=== PATIENT | male | born 1955 | race Caucasian/White ===

== ENCOUNTER → 2017-03-30 09:25 | Outpatient (CLI) | payer MEDICARE, SELFPAY ==
[2017-03-30 12:03] LABS: Absolute Lymphocyte Count 1.41 X10^3/ul (0.83-4.51); Absolute Neutrophil Count 3.3 X10^3/uL (2.0-7.7); Basophil# 0.03 X10^3/uL; Basophil% 0.5 % (0-1); Eosinophil# 0.42 X10^3/uL; Eosinophils% 7.2 % (0-5); Hematocrit 40.3 % (40-54); Hemoglobin 14.5 g/dl (13.0-16.5); Lymphocyte # 1.41 X10^3/ul (4.0); Lymphocyte % 24.3 % (19-41); Mean Corpuscular Hgb 32.4 pg (27.0-32.0); Mean Corpuscular Volume 90.2 fL (80-94); Mean Platelet Vol. 9.5 fl (6.2-12.0); Monocyte# 0.61 X10^3/uL; Monocyte% 10.5 % (0-10); Neutrophil # 3.29 X10^3/uL (2.7-7.7); Neutrophil % 56.8 % (47-70); Platelet Count 123 K/mm3 (150-450); RBC Distribution Width CV 13.4 % (11.6-14.6); RBC Distribution Width SD 43.3 fl (35.1-43.9); Red Blood Count 4.47 M/mm3 (4.6-6.2); White Blood Count 5.8 K/mm3 (4.4-11.0)
[2017-03-30 12:06] LABS: POSITIVE COUNT NO; POSITIVE DIFFERENTIAL NO; POSITIVE MORPHOLOGY NO
[2017-03-30 12:20] LABS: Hemoglobin A1c 5.6 % (4.2-6.3)
[2017-03-30 12:40] LABS: Anion Gap 11 (5-15); BUN 18 mg/dL (7-18); BUN/Creat Ratio 15.1 RATIO (10-20); Calcium,Total 8.4 mg/dL (8.5-10.1); Chloride 106 mmol/L (98-107); Cholesterol 93 mg/dL (200); Creatinine, Serum 1.19 mg/dL (0.70-1.30); EST Glomerular Filtration Rate 66 mL/min (>60); Est Glom Filt Rate - Afr Amer 80 mL/min (>60); Glucose 131 mg/dL (70-110); High Density Lipoprotein 26 mg/dL; Potassium 3.9 mmol/L (3.5-5.1); Sodium Level 140 mmol/L (136-145); Triglycerides 132 mg/dL; Very Low Density Lipoprotein 26 mg/dL (5-40)
== END ==
PROVIDERS: Family Provider Family Medicine; PCP Family Medicine; Visit Provider Family Medicine
DX: M10.9 Gout, unspecified (principal); K51.90 Ulcerative colitis, unspecified, without complications; E11.9 Type 2 diabetes mellitus without complications
CPT/HCPCS: 36415; 80048; 80061; 83036; 84550; 85025

== ENCOUNTER → 2017-09-29 07:33 | Outpatient (CLI) | payer MEDICARE, SELFPAY ==
[2017-09-29 10:45] LABS: Glucose 170 mg/dL (74-106); PSA,Total - Annual Screen 1.07 ng/mL (0.00-4.00)
[2017-09-29 10:54] LABS: Hemoglobin A1c 6.6 % (4.2-6.3)
== END ==
PROVIDERS: Family Provider Family Medicine; PCP Family Medicine; Visit Provider Family Medicine
DX: E11.9 Type 2 diabetes mellitus without complications (principal); Z12.5 Encounter for screening for malignant neoplasm of prostate
CPT/HCPCS: 36415; 82947; 83036; 84153; G0103

== ENCOUNTER → 2018-03-22 09:36 | Outpatient (CLI) | payer MEDICARE, SELFPAY ==
[2018-03-22 12:13] LABS: Anion Gap 8 (5-15); BUN 17 mg/dL (7-18); BUN/Creat Ratio 15.2 RATIO (10-20); Chloride 105 mmol/L (98-107); Cholesterol 97 mg/dL (200); Creatinine, Serum 1.12 mg/dL (0.70-1.30); EST Glomerular Filtration Rate 71 mL/min (>60); Est Glom Filt Rate - Afr Amer 86 mL/min (>60); Glucose 220 mg/dL (74-106); High Density Lipoprotein 25 mg/dL; Potassium 4.1 mmol/L (3.5-5.1); Sodium Level 140 mmol/L (136-145); Triglycerides 161 mg/dL; Very Low Density Lipoprotein 32 mg/dL (5-40)
[2018-03-22 12:18] LABS: Hemoglobin A1c 8.3 % (4.2-6.3)
--- OUTSIDE RECORDS SUMMARY | 2018-05-24 19:38 | XMS RPT_ITS ---
:1955 External Reference #:[id number] Author Organization [employer] Address [facility] [place] [address] Phone Care Team Providers Name Role Phone Jonathan Fregoso MD Unavailable Reason for Visit Reason For Visit Description Start Date Postop - subsequent visit Preliminary reason for visit data, not yet signed by the author as of right hand post Right thumb CMC arthroplasty with FCR tendoninterposition first dorsal compartment tenosynovectomy and partial trapezoid excision. on 01/12/2018 Preliminary reason for visit data, not yet signed by the author as of Chief Complaint Chief Complaint Description Start Date right hand post Right thumb CMC arthroplasty with FCR tendoninterposition first dorsal compartment tenosynovectomy and partial trapezoid excision. on 01/12/2018 Preliminary chief complaint data, not yet signed by the author as of Instructions No information available. Plan of Care Type Date Detail Appointment 08:15 AM Jonathan Fregoso MD, [address] [facility], [address], [place], [address], Appointment 09:[address] [place] [address] [address], [place], [address], Appointment 08:00 AM Jonathan Fregoso MD, [address] [facility], [address], [place], [address], Medications Medication Instructions Start Stop Generic Name NDC Provider Date Date TYLENOL EXTRA One per day for ACETAMINOPHEN [id number] Asmita C STRENGTH 500 MG pain, DiBartolomeo TABS two to three PA-C times per week. ATORVASTATIN 1 tablet daily ATORVASTATIN 00189377883 Jonathan Medina CALCIUM 10 MG /17 CALCIUM Zenobia MCMAHON TABS COLAZAL 750 MG 6 tablets daily BALSALAZIDE 23597536149 Nataliia Sumner CAPS /31 DISODIUM DIRECT MARKETING REPRESENTATIVE PRILOSEC OTC 20 1 tablet daily OMEPRAZOLE 92327052679 Nataliia Sumner MG TBEC / MAGNESIUM DIRECT MARKETING REPRESENTATIVE ALLOPURINOL 300 1 tablet daily ALLOPURINOL 44449831004 Nataliia Sumner MG TABS /09 DIRECT MARKETING REPRESENTATIVE JANUMET XR 1 tablet daily SITAGLIPTIN-MET 73315497575 Nataliia Sumner 50-1000 MG /23 FORMIN HCL DIRECT MARKETING REPRESENTATIVE [id number] LISINOPRIL 5 MG 1 tablet daily LISINOPRIL 32562346286 Nataliia Sumner TABS / DIRECT MARKETING REPRESENTATIVE Conditions or Problems Problem Problem Onset Status Entry Provider Comment Standard Annotate Name Code Date Date Description Rupture of 115662659 Active Jonathan Z Complete tear, chronic radial (SNOMED CT) 10/19 10/19 [place] thumb, collateral metacarpophala ligament of ngeal joint, right thumb radial collateral ligament Arthritis 55762139352 Active Jonathan Z Arthritis of right wrist of 09 ([facility] ezium-trape zoid joint Arthritis 03192748729 [place] [address] 10/19 10/19 [place] first carpometaca (SNOMED CT) carpometacarpchantal rpal (CMC) l joint of joint of right hand right thumb Venous 166071459 Active Brian Casas Venous insufficien (SNOMED CT) 03/08 03/08 Davey MCMAHON insufficiency cy of left of leg leg Arthritis 151381471 Active Brian Casas Disorder of mild of ankle, (SNOMED CT) 03/08 03/08 Davey MCMAHON ankle joint left Ulcerative 35229756 Active Brian Casas Ulcerative colitis (SNOMED CT) 03/08 03/08 Davey MCMAHON colitis Orthopedic 648512701 Active Brian Casas Follow-up aftercare (SNOMED CT) 03/04 03/04 Davey MCMAHON status -- left flatfoot reconstruct ion Type 2 96185646 Active Brian Casas Type 2 diabetes, (SNOMED CT) 07/08 07/08 Davey MCMAHON diabetes controlled, mellitus with neuropathy Acquired 95405547 Active Brian Casas Talipes planus left flat (SNOMED CT) 05/13 05/13 Davey MCMAHON foot Left 905663838 Active Brian Casas Tibialis tibialis (SNOMED CT) 05/13 05/13 Davey MCMAHON posterior posterior tendinitis tendonitis Posterior 42868669 Active Brian Casas Disorder of tendonopath tibialis (SNOMED CT) 05/13 05/13 Davey MCMAHON tendon y tendon insufficien cy Plantar 529060177 Active Brian Casas Plantar chronic fasciitis, (SNOMED CT) 05/13 05/13 Davey MCMAHON fasciitis left Allergies, Adverse Reactions, Alerts Observed no known allergies at Social History No information available. Vital Signs Date Name Value Unit Description BMI (Body Mass 37.15 kg/m2 Body Mass Index Index) [Ratio] Preliminary vital sign data, not yet signed by the author as of BP Diastolic 79 mm[Hg] blood pressure, diastolic Preliminary vital sign data, not yet signed by the author as of BP Systolic 134 mm[Hg] blood pressure, systolic Preliminary vital sign data, not yet signed by the author as of Heart Rate 621 /min pulse rate E&M Preliminary vital sign data, not yet signed by the author as of Height 70 [in_us] height E&M Preliminary vital sign data, not yet signed by the author as of Height 178 cm height in centimeters E&M Preliminary vital sign data, not yet signed by the author as of Weight Measured 258 [lb_av] weight E&M Preliminary vital sign data, not yet signed by the author as of Weight Measured 117 kg weight in kilograms E&M Preliminary vital sign data, not yet signed by the author as of Results Date Name Value Unit Range Flag Description Office Visit: Postop - subsequent visit, Rm: 7 MEDS REVIEW Done Documentation of current medications (procedure) Preliminary observation data, not yet signed by the author as of Preliminary observation data, not yet signed by the author as of Clinical Summary: HMSPatientID SOP account number Procedures Code Procedure Name Date Entry Date L3924 MARIA A PEE - CUSTOM PREFAB A4467 COMFORT COOL CMC SPLINT CPT-31167 Occupational Therapy Medications Administered No information available. Immunizations No information available. Advance Directives There may be information available, but it has not been provided by the sender. Assessments There may be information available, but it has not been provided by the sender. Review of Systems There may be information available, but it has not been provided by the sender. Family History There may be information available, but it has not been provided by the sender. History of Past Illness There may be information available, but it has not been provided by the sender. History of Present Illness There may be information available, but it has not been provided by the sender.
--- OUTSIDE RECORDS SUMMARY | 2018-05-24 19:38 | XMS RPT_ITS ---
:06/21/1954 Author Organization [employer] Address [address] [place] [address] Phone Care Team Providers Name Role Phone Shalini MCMAHON, Jayy Nunez Unavailable Reason for Visit Reason For Visit Description Start Date New/Est - 1st visit with physician Preliminary reason for visit data, not yet signed by the author as of right foot pain Preliminary reason for visit data, not yet signed by the author as of Chief Complaint Chief Complaint Description Start Date right foot pain Preliminary chief complaint data, not yet signed by the author as of Instructions Instruction Description Start Date Patient advised to follow-up with Primary Care Physician for BMI management. Plan of Care Type Date Detail Appointment 08:30 AM Jayy Loya MD, [address], [address], Patient education \[email or web address]\[email or web address]\CD [email or web address].pdf Medications Medication Instructions Start Stop Generic Name NDC Provider Date Date FISH OIL take once daily / FISH OIL Renetta G 13 Yuniel KIRK MAGNESIUM CAPS take once daily / MAGNESIUM OXIDE 51274911585 Renetta G 13 CAPS Yuniel KIRK FLOVENT HFA once a day / FLUTICASONE 58192701354 Mollie O INHA 27 PROPIONATE HFA Sony MCMAHON AERO GLUCOSAMINE 1 tablet daily / GLUCOSAMINE-CHONDR 49881685955 Ana CHONDR 500 11 OIT-VIT C-MN [place] COMPLEX CAPS HEALTH CARE FACILITY ADMINISTRATOR CLARITIN 10 MG 1 tablet daily / LORATADINE 38724411771 Ana TABS 11 [place] HEALTH CARE FACILITY ADMINISTRATOR VENTOLIN HFA 2 inhalations 4 / ALBUTEROL SULFATE 69994163477 Ana 108 (90 Base) times daily 11 [place] MCG/ACT AERS as needed HEALTH CARE FACILITY ADMINISTRATOR BUPROPION HCL 1 tablet daily / BUPROPION HCL 56219119280 Ana ER (SR) 150 MG 25 [place] [id number]-[id number] HEALTH CARE FACILITY ADMINISTRATOR VITAMIN D3 1 capsule daily / CHOLECALCIFEROL 16178856734 Ana 5000 UNIT CAPS 25 [place] HEALTH CARE FACILITY ADMINISTRATOR Conditions or Problems Problem Name Problem Code Onset Status Entry Provider Comment Standard Annotate Date Date Description Arthritis of 059050826059 Active Jayy B Arthritis of right foot, 9104 (SNOMED 10/19 10/19 Shalini MCMAHON right foot Fourth DIP CT) joint, right Sprain of 566844889 Active Renetta G Sprain of toe toe, fourth, (SNOMED CT) 10/12 10/12 [place] joint right PA-C Unilateral M18.11 Active Hodan O 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 Vital Signs Date Name Value Unit Description BMI (Body Mass 29.33 kg/m2 Body Mass Index Index) [Ratio] Preliminary vital sign data, not yet signed by the author as of BP Diastolic 85 mm[Hg] blood pressure, diastolic Preliminary vital sign data, not yet signed by the author as of BP Systolic 133 mm[Hg] blood pressure, systolic Preliminary vital sign data, not yet signed by the author as of Heart Rate 64 /min pulse rate E&M Preliminary vital sign data, not yet signed by the author as of Height 63 [in_us] height E&M Preliminary vital sign data, not yet signed by the author as of Height 160 cm height in centimeters E&M Preliminary vital sign data, not yet signed by the author as of Weight Measured 165 [lb_av] weight E&M Preliminary vital sign data, not yet signed by the author as of Weight Measured 75 kg weight in kilograms E&M Preliminary vital sign data, not yet signed by the author as of Results Date Name Value Unit Range Flag Description Office Visit: New/Est - 1st visit with physician, Rm: 19 MEDS REVIEW Done Documentation of current medications (procedure) Preliminary observation data, not yet signed by the author as of XRAY HX of the left foot xray history on 10/12/2017 at [facility] Preliminary observation data, not yet signed by the author as of Preliminary observation data, not yet signed by the author as of Clinical Summary: [facility] [place] Office Visit: New - 1st visit with practice, Rm: 1 MEDS REVIEW Done Documentation of current medications (procedure) Clinical Summary: [facility] [place] number Procedures Code Procedure Name Date Entry Date G8730 Pain assessment documented as positive - follow-up documented G8427 Current medications documented 1036F Tobacco screening was negative - non user G8417 BMI documented as above normal parameters - follow-up documented G8783 Blood pressure within normal parameters - no follow-up required [facility]-[id number] Patient Encounter Medications Administered No information available. Immunizations No [...]
--- OUTSIDE RECORDS SUMMARY | 2018-05-24 19:38 | XMS RPT_ITS ---
:1955 External Reference #:[id number] Author Organization [employer] Address [facility] [place] [address] Phone Care Team Providers Name Role Phone Jonathan Fregoso MD Unavailable Reason for Visit Reason For Visit Description Start Date Follow-up by complaint Preliminary reason for visit data, not yet signed by the author as of right thumb finger pain Preliminary reason for visit data, not yet signed by the author as of Chief Complaint Chief Complaint Description Start Date right thumb finger pain Preliminary chief complaint data, not yet signed by the author as of Instructions Instruction Description Start Date Patient advised to follow-up with Primary Care Physician for BMI management. Plan of Care Type Date Detail Appointment 03:45 PM Jonathan Fregoso MD, [address] [facility], [address], [place], [address], Appointment 09:15 AM Jonathan Fregoso MD, [address] [facility], [address], [place], [address], Medications Medication Instructions Start Stop Generic Name NDC Provider Date Date ATORVASTATIN 1 tablet daily / ATORVASTATIN 63980288667 Jonathan Medina CALCIUM 10 MG 17 CALCIUM Stachowishelli TABS VICODIN 5-300 1 tablet twice / HYDROCODONE-BRIANA 81763641459 Jonathan Z MG TABS daily as needed 17 TAMINOPHEN Zenobia for pain TYLENOL EXTRA as directed as / ACETAMINOPHEN 17987556793 Jonathan Medina STRENGTH 500 MG needed for pain 04 Stachowishelli TABS COLAZAL 750 MG 6 tablets daily / BALSALAZIDE 31870259421 Nataliia CAPS 31 DISODIUM Sumner COMPUTER AIDED DESIGN DESIGNER PRILOSEC OTC 20 1 tablet daily / OMEPRAZOLE 49743650927 Nataliia MG TBEC 31 MAGNESIUM Sumner COMPUTER AIDED DESIGN DESIGNER ALLOPURINOL 300 1 tablet daily / ALLOPURINOL 43440103633 Nataliia MG TABS 09 Sumner COMPUTER AIDED DESIGN DESIGNER JANUMET XR 1 tablet daily / SITAGLIPTIN-MET 38653016390 Nataliia 50-1000 MG 23 FORMIN HCL Sumner COMPUTER AIDED DESIGN DESIGNER [id number] LISINOPRIL 5 MG 1 tablet daily / LISINOPRIL 54168769577 Nataliia TABS 23 Sumner COMPUTER AIDED DESIGN DESIGNER Conditions or Problems Problem Problem Onset Status Entry Provider Comment Standard Annotate Name Code Date Date Description Rupture of 546760637 Active Jonathan Z Complete tear, chronic radial (SNOMED CT) 10/19 10/19 [place] thumb, collateral metacarpophala ligament of ngeal joint, right thumb radial collateral ligament Arthritis 62077746812 Active Jonathan Z Arthritis of right wrist of 09 (SNOMED 10/19 10/19 [facility]) ezium-trape zoid joint Arthritis 41748092579 [place] [address] 10/19 [facility] carpalyce rpal (CMC) l joint of joint of right hand right thumb Venous 515964146 Active Brian Casas Venous insufficien (SNOMED CT) 03/08 03/08 Davey MCMAHON insufficiency cy of left of leg leg Arthritis 596258409 Active Brian Casas Disorder of mild of ankle, (SNOMED CT) 03/08 03/08 Davey MCMAHON ankle joint left Ulcerative 26532048 Active Brian Casas Ulcerative colitis (SNOMED CT) 03/08 03/08 Davey MCMAHON colitis Orthopedic 933779139 Active Brian Casas Follow-up aftercare (SNOMED CT) 03/04 03/04 Davey MCMAHON status -- left flatfoot reconstruct ion Type 2 21793980 Active Brian Casas Type 2 diabetes, (SNOMED CT) 07/08 07/08 Davey MCMAHON diabetes controlled, mellitus with neuropathy Acquired 45820452 Active Brian Casas Talipes planus left flat (SNOMED CT) 05/13 05/13 Davey MCMAHON foot Left 297182885 Active Brian Casas Tibialis tibialis (SNOMED CT) 05/13 05/13 Davey MCMAHON posterior posterior tendinitis tendonitis Posterior 49976592 Active Brian Casas Disorder of tendonopath tibialis (SNOMED CT) 05/13 05/13 Davey MCMAHON tendon y tendon insufficien cy Plantar 713113794 Active Brian Casas Plantar chronic fasciitis, (SNOMED CT) 05/13 05/13 Davey MCMAHON fasciitis left Allergies, Adverse Reactions, Alerts Observed no known allergies at Social History No information available. Vital Signs Date Name Value Unit Description BMI (Body Mass 37.15 kg/m2 Body Mass Index Index) [Ratio] Preliminary vital sign data, not yet signed by the author as of BP Diastolic 72 mm[Hg] blood pressure, diastolic Preliminary vital sign data, not yet signed by the author as of BP Systolic 116 mm[Hg] blood pressure, systolic Preliminary vital sign data, not yet signed by the author as of Heart Rate 92 /min pulse rate E&M Preliminary vital sign [...] Value Unit Range Flag Description Office Visit: Follow-up by Davide connell: MEDS REVIEW Done Documentation of current medications (procedure) Preliminary observation data, not yet signed by the author as of XRAY HX of the right hand xray history on 10/19/[address] [facility] Preliminary observation data, not yet signed by [...] within normal parameters - no follow-up required [facility]-[id number] Patient Encounter Medications Administered No information available. [...]
--- OUTSIDE RECORDS SUMMARY | 2018-05-24 19:38 | XMS RPT_ITS ---
:1955 External Reference #:[id number] Author Organization [employer] Address [facility] [place] [address] Phone Care Team Providers Name Role Phone [...] Plan of Care Type Date Detail Appointment 01:15 PM Jonathan Fregoso MD, [address] [facility], [address], [place], [address], Appointment 03:45 PM Jonathan Fregoso MD, [address] [facility], [address], [place], [address], Medications Medication Instructions Start Stop Generic Name NDC Provider Date Date ATORVASTATIN 1 tablet daily / ATORVASTATIN 47701502340 Jonathan Medina CALCIUM 10 MG 17 CALCIUM Stachowishelli TABS VICODIN 5-300 1 tablet twice / HYDROCODONE-BRIANA 06549690584 Jonathan Z MG TABS daily as needed 17 TAMINOPHEN Zenobia for pain TYLENOL EXTRA as directed as / ACETAMINOPHEN 86895050179 Jonathan Medina STRENGTH 500 MG needed for pain 04 Stachowishelli TABS COLAZAL 750 MG 6 tablets daily / BALSALAZIDE 42778012623 Nataliia CAPS 31 DISODIUM Sumner TECHNOLOGIST INFECTIOUS DISEASE PRILOSEC OTC 20 1 tablet daily / OMEPRAZOLE 32973176808 Nataliia MG TBEC 31 MAGNESIUM Burak TECHNOLOGIST INFECTIOUS DISEASE ALLOPURINOL 300 1 tablet daily / ALLOPURINOL 45133634154 Nataliia MG TABS 09 Sumner TECHNOLOGIST INFECTIOUS DISEASE JANUMET XR 1 tablet daily / SITAGLIPTIN-MET 15622332345 Nataliia 50-1000 MG 23 FORMIN HCL Sumner TECHNOLOGIST INFECTIOUS DISEASE [id number] LISINOPRIL 5 MG 1 tablet daily / LISINOPRIL 27645881714 Nataliia TABS 23 Sumner TECHNOLOGIST INFECTIOUS DISEASE Conditions or Problems Problem Problem Onset Status Entry Provider Comment Standard Annotate Name Code Date Date Description Rupture of 441708979 Active Jonathan Z Complete tear, chronic radial (SNOMED CT) 10/19 10/19 [place] thumb, collateral metacarpophala ligament of ngeal joint, right thumb radial collateral ligament Arthritis 61809798082 Active Jonathan Z Arthritis of right wrist of 09 (OMED 10/19 10/19 [facility] wrist scapho-trap CT) ezium-trape zoid joint Arthritis 65891100864 [place] [address] 10/19 [facility] carpometacarpchantal rpal (CMC) l joint of joint of right hand right thumb Venous 980943880 Active Brian Casas Venous insufficien (SNOMED CT) 03/08 03/08 Davey MCMAHON insufficiency cy of left of leg leg Arthritis 585285141 Active Brian Casas Disorder of mild of ankle, (SNOMED CT) 03/08 03/08 Davey MCMAHON ankle joint left Ulcerative 73103651 Active Brian Casas Ulcerative colitis (SNOMED CT) 03/08 03/08 Davey MCMAHON colitis Orthopedic 883985470 Active Brian Casas Follow-up aftercare (SNOMED CT) 03/04 03/04 Davey MCMAHON status -- left flatfoot reconstruct ion Type 2 68936545 Active Brian Casas Type 2 diabetes, (SNOMED CT) 07/08 07/08 Davey MCMAHON diabetes controlled, mellitus with neuropathy Acquired 93268959 Active Brian L Pes planus left flat (SNOMED CT) 05/13 05/13 Davey MCMAHON foot Left 411180551 Active Brian L Tibialis tibialis (SNOMED CT) 05/13 05/13 Davey MCMAHON posterior posterior tendinitis tendonitis Posterior 64720636 Active Brian L Disorder of tendonopath tibialis (SNOMED CT) 05/13 05/13 Davey MCMAHON tendon y tendon insufficien cy Plantar 822586560 Active Brian L Plantar chronic fasciitis, (SNOMED CT) 05/13 05/13 Davey MCMAHON fasciitis left Allergies, Adverse Reactions, Alerts Observed no known allergies at Social History No information available. Vital Signs Date Name Value Unit Description BMI (Body Mass 37.15 kg/m2 Body Mass Index Index) [Ratio] Preliminary vital sign data, not yet signed by the author as of BP Diastolic 71 mm[Hg] blood pressure, diastolic Preliminary vital sign data, not yet signed by the author as of BP Systolic 107 mm[Hg] blood pressure, systolic Preliminary vital sign data, not yet signed by the author as of Heart Rate 80 /min pulse rate E&M Preliminary vital sign [...] Range Flag Description Office Visit: Follow-up by ko, Rm: MEDS REVIEW Done Documentation of current medications (procedure) Preliminary observation data, not yet signed by the author as of Preliminary observation data, not yet signed by the author as of Clinical Summary: HMSPatientID SOP account number Procedures Code Procedure Name Date Entry Date CPT-05204 Small/Minor Joint or Bursa injection/aspiration - Right CPT-J0702 Injection - betamethasone acetate 3 mg and betamethasone sodium phosphate 3 mg G8730 Pain assessment documented as positive - follow-up documented G8427 Current medications documented 1036F Tobacco screening was negative - non user G8419 BMI outside of normal parameters - no follow-up plan/reason not given G8783 Blood pressure within normal parameters - no follow-up required [facility]-[id number] Patient Encounter Medications Administered No information available. [...]
--- OUTSIDE RECORDS SUMMARY | 2018-05-24 19:38 | XMS RPT_ITS ---
:1955 External Reference #:[id number] Author Organization [facility] Address [address] [place] [address] Phone Care Team Providers Name Role Phone Asmita Gordon PA-C Unavailable Reason for Visit Reason For Visit Description Start Date Postop - 1st visit Preliminary reason for visit data, not [...] Plan of Care Type Date Detail Appointment 09:15 AM Asmita Gordon PA-C, [address] [facility], [place], [address], Appointment 11:00 AM Kathy Posadas OTRL, [address] [facility] [address], [place], [address], Appointment 08:15 AM Jonathan Fregoso MD, [address] [facility], [address], [place], [address], Pending order XR HAND 3+ VWS-RT Medications Medication Instructions Start Stop Generic Name NDC Provider Date Date PERCOCET 5-325 Take 1 tab by OXYCODONE-ACETA [id number] Asmita C MG TABS mouth / MINOPHEN DiBartolomeo 6hrs as needed PA-C for pain TYLENOL EXTRA One per day for ACETAMINOPHEN [id number] Asmita C STRENGTH 500 MG pain, DiBartolomeo TABS two to three PA-C times per week. ATORVASTATIN 1 tablet daily ATORVASTATIN [id number] Jonathan Medina CALCIUM 10 MG /17 CALCIUM Zenobia MCMAHON TABS COLAZAL 750 MG 6 tablets daily BALSALAZIDE 89512383754 Nataliia Sumner CAPS / DISODIUM INDUSTRIAL RELATIONS WORKER PRILOSEC OTC 20 1 tablet daily OMEPRAZOLE 67501225501 Nataliia Sumner MG TBEC MAGNESIUM INDUSTRIAL RELATIONS WORKER ALLOPURINOL 300 1 tablet daily ALLOPURINOL 43556028911 Nataliia Sumner MG TABS /09 INDUSTRIAL [employer]ATIONS WORKER JANUMET XR 1 tablet daily SITAGLIPTIN-MET 97147117025 Nataliia Sumner 50-1000 MG /23 FORMIN HCL INDUSTRIAL RELATIONS WORKER [id number] LISINOPRIL 5 MG 1 tablet daily LISINOPRIL 64901636597 Nataliia Sumner TABS /23 INDUSTRIAL [employer]ATIONS WORKER Conditions or Problems Problem Problem Onset Status Entry Provider Comment Standard Annotate Name Code Date Date Description Rupture of 061793319 Active Jonathan Z Complete tear, chronic radial (SNOMED CT) 10/19 10/19 Zenobia thumb, collateral metacarpophala ligament of ngeal joint, right thumb radial collateral ligament Arthritis 43243844987 Active Jonathan Z 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 carpometaca (SNOMED CT) MD fernando barth ([facility]) l joint of joint of right hand right thumb Venous 639648082 Active Brian Casas Venous insufficien (SNOMED CT) 03/08 03/08 Davey MCMAHON insufficiency cy of left of leg leg Arthritis 355164937 Active Brian Casas Disorder of mild of ankle, (SNOMED CT) 03/08 03/08 Davey MCMAHON ankle joint left Ulcerative 23294066 Active Brian Casas Ulcerative colitis (SNOMED CT) 03/08 03/08 Davey MCMAHON colitis Orthopedic 249901044 Active Brian Casas Follow-up aftercare (SNOMED CT) 03/04 03/04 Davey MCMAHON status -- left flatfoot reconstruct ion Type 2 71542326 Active Brian Casas Type 2 diabetes, (SNOMED CT) 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 07/08 Davey MCMAHON diabetes controlled, mellitus with neuropathy Acquired 79048018 Active Brian Casas Talipes planus left flat (SNOMED CT) 05/13 05/13 Davey MCMAHON foot Left 596419042 Active Brian Casas Tibialis tibialis (SNOMED CT) 05/13 05/13 Davey MCMAHON posterior posterior tendinitis tendonitis Posterior 13025043 Active Brian Casas Disorder of tendonopath tibialis (SNOMED CT) 05/13 05/13 Davey MCMAHON tendon y tendon insufficien cy Plantar 493427056 Active Brian Casas Plantar chronic fasciitis, (SNOMED CT) 05/13 05/13 Davey MCMAHON fasciitis left Allergies, Adverse Reactions, Alerts Observed no known allergies at Social History No information available. Vital Signs Date Name Value Unit Description BMI (Body Mass 37.15 kg/m2 Body Mass Index Index) [Ratio] Preliminary vital sign data, not yet signed by the author as of Body Temperature 98.0 [degF] temperature E&M Preliminary vital sign data, not yet signed by the author as of Body Temperature 36.7 Myesha temperature in centigrade E&M Preliminary vital sign data, not yet signed by the author as of BP Diastolic 77 mm[Hg] blood pressure, diastolic Preliminary vital sign data, not yet signed by the author as of BP Systolic 125 mm[Hg] blood pressure, systolic Preliminary vital sign [...] Range Flag Description Office Visit: Postop - 1st visit, Rm: MEDS REVIEW Done Documentation of current medications (procedure) Preliminary observation data, not yet signed by the author as of Preliminary observation data, not yet signed by the author as of Clinical Summary: HMSPatientID SOP account number Procedures Code Procedure Name Date Entry Date [id number]-12679 Occupational Therapy L3808 [facility]FO CUSTOM STATIC G8509 Pain assessment documented as positive - no follow-up/reason not given G8427 Current medications documented 1036F Tobacco screening was negative - non user G8417 BMI documented as above normal parameters - follow-up documented G8783 Blood pressure within normal parameters - no follow-up required [facility]-[id number] Patient Encounter Medications Administered No information available. [...]
--- OUTSIDE RECORDS SUMMARY | 2018-05-24 19:39 | XMS RPT_ITS ---
:1955 Author Organization OHIP Care Team Providers Name Role Phone Angelito Zuniga Attending Unavailable Efrain, Angelito Referring Unavailable Zuniga, Angelito Primary Care Unavailable Angelito Zuniga Attending Unavailable Zuniga, Angelito Referring Unavailable Zuniga, Angelito Primary Care Unavailable Efrain, Angelito Attending Unavailable Zuniga, Angelito Referring Unavailable Efrain, Angelito Primary Care Unavailable BRE PINEDA Admitting Unavailable NAMAN CABRERA Attending Unavailable NAGA CHILEL Consulting Unavailable BRE PINEDA Admitting Unavailable Angelito Zuniga Primary Care Unavailable MD NAMAN CABRERA Attending Unavailable NAGA CHILEL Consulting Unavailable PROBLEMS PROBLEMS DATE TYPE CONDITION / ATTENDING STATUS SOURCE CODE 07/29/2017 Active Unknown / NAMAN CABRERA Active [facility] UNK(Unknown) Other [place] [facility] 07/29/2017 Admitting Unknown / MD NAMAN CABRERA Active [facility] UNK(Unknown) [facility] PROCEDURES PROCEDURES No Procedure Records FoundRESULTS RESULTS BASIC METABOLIC Collected: 03/22/2018 Status: F Source: [place] PROFILE (BMP) 9:41 AM [facility] REPOSITORY Order Comment: Order Date: 10/06/17 Order Info: 0667-1 - BMP Order Info: 81163-9 - LIPID TYPE CODE TESTS RESULT OUT OF RANGE REFERENCE UNITS LAB L501.0100 74-106 mg/dL High GLU 220 Result Comment: Glucose result greater than or equal to 200 mg/dL suggests DIABETES MELLITUS per A.D.A. criteria. Please note revised GLUCOSE reference range effective 2017. LAB L501.1000 7-18 mg/dL Normal BUN 17 LAB L501.1100 0.70-1.30 mg/dL Normal CREAT,SERUM 1.12 Result Comment: The validity of the calculated GFR AND GFRAA in patients over 70 years has not been determined. Clinical correlation is essential. LAB L501.1110 >60 mL/min Normal EST GFR 71 Result Comment: Non- GFR Calc LAB L501.1115 >60 mL/min Normal EST GFR - AA 86 Result Comment: GFR Calc LAB L501.1300 10-20 RATIO Normal BUN/CRE 15.2 LAB L501.2200 8.5-10.1 mg/dL CA Normal 9.0 LAB L501.5300 136-145 mmol/L NA Normal 140 LAB L501.5600 3.5-5.1 mmol/L K Normal 4.1 LAB L501.5900 98-107 mmol/L CL Normal 105 LAB L501.6100 21.0-32.0 mmol/L Normal CO2 27.0 LAB L501.6200 5-15 Normal GAP 8 Performed By: #### L500.2500, L500.4100, L501.9985 #### [facility] [address] [place], [address] LIPID PROFILE Collected: 03/22/2018 Status: F Source: [place] 9:41 AM [facility] REPOSITORY Order Comment: Order Date: 10/06/17 Order Info: 0667-1 - BMP Order Info: 22670-0 - LIPID TYPE CODE TESTS RESULT OUT OF RANGE REFERENCE UNITS LAB L501.4900 200 mg/dL Normal CHOL 97 Result Comment: <200 mg/dL Desirable 200-240 mg/dL Borderline >240 mg/dL High Risk LAB L501.5000 mg/dL Normal TRIG 161 Result Comment: The drugs N-Acetylcysteine and Metamizole may falsely depress this assay. Serum Triglycerides Reference Interval Normal <150 mg/dL Borderline high 150 - 199 mg/dL High 200 - 499 mg/dL Very High > or = 500 mg/dL LAB L501.6400 mg/dL Low HDL 25 Result Comment: The drugs N-Acetylcysteine and Metamizole may falsely depress this assay. Reference Range HDL <40 mg/dL Low HDL Cholesterol HDL >or= 60 mg/dL High HDL Cholesterol LAB L501.6500 0-130 mg/dL Normal LDL 40 LAB L501.6600 5-40 mg/dL Normal VLDL 32 Performed By: #### L500.2500, L500.4100, L501.9985 #### [facility] [address] [place], [address] HEMOGLOBIN A1C Collected: 03/22/2018 Status: F Source: [place] 9:41 AM [facility] REPOSITORY Order Comment: Order Date: 10/06/17 Order Info: 4548-4 - A1C TYPE CODE TESTS RESULT OUT OF RANGE REFERENCE UNITS LAB L501.9985 4.2-6.3 % High HGB A1C 8.3 Performed By: #### L500.2500, L500.4100, L501.9985 #### [facility] [address] [place], [address] GLUCOSE Collected: 09/29/2017 Status: F Source: [place] 7:36 AM [facility] REPOSITORY Order Comment: Order Date: 04/09/17 Order Info: [id number] - GLU Order Info: 2857-1 - PSA TYPE CODE TESTS RESULT OUT OF RANGE REFERENCE UNITS LAB L501.0100 74-106 mg/dL High GLU 170 Result Comment: Fasting Glucose result greater than or equal to 126 mg/dL suggests DIABETES MELLITUS per A.D.A. criteria. Please note revised GLUCOSE reference range effective 2017. Performed By: #### L501.0100, L501.9910, L501.9985 #### [facility] [address] [place], [address] PSA,TOTAL - ANNUAL Collected: 09/29/2017 Status: F Source: [place] SCREEN 7:36 [facility] REPOSITORY Order Comment: Order Date: 04/09/17 Order Info: [id number] - GLU Order Info: 2857-1 - PSA TYPE CODE TESTS RESULT OUT OF RANGE REFERENCE UNITS LAB L501.9910 0.00-4.00 ng/mL Normal PSA,TOT 1.07 SCREEN Result Comment: This test was performed using the TPSA assay method for the [employer] chemistry system. Values obtained with different assay methods cannot be used interchangably. When changing PSA assays in the course of monitoring a patient, additional sequential testing should be carried out to confirm baseline values. Performed By: #### L501.0100, L501.9910, L501.9985 #### [facility] [address] [facility] [place], [address] HEMOGLOBIN A1C Collected: 09/29/2017 Status: F Source: [place] 7:36 [facility] REPOSITORY Order Comment: Order Date: 04/09/17 Order Info: 4548-4 - A1C TYPE CODE TESTS RESULT OUT OF RANGE REFERENCE UNITS LAB L501.9985 4.2-6.3 % High HGB A1C 6.6 Performed By: #### L501.0100, L501.9910, L501.9985 #### [facility] [address] [facility] [facility] [place], [place], [address] PLAN OF CARE Observed: 07/29/2017 Status: COMPLETED Source: [place] 3:12 PM CLINIC OTHER CAMPUS REPOSITORY HNO ID: [id number] Author: Diana Card (Pharmacist) Service: Pharmacy Author Type: Pharmacist Type: Plan of Care Filed: 07/29/2017 3:13 PM Note Text: PHARMACY DISCHARGE MEDICATION COUNSELING PATIENT NAME: David Lew DATE of SERVICE: July 29, 2017 TIME of SERVICE: 3:13 PM The patient accepted medication counseling for the discharge medications below. The patient was given the opportunity to ask questions regarding medication indication, interactions and side effects. Discharge Medications: Current Discharge Medication List START taking these medications predniSONE (DELTASONE) 60 mg Take 60 mg by mouth as directed. Take 60mg daily for 4 days, followed by 50mg x 1 day, 40mg x 1 day, 30mg x 1 day, 20mg x 1 day, 10mg x 1 day Qty: 30 tablet Refills: 0 insulin lispro (HumaLOG KWIKPEN) 1-5 Units Inject 1-5 Units subcutaneously w MEALS. ADMINISTER CORRECTIONAL INSULIN REGARDLESS OF MEAL OR NUTRITION INTAKE Scale 1 If Blood Glucose (mg/dL) is: Less than 110 Give 0 units 111-150 Give 0 units 151-200 Give 1 unit 201-250 Give 2 units 251-300 Give 3 units 301-350 Give 4 units 351-400 Give 5 units Greater than 400 Give 5 units and Notify PCP pen needle, diabetic 1 Units 1 Units before meals and at bedtime. Qty: 50 Each Refills: 0 Comments: Diagnosis : diabetes mellitus - uncontrolled, test AC/HS CONTINUE these medications which have CHANGED omeprazole (PriLOSEC) 20 mg Take 20 mg by mouth once daily. Qty: 30 capsule Refills: 0 CONTINUE these medications which have NOT CHANGED lisinopril (ZESTRIL, PRINIVIL) 5 mg Take 5 mg by mouth once daily. sitaGLIPtin-metFORMIN 0.5 tablets Take 0.5 tablets by mouth twice daily. atorvastatin (LIPITOR) 10 mg Take 10 mg by mouth. ALLOPURINOL 300 MG TAB Take one(1) tablet daily. Refills: 0 balsalazide disodium(COLAZAL 750 MG CAP) Take one(1) tablet daily. Refills: 0 Patient verbalizes understanding of counseling. Signature: DIANA CARD PHARMACIST Pager: [phone] Date: July 29, 2017 Time: 3:12 PM CNDS Observed: 07/29/2017 Status: COMPLETED Source: [place] 2:09 PM CLINIC OTHER CAMPUS REPOSITORY [facility] ID: [id number] Author: Naman Cabrera Service: Hospital Medicine Author Type: Physician Type: Discharge Summaries Filed: 07/29/2017 2:43 PM Note Text: DISCHARGE SUMMARY PATIENT NAME: David Lew Admission Information Admission Information ADMIT DATE: 07/29/2017 DISCHARGE DATE: 07/29/2017 MY DOCTORS AND MEDICAL TEAM: My Main Hospital Doctor: Naman Cabrera Primary Care Provider: Angelito Zuniga MD My Medical Team Members: Treatment Team: Attending Provider: Naman Cabrera Consulting: Naga Chilel Primary Service: Nitesh Pacheco MY CONDITION AT DISCHARGE: REASON I WAS IN THE HOSPITAL: SUMMARY OF WHAT HAPPENED WHILE I WAS IN THE HOSPITAL: Patient was admitted for . This is a 62 yo CM with a PMHx of DM II, HTN, HLD, UC who presented with Rt facial droop. CT head was negative. MRI./A showed no evidence of ischemia. 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 Pt was started prednisone taper over 10 days. Pt advised to monitor his blood sugars and use SSI if his sugars are high. Pt also found to have a TSH of 6. Pt advised to follow up with his PCP 1. Please follow up with your PCP within 7-10 days. If you do not have a PCP please call [facility] for an appointment until you can establish a PCP. [phone]. You may also call the [facility] Appointment line at [phone] to establish a new PCP 2. Check your blood sugars before meals and before bedtime. If your sugars go above OTHER PROBLEMS/DIAGNOSIS: Principal Problem: Facial droop Active Problems: Obesity, Class II, BMI 35-39.9 DM (diabetes mellitus), type 2 (HCC) Ulcerative colitis, unspecified Poe's palsy Resolved Problems: * No resolved hospital problems. * OPERATIONS PERFORMED WHILE IN THE HOSPITAL: IMPORTANT TEST/PROCEDURES: TEST RESULTS NOT AVAILABLE AT THIS TIME: No pending results Discharge Disposition Activity When You Leave the Hospital Activity Diet Instructions Diet diabetic FOLLOW-UP APPOINTMENTS ALREADY SCHEDULED WITH A [facility] PROVIDER: No future appointments. DISCHARGE MEDICATION: Current Discharge Medication List START taking these medications predniSONE (DELTASONE) 60 mg Take 60 mg by mouth as directed. Take 60mg daily for 4 days, followed by 50mg x 1 day, 40mg x 1 day, 30mg x 1 day, 20mg x 1 day, 10mg x 1 day Qty: 30 tablet Refills: 0 insulin lispro (HumaLOG KWIKPEN) 1-5 Units Inject 1-5 Units subcutaneously w MEALS. ADMINISTER CORRECTIONAL INSULIN REGARDLESS OF MEAL OR NUTRITION INTAKE Scale 1 If Blood Glucose (mg/dL) is: Less than 110 Give 0 units 111-150 Give 0 units 151-200 Give 1 unit 201-250 Give 2 units 251-300 Give 3 units 301-350 Give 4 units 351-400 Give 5 units Greater than 400 Give 5 units and Notify PCP pen needle, diabetic 1 Units 1 Units before meals and at bedtime. Qty: 50 Each Refills: 0 Comments: Diagnosis : diabetes mellitus - uncontrolled, test AC/HS CONTINUE these medications which have CHANGED omeprazole (PriLOSEC) 20 mg Take 20 mg by mouth once daily. Qty: 30 capsule Refills: 0 CONTINUE these medications which have NOT CHANGED lisinopril (ZESTRIL, PRINIVIL) 5 mg Take 5 mg by mouth once daily. sitaGLIPtin-metFORMIN 0.5 tablets Take 0.5 tablets by mouth twice daily. atorvastatin (LIPITOR) 10 mg Take 10 mg by mouth. ALLOPURINOL 300 MG TAB Take one(1) tablet daily. Refills: 0 balsalazide disodium(COLAZAL 750 MG CAP) Take one(1) tablet daily. Refills: 0 S: pt has no complaints except Rt facial droop. Discharge Physical Exam: VITAL SIGNS: BP 126/68 Pulse 62 Temp 36.6 ?C (97.9 ?F) (Oral) Resp 18 Ht 177.8 cm (5' 10) Wt 116 kg (255 lb 11.7 oz) SpO2 93% BMI 36.69 kg/m? GENERAL: Alert, no distress, cooperative HEENT: facial droop Rt LUNGS: Lungs clear to auscultation, Good diaphragmatic excursion CARDIAC: Normal S1 and S2; no rubs, murmurs, or gallops ABDOMEN: Abdomen soft, non-tender, BS normal, No masses or organomegaly EXTREMITIES: Extremities normal, no deformities, edema, clubbing or skin discoloration. Good capillary refill., No ulcers TIME OF CARE: Discharge Management: I personally spent greater than 30 minutes involved in the discharge management of this patient. SIGNATURE: Naman Cabrera MD PAGER/CONTACT #: DATE: July 29, 2017 TIME: 2:42 PM CASE MGT INIT Observed: 07/29/2017 Status: COMPLETED Source: [facility] 11:55 AM CLINIC OTHER CAMPUS REPOSITORY HNO ID: [id number] Author: Trinity Shahid) TOSHIA Gonzalez Service: Care Management Author Type: Registered Nurse Type: Care Mgt Initial Assessment Filed: 07/29/2017 11:57 AM Note Text: CARE MANAGEMENT: ASSESSMENT AND DISCHARGE PLAN SERVICE DATE: 07/29/2017 SERVICE TIME: 1155 PRIMARY CARE PHYSICIAN: Angelito Zuniga MD ADMISSION STATUS: Observation Needs Prior to Discharge: None MEDICAL: Patient/[employer] Stated Goals: To return home to life as it was Health Insurance: [facility] . Health Issues Impacting Discharge Plan: None Last Admission Date: none Is this Within the Past 30 days? No Advance Directive: Health Literacy: 1. How often do you need to have someone help you when you read instructions, pamphlets, or other written material from your doctor or pharmacy? Never - 1 2. How confident are you filling out medical forms by yourself? Extremely - 1 If Patient scores > 3 on either question, the following interventions were put into place: Patient did not score > 3 FUNCTIONAL AND COGNITIVE/BEHAVIORAL PRIOR TO ADMISSION: Baseline Mental Status: Alert AND Oriented, Person, Place , Time and Situation Functional Status: Independent Does Patient Currently Receive Any Community Services or Home Care? None Equipment Prior to Admission: None Has the Patient Been in a Custodial Facility in the Past 30 days? N/A SOCIAL: Living Arrangement: Home Lives With: Spouse Financial Resources: Retired Primary Contact: Extended Emergency Contact Information Primary Emergency Contact: Sarah Lew Address: [address] [place] [address] Mobile Relation: Spouse Supportive: Yes Other Important Patient Contacts: None Caregiver Assessment: Caregiver is ready, willing and able to meet the patient's needs as recommended by the inter-professional team? No Caregiver Needed Patient's transition needs and plan for meeting these needs: . Does the patient have an acute stroke diagnosis, or has the patient had a stroke during this admission? No Medication Adherence: I am convinced of the importance of my prescription medication: Agree completely - 0 I worry that my prescription medication will do more harm than good to me Disagree mostly - 0 I feel financially burdened by my [id number] expenses for my prescription medication: Disagree mostly -0 Patient is categorized as low risk < 2 Are you interested in bedside delivery of your medications? Yes Food Concerns: In the Last Month, Have You had Trouble Getting Food? No trouble getting food During the Last Month, Have You Worried Whether Your Food Would Run Out Before You Had Enough Money to Buy More? No Is the Patient Psychosocially Complex? No ASSESSMENT AND PLAN: Medical Needs: None Psychosocial Needs: None FREEDOM OF CHOICE EXPLAINED: N/A POTENTIAL TRANSITION PLANS Home Spoke with pt at the bedside. Pt states that he lives at home with his indept OB SCRUB TECH. Plan for pt to return home - no needs noted. Will follow. SIGNATURE: Trinity Gonzalez RN PATIENT NAME: David Lew DATE: July 29, 2017 TIME: 11:55 AM PAGER/CONTACT #: [phone] CONSULT Observed: 07/29/2017 Status: COMPLETED Source: [place] 11:27 AM CLINIC OTHER CAMPUS REPOSITORY O ID: [id number] Author: Wendy Kohler MD Service: Neurology Author Type: Physician Type: Consults Filed: 07/29/2017 11:39 AM Note Text: Neurology Consultation Note Date: July 29, 2017 Patient Name: David Lew Neurology was requested to evaluate David Lew, a 62 year old male for a chief complaint of facial droop. Our recommendations of care will be communicated by shared medical record. HPI: 62 year old pleasant male with hx of DM2, hypertension, hyperlipidemia presented to [facility] with acute headache and right sided facial droop. Noted above symptoms yesterday morning, with leakage of liquids from side of his mouth. He also noted inability to close eyes completely. Presented to ER where workup included CT head which was unremarkable. Basic labs were also normal apart from mild TIFFANIE. Examination was unclear in the ER with some concern of possibly supranuclear seventh nerve paralysis and therefore he was admitted for further workup. This a.m feels stable but still has persistence of right sided facial weakness. Endorses recent stress after passing away of his mother last week. Also had a tick bite 10 days ago without any eventual rash/target lesion. Received Abx from his PCP. Has had numerous bites previously as he works with [employer]. OUTPATIENT MEDICATIONS lisinopril (ZESTRIL, PRINIVIL) 5 mg tablet Take 5 mg by mouth once daily. sitaGLIPtin-metFORMIN 50-1,000 mg per tablet Take 0.5 tablets by mouth twice daily. atorvastatin (LIPITOR) 10 mg tablet Take 10 mg by mouth. ALLOPURINOL 300 MG TAB Take one(1) tablet daily. omeprazole(PRILOSEC 10 MG CAP) Take one(1) capsule daily. balsalazide disodium(COLAZAL 750 MG CAP) Take one(1) tablet daily. MEDICAL HISTORY PAST MEDICAL HISTORY Diagnosis Date - Chronic cholecystitis - DM (diabetes mellitus), type 2 (HCC) - Ulcerative colitis, unspecified SURGICAL HISTORY PAST SURGICAL HISTORY Procedure Laterality Date - LAP CHOLECYSTECT/CHOLANGIOGRAPHY 03/09/07 - PAST SURGICAL HISTORY OF 5 knee surgeries bilateral - PAST SURGICAL HISTORY OF right shoulder and bilateral foot surgeries - TOTAL KNEE REPLACEMENT 01/19/2007 left knee SOCIAL HISTORY Social History Marital status: Spouse name: Years of education: Number of children: Occupational History Occupation Employer Comment retired Social History Main Topics Smoking status: Never Smoker Smokeless tobacco: Never Used Alcohol use: No Drug use: No Other Topics Concern Caffeine Concern Yes Hobby Hazards No Sleep Concern No Stress Concern No Weight Concern Yes Special Diet Yes Exercise Yes Social History Narrative Lives with his . Is independent FAMILY HISTORY FAMILY HISTORY Problem Relation Age of Onset - Colon Cancer Paternal Grandfather - Diabetes Mother ALLERGIES ALLERGIES No Known Allergies REVIEW OF SYSTEMS: GENERAL: No fevers or irritability. Normal sleep, appetite and activity HEENT: No problems with hearing, no nose bleeds or other nasal problems. NECK: Negative for stiffness, lumps or significant neck swelling RESPIRATORY: Negative for cough, wheezing or respiratory distress. CARDIOVASCULAR: Negative for chest pain, syncope, lightheadness or heart racing. GI: Negative for abdominal discomfort, blood in stools or black stools or change in bowel habits : No history of dysuria, frequency or incontinence MUSCULOSKELETAL: Negative for joint pain or swelling, back pain or muscle pain. SKIN: Negative for lesions, rash, and itching. NEURO: No weakness, seizures or change in mental status. PHYSICAL EXAM: Vital Signs: BP 127/67 Pulse 65 Temp 36.7 ?C (98.1 ?F) (Oral) Resp 18 Ht 177.8 cm (5' 10) Wt 116 kg (255 lb 11.7 oz) SpO2 98% BMI 36.69 kg/m? In no acute distress. HEENT normal. Pulses are palpable bilaterally. No clubbing, cyanosis, stigmata of infective endocarditis. Patient's language is intact to comprehension and repetition. Speech is fluent. Mood is appropriate. Fund of knowledge is adequate.Patient is aware and oriented. Follows commands. Cranial Nerves: Pupils are equal and reactive. Extra-ocular movements are intact in all axes. There is no gaze evoked or spontaneous nystagmus. Visual velasco are full to confrontation. There is no evidence of APD. Facial sensation is intact. Facial muscles are mildly asymmetric with right LMN type facial droop. There is also mild asymmetry of forehead muscles. Tongue and uvula are midline. Shoulder shrug is intact and symmetric. Motor exam reveals normal bulk and tone and no involuntary movements. There is no evidence of cogwheeling rigidity. There is no evidence of bradykinesia. Strength testing showed normal and symmetric strength in all extremities. Muscle stretch reflexes showed 2+ and symmetric reflexes bilaterally. There were no pathological reflexes elicited. Sensation is intact to fine touch and sharp touch. Vibration and proprioceptive sensations were normal. There is no evidence of sensory inattention with simultaneous stimulation. Finger to nose and heel to johnson testing revealed no evidence of dysmetria. Rapid alternating movements revealed no evidence of dysdiadochokinesia. Gait is normal appearing with symmetric arm swing. Romberg's testing was negative. LABS/DATA: WBC (thou/cmm) Date Value 07/29/2017 7.17 07/28/2017 8.2 RBC (mil/cmm) Date Value 07/29/2017 4.31 07/28/2017 4.58 Platelet Count (thou/cmm) Date Value 07/29/2017 108 07/28/2017 131 BUN (mg/dL) Date Value 07/29/2017 23 07/28/2017 24 Creatinine (mg/dL) Date Value 07/29/2017 1.21 07/28/2017 1.35 No results found for: NEUTP, ABSNEUT, LYMPHP, ABSLYMPH, ABSMONO, EODINP, ABSEOSIN, BASOP, ABSBASO Lab Results Component Value Date PLT 108 07/29/2017 HB 14.0 07/29/2017 HCT 39.0 07/29/2017 CA 8.6 07/29/2017 GLUC 181 07/29/2017 BUN 23 07/29/2017 NA 136 07/29/2017 K 4.0 07/29/2017 CHLOR 106 07/29/2017 CO2 25 07/29/2017 ANION 9 07/29/2017 No results found for: WSR, CRP, IGG No results found for: USCRP Cholesterol, Total (mg/dL) Date Value 07/29/2017 110 LDL Calculated (mg/dL) Date Value 07/29/2017 40 HDL Cholesterol (mg/dL) Date Value 07/29/2017 22 Triglyceride (mg/dL) Date Value 07/29/2017 242 Hemoglobin A1C (%) Date Value 07/29/2017 6.8 IMAGING: MRI brain wo: No acute process ASSESSMENT: 1. Poe's palsy: - likely in setting of recent stressor - Start Prednisone 60 mg with taper over 7-10 days - emphasized that glycemic control may be impaired during course of prednisone - will not prescribe Valtrex given mild symptoms and mild TIFFANIE - eye patch to keep R eye closed - artifical tears PRN - will sign off Wendy Kohler MD [facility], Department of Neurology CC: Referring Physician: No referring provider defined for this encounter. PCP: Angelito Zuniga MD ([facility]) [address] [place] [address] MRA BRAIN W/O Observed: 07/29/2017 Status: F Source: [place] CONTRAST 8:50 AM HEALTH SYSTEM REPOSITORY Performed at [facility] APPROVED BY: Robb Mann MD EXAMINATION: MRI BRAIN W/O CONTRAST, MRA BRAIN W/O CONTRAST, MRA NECK W/O CONTRAST HISTORY: Headache and right-sided facial droop. Possible stroke. TECHNIQUE: Routine noncontrast MRI protocol including diffusion and gradient echo images. Intracranial and extracranial 3D [id number] MRA with 2D multiplanar and 3D maximum intensity projections calculated on the imaging workstation under physician supervision. MQ: [id number] COMPARISON: Comparison made to noncontrast head CT dated 07/28/2017. RESULT: BRAIN: Acute Change: There is no evidence of restricted diffusion to suggest an acute infarct. Hemorrhage: No evidence of prior parenchymal hemorrhage on the gradient echo images. Mass Lesion/ Mass Effect: No evidence of an intracranial mass or extra-axial fluid collection. No significant mass effect. Chronic Change: Scattered punctate foci of increased T2 and FLAIR signal are noted in the supratentorial white matter which is a nonspecific finding, but likely represents minimal chronic microvascular ischemia. Parenchyma: No significant volume loss for age. The brain parenchyma is otherwise within normal limits of signal intensity and morphology. Ventricles: Normal caliber and morphology. Skull Base: Hypothalamic and pituitary region are grossly normal. Craniocervical junction is normal. No significant marrow replacement process. Vasculature: Major intracranial arterial structures, and dural venous sinuses show typical flow void, suggesting patency by spin echo criteria. Other: The visualized paranasal sinuses and mastoid air cells are clear. The orbits and extracranial soft tissues are unremarkable. INTRACRANIAL MRA: Intracranial ICAs within normal limits. Proximal MCA segments intact. Hypoplastic right A1 segment. HA vasculature otherwise within normal limits. There is a /near origin of the left posterior cerebral artery. Intracranial vertebral arteries, basilar artery, superior cerebellar arteries, and posterior cerebral arteries within normal limits. EXTRACRANIAL MRA: Carotid Stenosis: Right Common: No significant stenosis. Right Internal Plaque: No significant plaque formation. Right Internal Carotid Stenosis (% by NASCET Criteria): None measurable Left Common: No significant stenosis. Left Internal Carotid Plaque: No significant plaque formation. Left Internal Carotid Stenosis (% by NASCET Criteria): None measurable Cervical Vertebral Arteries: Patency: Bilateral Dominance: Left IMPRESSION: MRI BRAIN: No acute intracranial process. Negative for acute ischemia/infarct. Minimal presumed chronic microvascular ischemic change throughout the supratentorial white matter. MRA BRAIN: No significant stenoses. Negative for proximal vascular occlusion. Congenital variations as discussed. MRA NECK: No significant stenoses. MRI BRAIN W/O Observed: 07/29/2017 Status: F Source: [facility] CONTRAST 8:50 AM HEALTH SYSTEM REPOSITORY Performed at [facility] APPROVED BY: Robb Mann MD EXAMINATION: MRI BRAIN W/O CONTRAST, MRA BRAIN W/O CONTRAST, MRA NECK W/O CONTRAST HISTORY: Headache and right-sided facial droop. Possible stroke. TECHNIQUE: Routine noncontrast MRI protocol including diffusion and gradient echo images. Intracranial and extracranial 3D [id number] MRA with 2D multiplanar and 3D maximum intensity projections calculated on the imaging workstation under physician supervision. MQ: MRBBWO_2 COMPARISON: Comparison made to noncontrast head CT dated 07/28/2017. RESULT: BRAIN: Acute Change: There is no evidence of restricted diffusion to suggest an acute infarct. Hemorrhage: No evidence of prior parenchymal hemorrhage on the gradient echo images. Mass Lesion/ Mass Effect: No evidence of an intracranial mass or extra-axial fluid collection. No significant mass effect. Chronic Change: Scattered punctate foci of increased T2 and FLAIR signal are noted in the supratentorial white matter which is a nonspecific finding, but likely represents minimal chronic microvascular ischemia. Parenchyma: No significant volume loss for age. The brain parenchyma is otherwise within normal limits of signal intensity and morphology. Ventricles: Normal caliber and morphology. Skull Base: Hypothalamic and pituitary region are grossly normal. Craniocervical junction is normal. No significant marrow replacement process. Vasculature: Major intracranial arterial structures, and dural venous sinuses show typical flow void, suggesting patency by spin echo criteria. Other: The visualized paranasal sinuses and mastoid air cells are clear. The orbits and extracranial soft tissues are unremarkable. INTRACRANIAL MRA: Intracranial ICAs within normal limits. Proximal MCA segments intact. Hypoplastic right A1 segment. HA vasculature otherwise within normal limits. There is a /near origin of the left posterior cerebral artery. Intracranial vertebral arteries, basilar artery, superior cerebellar arteries, and posterior cerebral arteries within normal limits. EXTRACRANIAL MRA: Carotid Stenosis: Right Common: No significant stenosis. Right Internal Plaque: No significant plaque formation. Right Internal Carotid Stenosis (% by NASCET Criteria): None measurable Left Common: No significant stenosis. Left Internal Carotid Plaque: No significant plaque formation. Left Internal Carotid Stenosis (% by NASCET Criteria): None measurable Cervical Vertebral Arteries: Patency: Bilateral Dominance: Left IMPRESSION: MRI BRAIN: No acute intracranial process. Negative for acute ischemia/infarct. Minimal presumed chronic microvascular ischemic change throughout the supratentorial white matter. MRA BRAIN: No significant stenoses. Negative for proximal vascular occlusion. Congenital variations as discussed. MRA NECK: No significant stenoses. MRA NECK W/O CONTRAST Observed: 07/29/2017 Status: F Source: [facility] 8:50 AM HEALTH SYSTEM REPOSITORY Performed at [facility] APPROVED BY: Robb Mann MD EXAMINATION: MRI BRAIN W/O CONTRAST, MRA BRAIN W/O CONTRAST, MRA NECK W/O CONTRAST HISTORY: Headache and right-sided facial droop. Possible stroke. TECHNIQUE: Routine noncontrast MRI protocol including diffusion and gradient echo images. Intracranial and extracranial 3D [id number] MRA with 2D multiplanar and 3D maximum intensity projections calculated on the imaging workstation under physician supervision. MQ: [id number]_2 COMPARISON: Comparison made to noncontrast head CT dated 07/28/2017. RESULT: BRAIN: Acute Change: There is no evidence of restricted diffusion to suggest an acute infarct. Hemorrhage: No evidence of prior parenchymal hemorrhage on the gradient echo images. Mass Lesion/ Mass Effect: No evidence of an intracranial mass or extra-axial fluid collection. No significant mass effect. Chronic Change: Scattered punctate foci of increased T2 and FLAIR signal are noted in the supratentorial white matter which is a nonspecific finding, but likely represents minimal chronic microvascular ischemia. Parenchyma: No significant volume loss for age. The brain parenchyma is otherwise within normal limits of signal intensity and morphology. Ventricles: Normal caliber and morphology. Skull Base: Hypothalamic and pituitary region are grossly normal. Craniocervical junction is normal. No significant marrow replacement process. Vasculature: Major intracranial arterial structures, and dural venous sinuses show typical flow void, suggesting patency by spin echo criteria. Other: The visualized paranasal sinuses and mastoid air cells are clear. The orbits and extracranial soft tissues are unremarkable. INTRACRANIAL MRA: Intracranial ICAs within normal limits. Proximal MCA segments intact. Hypoplastic right A1 segment. HA vasculature otherwise within normal limits. There is a /near origin of the left posterior cerebral artery. Intracranial vertebral arteries, basilar artery, superior cerebellar arteries, and posterior cerebral arteries within normal limits. EXTRACRANIAL MRA: Carotid Stenosis: Right Common: No significant stenosis. Right Internal Plaque: No significant plaque formation. Right Internal Carotid Stenosis (% by NASCET Criteria): None measurable Left Common: No significant stenosis. Left Internal Carotid Plaque: No significant plaque formation. Left Internal Carotid Stenosis (% by NASCET Criteria): None measurable Cervical Vertebral Arteries: Patency: Bilateral Dominance: Left IMPRESSION: MRI BRAIN: No acute intracranial process. Negative for acute ischemia/infarct. Minimal presumed chronic microvascular ischemic change throughout the supratentorial white matter. MRA BRAIN: No significant stenoses. Negative for proximal vascular occlusion. Congenital variations as discussed. MRA NECK: No significant stenoses. HEMOGRAM Collected: 07/29/2017 Status: F Source: [facility] 6:09 AM HEALTH SYSTEM REPOSITORY TYPE CODE TESTS RESULT OUT OF REFERENCE UNITS RANGE LAB WBC(LOINC) 4.23-9.07 thou/cmm WBC 7.17 LAB RBC(LOINC) 4.63-6.08 mil/cmm Low RBC 4.31 LAB HGB(LOINC) 13.7-17.5 g/dL Hgb 14.0 LAB HCT(LOINC) 40.1-51.0 % Low Hct 39.0 LAB MCV(LOINC) 83.2-95.6 fl MCV 90.5 LAB MCH(LOINC) 25.7-32.2 pg High MCH 32.5 LAB MCHC(LOINC) 32.3-36.5 % MCHC 35.9 LAB RDW(LOINC) 11.6-14.4 % RDW 13.4 LAB RDWSD(LOINC 36.1-45.8 fl ) RDW SD 44.2 LAB PLT(LOINC) 141-365 thou/cmm Low Platelet 108 LAB MPV(LOINC) 8.7-12.0 fl MPV 9.7 Performed By: #### CBC1 #### [place] [id number] LIPID PROFILE Collected: 07/29/2017 Status: F Source: [address] SYSTEM REPOSITORY TYPE CODE TESTS RESULT OUT OF REFERENCE UNITS RANGE LAB CHOL(LOINC 0-199 mg/dL ) Cholesterol Blood 110 Result Comment: <200 Desirable 200-240 Borderline >240 High LAB TRIG(LOINC) 0-149 mg/dL Triglyceride High Blood 242 Result Comment: < 200 Desirable Result invalid if not a fasting specimen. LAB HDL2(LOINC) >40 mg/dL HDL Cholesterol 22 LAB CHHDL(LOINC) 2.1-7.3 CHOL/HDL 5.0 LAB LDL(LOINC) mg/dL LDL (Calculated) 40 Result Comment: No CAD and with fewer than 2 CAD risk factors <160 mg/dL No CAD but with 2 or more CAD risk factors <130 mg/dL Definite CAD or other atherosclerotic disease <100 mg/dL LAB VLDL(LOINC) <50 Desired mg/dL VLDL Cholesterol 48 LAB LDHDL(LOINC) 1.1-4.8 LDL/HDL 1.8 Result Comment: LDL,VLDL,LDL/HDL, Invalid if Triglyceride >400 Performed By: #### LIPD2 #### [facility] [address] [place], [place] [address] BASIC PANEL Collected: 07/29/2017 Status: F Source: [place] [id number] [place] [address] SYSTEM REPOSITORY TYPE CODE TESTS RESULT OUT OF REFERENCE UNITS RANGE LAB NA(LOINC) 136-145 mEq/L Sodium Blood 136 LAB K(LOINC) 3.5-5.1 mEq/L Potassium Blood 4.0 LAB CL(LOINC) 98-107 mEq/L Chloride Blood 106 LAB CO2(LOINC) 21-32 mEq/L CO2 Blood 25 LAB GLU(LOINC) 70-99 mg/dL Glucose High Blood 181 LAB BUN(LOINC) 7-18 mg/dL BUN High Blood 23 LAB CREA(LOINC 0.67-1.17 mg/dL ) High Creatinine Blood 1.21 LAB CA(LOINC) 8.5-10.1 mg/dL Calcium Blood 8.6 LAB ANGAP(LOIN 8-16 C) Anion Gap 9 Performed By: #### P8 #### [place] [address] MDRD GFR Collected: 07/29/2017 Status: F Source: [facility] 6:09 AM HEALTH SYSTEM REPOSITORY TYPE CODE TESTS RESULT OUT OF RANGE REFERENCE UNITS LAB GFRFN(LOINC >60mL/min/1.73m ) 2 eGFR >60 Result Comment: If the patient is , multiply the result by 1.210. Performed By: #### GFR #### [place] [address] TSH, 3RD GENERATION Collected: 07/29/2017 Status: F Source: [facility] 6:09 AM HEALTH SYSTEM REPOSITORY TYPE CODE TESTS RESULT OUT OF REFERENCE UNITS RANGE LAB TSH3(LOINC 0.358-3.740 uIU/mL ) TSH, 3rd High generation 6.160 Performed By: #### TSH3 #### [place] [address] HGB A1C Collected: 07/29/2017 Status: F Source: [facility] 6:09 AM HEALTH SYSTEM REPOSITORY TYPE CODE TESTS RESULT OUT OF RANGE REFERENCE UNITS LAB A1C5(LOINC) 4.2-6.3 % High Hgb A1c 6.8 Result Comment: Method is National Glycohemoglobin Standardization Program (NGSP) compliant. LAB ESAVG(LOINC) mg/dl Est. Avg Glucose 148 Performed By: #### HA1C #### [place] [address] HISTORY PHYSICAL Observed: 07/29/2017 Status: COMPLETED Source: [facility] 3:35 AM CLINIC OTHER CAMPUS REPOSITORY HNO ID: [id number] Author: Nelli Ramos Service: Hospital Medicine Author Type: Nurse Practitioner Type: HANDP Filed: 07/29/2017 4:06 AM Note Text: Attestation signed by Jayy Mojica at 07/29/2017 4:54 AM ATTENDING ATTESTATION I personally saw and evaluated the patient, I have reviewed the medication orders and treatment plan, and I have recapitulated vickers elements of the history and physical examination. Discussed with Nurse Practitioner and agree with findings and plan as documented above. In short, this patient has Facial droop associated with an acute headache without any evidence of ICH. Symptoms persist at time of my exam. Significant physical exam findings: Right facial droop, with slight paresis of forehead muscles on right side as well. Slight right eye disconjugate gaze, no nystagmus. No overt visual field deficits. Principal Problem: Facial droop POA: Yes Active Problems: Obesity, Class II, BMI 35-39.9 POA: Yes DM (diabetes mellitus), type 2 (HCC) POA: Yes Ulcerative colitis, unspecified POA: Unknown Resolved Problems: * No resolved hospital problems. * Details: Plan MRI/A to evaluate for CVA. Suspicion for possible Poe's Palsy as well, but right eye blurring and possible disconjugate gaze is concerning. DEPARTMENT OF HOSPITAL MEDICINE HISTORY AND PHYSICAL EXAM SERVICE DATE: 07/29/2017 SERVICE TIME: 3:35 AM Primary Care Physician: Angelito Zuniga MD NIGHT AND WEEKEND COVERAGE: From 7am - 7pm, please call Sound Attending After 7pm, please call cross cover pager #[phone] Subjective CHIEF COMPLAINT: Right facial droop with drooling HPI: This is a 62 year old male with PMH of ulcerative colitis, DMII and obesity who presents with complaints of right facial droop, occipital MARTINS and drooling. Patient reports over the last few weeks he was having difficulty with drooling out of the right side of his mouth. Yesterday at 1100 AM patient noted he was biting his lip while trying to eat a sandwich. He reports numbness to the right side of his upper and lower lip. He ignored the symptoms and preceded to cut the grass. When he came in he his told him his face appeared to have a droop on the right side. Associated symptoms of intermittent occipital MARTINS on left described as throbbing in nature over the last 3 weeks. Also reports blurred vision to right eye wit trouble keeping eye closed. Denies any recent illness fever or chills. + intermittent lightheadedness upon standing. No CP, SOB, cough, abdominal pian, nausea, vomiting or diarrhea. No urinary symptoms, leg edema or calf pain. ED Work Up: CT head negative for acute process. Elements of Poe's palsy he is weak in the closure of the right eye but he is able to move the right forehead I discussed with the patient that it might be safest to do an observation admission and a little bit more of a stroke workup to make sure this is not something more than a peripheral neurologic problem we contacted Alice Tarango. patient was given 325 mg of aspirin orally PAST MEDICAL HISTORY Diagnosis Date - Chronic cholecystitis - DM (diabetes mellitus), type 2 (HCC) - Ulcerative colitis, unspecified PAST SURGICAL HISTORY Procedure Laterality Date - LAP CHOLECYSTECT/CHOLANGIOGRAPHY 03/09/07 - PAST SURGICAL HISTORY OF 5 knee surgeries bilateral - PAST SURGICAL HISTORY OF right shoulder and bilateral foot surgeries - TOTAL KNEE REPLACEMENT 01/19/2007 left knee FAMILY HISTORY Problem Relation Age of Onset - Colon Cancer Paternal Grandfather - Diabetes Mother Social History Substance Use Topics - Smoking status: Never Smoker - Smokeless tobacco: Never Used - Alcohol use No HOME MEDICATIONS: Prescriptions Prior to Admission: lisinopril (ZESTRIL, PRINIVIL) 5 mg tablet Take 5 mg by mouth once daily. Disp: Rfl: 07/28/2017 at Unknown time sitaGLIPtin-metFORMIN 50-1,000 mg per tablet Take 0.5 tablets by mouth twice daily. Disp: Rfl: 07/28/2017 at Unknown time atorvastatin (LIPITOR) 10 mg tablet Take 10 mg by mouth. Disp: Rfl: 07/28/2017 at Unknown time ALLOPURINOL 300 MG TAB Take one(1) tablet daily. Disp: Rfl: 0 07/28/2017 at Unknown time omeprazole(PRILOSEC 10 MG CAP) Take one(1) capsule daily. Disp: Rfl: 0 07/28/2017 at Unknown time balsalazide disodium(COLAZAL 750 MG CAP) Take one(1) tablet daily. Disp: Rfl: 0 07/28/2017 at Unknown time ALLERGIES No Known Allergies REVIEW OF SYSTEM: PAIN ASSESSMENT: Negative for pain, history of chronic pain, or current treatment for a chronic pain condition. GENERAL: No weight loss, malaise or fevers HEENT: + intermittent for headaches last 3 weeks, No changes in hearing. + blurred vision right eye today, no nose bleeds or other nasal problems NECK: Negative for lumps, goiter, pain and significant neck swelling RESPIRATORY: Negative for cough, hemoptysis, wheezing, COPD, dyspnea or shortness of breath CARDIOVASCULAR: Negative for chest pain, leg swelling, hypertension, CHF or palpitations GI: No nausea, vomiting, or diarrhea : No history of dysuria, frequency or incontinence MUSCULOSKELETAL: Negative for joint pain or swelling, back pain or muscle pain SKIN: Negative for lesions, rash, and itching ENDOCRINE: Negative for cold or heat intolerance, polyuria, polydipsia and goiter NEURO: No history of headaches, syncope, paralysis, seizures or tremors Objective PHYSICAL EXAM: BP 147/77 Pulse 66 Temp (Src) 98.1 (Oral) Resp 16 Ht 5' 10 (1.78m) Wt 255 lb 11.7 oz (116.0kg) SpO2 96% BMI 36.69 kg/(m2). GENERAL: Well appearing, alert, in no acute distress, well- hydrated, well nourished. SKIN: Skin color, texture, turgor normal, no suspicious rashes or lesions HEAD: Normocephalic, atraumatic EYES: Anicteric sclera. Pupils are equally round and reactive to light. Extraocular movements are intact. EARS: External ears normal, canals clear NOSE/SINUSES: Nares normal, septum midline, mucosa normal, no drainage or sinus tenderness OROPHARYNX: Lips, mucosa, and tongue normal, teeth and gums normal, oropharynx normal NECK: Supple, no adenopathy; thyroid symmetric, normal size, no bruits LUNGS: Clear to auscultation with no wheezes, rales or rhonchi. No retractions. HEART: RRR without murmur, gallop, or rubs. No ectopy ABDOMEN: Normal abdominal exam, Abdomen soft, non-tender. Bowel sounds normal. No masses, organomegaly EXTREMITIES: No deformities, edema, skin discoloration, clubbing or cyanosis. Good capillary refill. MUSCULOSKELETAL: No joint swelling, deformity, or tenderness PULSES: Normal at +2 NEURO: Alert and Oriented x 3. Speech clear. Follows all commands and moves all extremities x 4. Sensation grossly intact. Finger to nose and heel to johnson wnl bilaterally. NIHSS: 1(a). Mental Status - LOC 0 = Alert and Attentive 1(b). LOC Questions 0 = Correct age and month 1(c). LOC-Commands 0 = Both 2. Gaze 0 = Normal 3. Visual Velasco 0 = Full 4. Facial Weakness 1 = Minor, lower 5(a). Left Arm 0 = No drift 5(b). Right Arm 0 = No drift 6(a). Left Leg 0 = No drift 6(b). Right Leg 0 = No drift 7. Ataxia 0 = Absent 8. Sensory 0 = Normal 9. Aphasia 0 = None 10. Dysarthria 0 = Absent 11. Neglect 0 = None NIHSS Total (0-42): 1 DATA: Diagnostic tests reviewed for today's visit: Most recent labs and imaging results. 07/28/2017 10:14 PM - Radiology, [facility] In Results EXAMINATION: ?CT BRAIN ATTACK ? CLINICAL HISTORY: ?Focal neuro deficit, new, fixed or worsening, > 6 hrs, stroke suspected Brain attack. ?Right-sided facial droop ? TECHNIQUE: Routine CT of the brain without IV contrast. ? MQ: CTBA_4 ? CT Dose-Length Product (DLP): ? ? mGy*cm CT Dose Reduction Employed: ? ? ? COMPARISON: None. ? ? RESULT: ? ? Acute ischemic change: ? None. ?ASPECT Score = 10 ? Hemorrhage: ? No evidence of acute intracranial hemorrhage. ?ECASS Hemorrhagic Transformation Score = Not Applicable ? Mass Lesion / Mass Effect: ?There is no evidence of an intracranial mass or extraaxial fluid collection. ? No significant mass effect. ? ? Chronic change: ? ?None. ? Parenchyma: ?There is no significant volume loss. ?The brain parenchyma is otherwise within normal limits for age. ? Ventricles: ? ? Normal caliber and morphology. ? Other: ?The visualized calvarium, skull base, orbits and extracranial soft tissues ?are normal. ? ? IMPRESSION: ? ? Normal study ? ? 07/28/2017 10:27 PM - Radiology, [facility] In Results EXAMINATION: ?CHEST RADIOGRAPH (PORTABLE SINGLE VIEW AP) ? Exam Date/Time: ?07/28/2017 10:03 PM Clinical History: ?Focal neuro deficit, new, fixed or worsening, > 6 hrs, stroke suspected M: ?XCP_3 Comparison: ?None. ? ? RESULT: ? See impression. ? ? IMPRESSION: ? Lines, tubes, and devices: ?Overlying EKG leads. ? Lungs and pleura: ?No pneumothorax, pleural effusion or consolidative focal pneumonia. ?The lungs appear grossly clear bilaterally. ? ? Cardiomediastinal silhouette: ?Normal cardiomediastinal silhouette and pulmonary vasculature. ? ? Other: ?No acute osseous abnormality CBC: Recent Labs 07/28/172208 WBC 8.2 RBC 4.58* HB 14.7 HCT 41.9* PLT 131* MCV 91.5 MCH 32.1* MPV 9.3 RDW 13.6 Coags: Recent Labs 07/28/172208 INR 1.01 APTT 24.5 BMP: Recent Labs 07/28/172208 NA 137 K 3.8 CHLOR 104 CO2 25 BUN 24 CREAT 1.35* GLUC 179* CMP: Recent Labs 07/28/172208 NA 137 K 3.8 CHLOR 104 CO2 25 BUN 24 CREAT 1.35* GLUC 179* CA 9.0 ANION 12 Cardiac Enzymes: No results for input(s): CK, MB, CKMB, TROPT in the last 24 hours. Liver Function, Amylase, Lipase: No results for input(s): TPROT, ALB, ALT, AST, ALKPHOS, TBILI, AMYLASE, LIPASE, LACTATE in the last 24 hours. MG/PHOS: No results for input(s): MG, P in the last 24 hours. Renal Panel: Recent Labs 07/28/172208 CREAT 1.35* BUN 24 GLUC 179* CA 9.0 CHLOR 104 K 3.8 CO2 25 NA 137 Heme: No results for input(s): RETICP, ABSRETIC, LD, SIMON, FE, TIBC, TRANSFERSAT in the last 24 hours. Assessment/Plan Principle Problem: Right side facial droop with right eye blurred vision POA Yes Assessment and Plan: [place] Palsy vs stroke. CT head normal. Will check MRI/MRA, echo consult neurology. Monitor tele overnight. Steroids on hold until r/o stroke. Active Problems: TIFFANIE POA Yes Assessment and Plan: unknown baseline. Patient reports hx of TIFFANIE years ago with knee infection. Elevated creatinine likely 2/2 dehydration and BRIANA, allopurinol. Will hold these medications and add IVF overnight. Repeat BMP in am. DM (diabetes mellitus), type 2 (HCC) POA: Yes Assessment AND Plan: Controlled. Continue home medication and add accu checks ac/hs. Ulcerative colitis, unspecified POA: Unknown Assessment AND Plan: No exacerbation, continue Colazal Obesity, Class II, BMI 35-39.9 POA: Unknown Assessment AND Plan: healthy lifestyle discussed. Resolved Problems: * No resolved hospital problems. * VTE Prophylaxis: Lovenox 40mg Sub Q Daily Disposition: Home when medically stable Plan of care discussed with: Attending and Patient SIGNATURE: Nelli Ramos APRN.CNP PATIENT NAME: David Lew DATE: July 29, 2017 TIME: 3:35 AM PAGER/CONTACT #: [id number] ED NOTE Observed: 07/29/2017 Status: COMPLETED Source: [facility] 1:21 AM [facility] REPOSITORY HNO ID: [id number] Author: Evelyn MonteroRn) TOSHIA Oliveros Service: Emergency Medicine Author Type: Registered Nurse Type: ED Notes Filed: 07/29/2017 1:22 AM Note Text: [facility] here to transport. Report and paperwork provided. Pt is AANDO, wdp, resps even and unlabored, speech clear, agreeable to plan. ED NOTE Observed: 07/29/2017 Status: COMPLETED Source: [facility] 12:36 AM [facility] REPOSITORY HNO ID: [id number] Author: Romelia MonteroRn) TOSHIA William Service: Emergency Medicine Author Type: Registered Nurse Type: ED Notes Filed: 07/29/2017 12:36 AM Note Text: Patient ambulatory to with steady gait ED NOTE Observed: 07/29/2017 Status: COMPLETED Source: [facility] 12:23 AM [facility] REPOSITORY HNO ID: [id number] Author: Romelia MonteroRn) TOSHIA William Service: Emergency Medicine Author Type: Registered Nurse Type: ED Notes Filed: 07/29/2017 12:25 AM Note Text: [facility] notified - spoke with shahbaz -ETA 40min ED NOTE Observed: 07/29/2017 Status: COMPLETED Source: [facility] 12:23 AM [facility] REPOSITORY HNO ID: [id number] Author: Romelia MonteroRn) TOSHIA William Service: Emergency Medicine Author Type: Registered Nurse Type: ED Notes Filed: 07/29/2017 12:23 AM Note Text: Dr. Pineda accepts patient to [facility] to room 4239 ED NOTE Observed: 07/28/2017 Status: COMPLETED Source: [facility] 11:44 PM [facility] REPOSITORY HNO ID: [id number] Author: Evelyn MonteroRn) TOSHIA Oliveros Service: Emergency Medicine Author Type: Registered Nurse Type: ED Notes Filed: 07/28/2017 11:44 PM Note Text: Call to [facility] transfer line, spoke to Jay. Pt info provided. Speaking with Dr Carolina for details. HEMOGRAM Collected: 07/28/2017 Status: F Source: [facility] 10:09 PM HEALTH SYSTEM REPOSITORY TYPE CODE TESTS RESULT OUT OF REFERENCE UNITS RANGE LAB LWBC(LOINC) 4.8-10.8 thou/cmm WBC 8.2 LAB LRBC(LOINC) 4.60-6.20 mil/cmm Low RBC 4.58 LAB LHGB(LOINC) 14.0-18.0 g/dL Hgb 14.7 LAB LHCT(LOINC) 42.0-52.0 % Low Hct 41.9 LAB LMCV(LOINC) 80.0-94.0 fl MCV 91.5 LAB LMCH(LOINC) 27.0-31.0 pg High MCH 32.1 LAB LMCHC(LOINC 32.0-36.0 % ) MCHC 35.1 LAB LRDW(LOINC) 11.5-15.9 % RDW 13.6 LAB LPLT(LOINC) 150-400 thou/cmm Low Platelet 131 LAB LMPV(LOINC) 7.1-10.5 fl MPV 9.3 Performed By: #### LCBC #### [facility] [address] [place] [address] ACTIVATED PTT Collected: 07/28/2017 Status: F Source: [facility] 10:09 PM HEALTH SYSTEM REPOSITORY TYPE CODE TESTS RESULT OUT OF REFERENCE UNITS RANGE LAB LAPTT(LOIN 23.0-32.4 sec C) Activated PTT 24.5 Result Comment: Note new reference range. Performed By: #### LAPTT #### [facility] [address] [place] [address] PROTIME Collected: 07/28/2017 Status: F Source: [facility] 10:09 PM HEALTH SYSTEM REPOSITORY TYPE CODE TESTS RESULT OUT OF REFERENCE UNITS RANGE LAB LPTI(LOINC 9.7-13.0 sec ) Prothrombin Time 10.5 Result Comment: Note new reference range. LAB LINR(LOINC) INR 1.01 Result Comment: Standard Therapy 2.0-3.0 High Dose 2.5-3.5 Performed By: #### LPT #### [facility] [address] [place] [address] BASIC PANEL Collected: 07/28/2017 Status: F Source: [facility] 10:09 PM HEALTH SYSTEM REPOSITORY TYPE CODE TESTS RESULT OUT OF REFERENCE UNITS RANGE LAB PRODUCTION CONTROL SCHEDULER(LOINC) 136-145 mEq/L Sodium Blood 137 LAB LK(LOINC) 3.5-5.1 mEq/L Potassium Blood 3.8 LAB LCL(LOINC) 98-107 mEq/L Chloride Blood 104 LAB LCO2(LOINC 21-32 mEq/L ) CO2 Blood 25 LAB LGLU(LOINC 70-99 mg/dL ) Glucose High Blood 179 LAB LBUN(LOINC 7-25 mg/dL ) BUN Blood 24 LAB LCREA(LOIN 0.67-1.17 mg/dL C) High Creatinine Blood 1.35 LAB LCA(LOINC) 8.5-10.1 mg/dL Calcium Blood 9.0 LAB LANGP(LOIN 8-20 C) Anion Gap 12 LAB LBNCR(LOIN 10-20 C) BUN/Creatinine 18 Ratio Performed By: #### LP8 #### [facility] [address] [id number] MDRD EGFR Collected: 07/28/2017 Status: F Source: [facility] 10:09 PM HEALTH SYSTEM REPOSITORY TYPE CODE TESTS RESULT OUT OF RANGE REFERENCE UNITS LAB LGFRF(LOINC >60mL/min/1.73m ) 2 eGFR 57.10 Result Comment: If the patient is , multiply the result by 1.210. Performed By: #### LGFR #### [facility] [address] [place], [place] [address] ED PROV NOTE Observed: 07/28/2017 Status: COMPLETED Source: [facility] 10:05 PM [facility] REPOSITORY HNO ID: [id number] Author: Angelito Carolina MD Service: Emergency Medicine Author Type: Physician Type: ED Provider Notes Filed: 07/29/2017 1:09 AM Note Text: ED Provider Note Patient Name: David Lew SERVICE DATE: 07/28/17 History Patient presents with: Facial Droop Headache David Lew is a 62 year old male with history of multiple chronic medical problems who presents with a occipital headache. Patient has not had similar episodes of headache in the past. - - Symptoms began 11 hours prior to arrival. Onset was sudden. - Severity: moderate - Timing: constant - Quality: numbness and weakness right lower face - Pain is exacerbated by nothing. - Pain is not exacerbated by movement. - Symptoms are associated with right lower facial weakness does not report any upper facial weakness or numbness. - Symptoms are not associated with blurry vision, dizziness/vertigo, double vision, fever and any other focal deficit. - Improved by nothing. - Not improved by rest and fluids Patient thought this might be from working too much in the heat this evening he's having trouble using the mouth he is biting his lip and he has headache so he came to the emergency department to be evaluated he has risk factors of hypertension and diabetes no personal history of stroke positive family history for stroke. PAST MEDICAL HISTORY Diagnosis Date - Chronic cholecystitis - Ulcerative colitis, unspecified PAST SURGICAL HISTORY Procedure Laterality Date - LAP CHOLECYSTECT/CHOLANGIOGRAPHY 03/09/07 - PAST SURGICAL HISTORY OF 5 knee surgeries bilateral - PAST SURGICAL HISTORY OF right shoulder and bilateral foot surgeries - TOTAL KNEE REPLACEMENT 01/19/2007 left knee FAMILY HISTORY Problem Relation Age of Onset - Colon Cancer Paternal Grandfather Social History Social History Main Topics - Smoking status: Never Smoker - Smokeless tobacco: Never Used - Alcohol use No - Drug use: No - Sexual activity: Not on file ALLERGIES No Known Allergies Review of Systems Constitutional: Negative for chills, fatigue and fever. HENT: Negative for congestion, drooling, facial swelling, sore throat, tinnitus and trouble swallowing. Eyes: Negative for pain and visual disturbance. Respiratory: Negative for cough and shortness of breath. Cardiovascular: Negative for chest pain, palpitations and leg swelling. Endocrine: Negative for polydipsia, polyphagia and polyuria. Musculoskeletal: Negative for back pain and neck pain. Skin: Negative for color change, pallor, rash and wound. Allergic/Immunologic: Negative for environmental allergies, food allergies and immunocompromised state. Neurological: Positive for weakness and headaches. Negative for dizziness, syncope and numbness. Psychiatric/Behavioral: Negative for confusion. The patient is not nervous/anxious. Physical Exam BP 150/82 Pulse 78 Temp 97.6 Resp 18 Ht 5' 10 (1.78m) Wt 250 lb (113.4kg) SpO2 98% BMI 35.87 kg/(m2). Physical Exam Constitutional: He is oriented to person, place, and time. He appears well-developed and well-nourished. No distress. HENT: Head: Normocephalic and atraumatic. Right Ear: External ear normal. Left Ear: External ear normal. Nose: Nose normal. Mouth/Throat: Oropharynx is clear and moist. Eyes: EOM are normal. Pupils are equal, round, and reactive to light. Right eye exhibits no discharge. Left eye exhibits no discharge. No scleral icterus. Neck: Normal range of motion. Neck supple. No tracheal deviation present. Cardiovascular: Normal rate, regular rhythm and normal heart sounds. No murmur heard. Pulmonary/Chest: Effort normal and breath sounds normal. No respiratory distress. Musculoskeletal: Normal range of motion. He exhibits no edema, tenderness or deformity. Neurological: He is alert and oriented to person, place, and time. No sensory deficit. He exhibits normal muscle tone. Coordination normal. right lower facial weakness midline tongue for head looks symmetric he can wrinkle his brow but he does have weakness with closing the right eye no cerebellar symptoms Skin: Skin is warm and dry. Capillary refill takes less than 2 seconds. No rash noted. He is not diaphoretic. No erythema. No pallor. Psychiatric: He has a normal mood and affect. His behavior is normal. Judgment and thought content normal. Nursing note and vitals reviewed. Diagnostic Testing ED Labs Ordered and Reviewed - No data to display Procedures Medical Decision Making MDM patient had a stroke workup done he has 62 he has positive risk factors and he is complaining of headache although his exam has elements of Poe's palsy he is weak in the closure of the right eye but he is able to move the right forehead I discussed with the patient that it might be safest to do an observation admission and a little bit more of a stroke workup to make sure this is not something more than a peripheral neurologic problem we contacted [facility] patient was given 325 mg of aspirin orally ED Course / Clinical Impression patient was accepted by the hospitalist at [facility] in transfer EKG interpreted by myself shows normal sinus rhythm without any acute ST elevation and T-wave inversion or ischemic change Plan SIGNATURE: MD Angelito Barnett MD 07/28/17 2227 Angelito Carolina MD 07/29/17 0108 Angelito Carolina MD 07/29/17 0109 ED NOTE Observed: 07/28/2017 Status: COMPLETED Source: [facility] 10:05 PM [facility] [place] REPOSITORY HNO ID: [id number] Author: Aracelis (Rn) TOSHIA Clark Service: Emergency Medicine Author Type: Registered Nurse Type: ED Notes Filed: 07/28/2017 10:15 PM Note Text: Patient returned to the Emergency Department. CHEST 1 VIEW Observed: 07/28/2017 Status: F Source: [facility] 10:03 PM HEALTH SYSTEM REPOSITORY Performed at [facility] APPROVED BY: ROYCE SAHNI MD EXAMINATION: CHEST RADIOGRAPH (PORTABLE SINGLE VIEW AP) Exam Date/Time: 07/28/2017 10:03 PM Clinical History: Focal neuro deficit, new, fixed or worsening, > 6 hrs, stroke suspected M: XCP_3 Comparison: None. RESULT: See impression. IMPRESSION: Lines, tubes, and devices: Overlying EKG leads. Lungs and pleura: No pneumothorax, pleural effusion or consolidative focal pneumonia. The lungs appear grossly clear bilaterally. Cardiomediastinal silhouette: Normal cardiomediastinal silhouette and pulmonary vasculature. Other: No acute osseous abnormality. CT BRAIN ATTACK Observed: 07/28/2017 Status: F Source: [facility] 10:00 PM HEALTH SYSTEM REPOSITORY Performed at [facility] APPROVED BY: RAUL DE PAZ MD EXAMINATION: CT BRAIN ATTACK CLINICAL HISTORY: Focal neuro deficit, new, fixed or worsening, > 6 hrs, stroke suspected Brain attack. Right-sided facial droop TECHNIQUE: Routine CT of the brain without IV contrast. MQ: CTBA_4 CT Dose-Length Product (DLP): mGy*cm CT Dose Reduction Employed: COMPARISON: None. RESULT: Acute ischemic change: None. ASPECT Score = 10 Hemorrhage: No evidence of acute intracranial hemorrhage. ECASS Hemorrhagic Transformation Score = Not Applicable Mass Lesion / Mass Effect: There is no evidence of an intracranial mass or extraaxial fluid collection. No significant mass effect. Chronic change: None. Parenchyma: There is no significant volume loss. The brain parenchyma is otherwise within normal limits for age. Ventricles: Normal caliber and morphology. Other: The visualized calvarium, skull base, orbits and extracranial soft tissues are normal. IMPRESSION: Normal study CRITICAL TEST/RESULTS: Notification initiated at 2211. Communicated with Dr. Angelito Carolina on 07/28/2017 at 2211 time. CR_1 ED NOTE Observed: 07/28/2017 Status: COMPLETED Source: [place] 9:52 PM [facility] [place] REPOSITORY HNO ID: [id number] Author: Aracelis Shahid) TOSHIA Clark Service: Emergency Medicine Author Type: Registered Nurse Type: ED Notes Filed: 07/28/2017 10:15 PM Note Text: Patient transported to CT with monitor, Nurse and O2. ED NOTE Observed: 07/28/2017 Status: COMPLETED Source: [place] 9:47 PM [facility] REPOSITORY HNO ID: [id number] Author: Aracelis Shahid) Amber, RN Service: Emergency Medicine Author Type: Registered Nurse Type: ED Notes Filed: 07/28/2017 9:47 PM Note Text: DR. Carolina at bedside to evaluate. ED NOTE Observed: 07/28/2017 Status: COMPLETED Source: [place] 9:46 PM [facility] [place] REPOSITORY HNO ID: [id number] Author: Aracelis Shahid) Amber, RN Service: Emergency Medicine Author Type: Registered Nurse Type: ED Notes Filed: 07/28/2017 9:46 PM Note Text: Patient's HOB elevated above 30 degrees ED NOTE Observed: 07/28/2017 Status: COMPLETED Source: [place] 9:45 PM [facility] REPOSITORY HNO ID: [id number] Author: Aracelis MonteroRn) Amber RN Service: Emergency Medicine Author Type: Registered Nurse Type: ED Notes Filed: 07/28/2017 9:45 PM Note Text: 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 ED NOTE Observed: 07/28/2017 Status: COMPLETED Source: [place] 9:42 PM [facility] REPOSITORY HNO ID: [id number] Author: Aracelis MonteroRn) Amber, RN Service: Emergency Medicine Author Type: Registered Nurse Type: ED Notes Filed: 07/28/2017 9:44 PM Note Text: Patient is alert, talkative, alert and oriented x3, no distress noted. States that he first noticed lip numbness on the right side about 1100 this morning while eating lunch. States he developed a MARTINS this evening. Patient's states that his lip drooping has increased throughout the day. Patient denies difficulty breathing, SOB, tongue swelling. CBC W/DIFF, AUTOMATED Collected: 03/30/2017 Status: F Source: [place] 9:31 AM [facility] REPOSITORY Order Comment: Order Date: 02/19/17 Order Info: [id number] - CBCD TYPE CODE TESTS RESULT OUT OF RANGE REFERENCE UNITS LAB L100.1000 4.4-11.0 K/mm3 Normal WBC 5.8 LAB L100.1200 4.6-6.2 M/mm3 Low RBC 4.47 LAB L100.1300 13.0-16.5 g/dl Normal HGB 14.5 LAB L100.1400 40-54 % Normal HCT 40.3 LAB L100.1500 80-94 fL Normal MCV 90.2 LAB L100.1600 27.0-32.0 pg High MCH 32.4 LAB L100.1700 32-36 g/gl Normal MCHC 36.0 LAB L100.1810 11.6-14.6 % Normal RDW CV 13.4 LAB L100.1820 35.1-43.9 fl Normal RDW SD 43.3 LAB L100.1900 150-450 K/mm3 Low PLT 123 LAB L100.2000 6.2-12.0 fl Normal MPV 9.5 LAB L100.2100 47-70 % Normal NEUT% 56.8 LAB L100.2200 19-41 % Normal LY% 24.3 LAB L100.2300 0-10 % High MONO% 10.5 LAB L100.2400 0-5 % High EO% 7.2 LAB L100.2500 0-1 % Normal BASO% 0.5 LAB L100.2550 0.0-0.9 % Normal IM GRAN % 0.700 Result Comment: IG% - Immature Granulocytes (promyelocytes, myelocytes and metamyelocytes) > 1% indicates that a LEFT SHIFT is Present. LAB L100.2620 2.0-7.7 X10 3/uL Normal Absolute Neut 3.3 LAB L100.2720 0.83-4.51 X10 3/ul Normal Absolute Lymph 1.41 Performed By: #### L100.0100, L500.4100 #### [facility] [address] [facility] [address] [place], [place], [id number] LIPID PROFILE Collected: 03/30/2017 Status: F Source: [place] 9:31 AM [facility] REPOSITORY Order Comment: Order Date: 02/19/17 Order Info: [id number] - BMP Order Info: [id number] - LIPID Order Info: 3084-1 - URIC TYPE CODE TESTS RESULT OUT OF RANGE REFERENCE UNITS LAB L501.4900 200 mg/dL Normal CHOL 93 Result Comment: <200 mg/dL Desirable 200-240 mg/dL Borderline >240 mg/dL High Risk LAB L501.5000 mg/dL Normal TRIG 132 Result Comment: The drugs N-Acetylcysteine and Metamizole may falsely depress this assay. Serum Triglycerides Reference Interval Normal <150 mg/dL Borderline high 150 - 199 mg/dL High 200 - 499 mg/dL Very High > or = 500 mg/dL LAB L501.6400 mg/dL Low HDL 26 Result Comment: The drugs N-Acetylcysteine and Metamizole may falsely depress this assay. Reference Range HDL <40 mg/dL Low HDL Cholesterol HDL >or= 60 mg/dL High HDL Cholesterol LAB L501.6500 0-130 mg/dL Normal LDL 41 LAB L501.6600 5-40 mg/dL Normal VLDL 26 Performed By: #### L100.0100, L500.4100 #### [facility] [address] [place], [address] HEMOGLOBIN A1C Collected: 03/30/2017 Status: F Source: [place] 9:31 AM [facility] REPOSITORY Order Comment: Order Date: 02/19/17 Order Info: [id number] - A1C TYPE CODE TESTS RESULT OUT OF RANGE REFERENCE UNITS LAB L501.9985 4.2-6.3 % Normal HGB A1C 5.6 Performed By: #### L501.9985, L500.2500 #### [facility] [address] [place], [address] BASIC METABOLIC Collected: 03/30/2017 Status: F Source: [place] PROFILE (BMP) 9:31 AM [facility] REPOSITORY Order Comment: Order Date: 02/19/17 Order Info: [id number] - BMP Order Info: [id number] - LIPID Order Info: 3084-1 - URIC TYPE CODE TESTS RESULT OUT OF RANGE REFERENCE UNITS LAB L501.0100 70-110 mg/dL High GLU 131 Result Comment: Fasting Glucose result greater than or equal to 126 mg/dL suggests DIABETES MELLITUS per A.D.A. criteria. LAB L501.1000 7-18 mg/dL Normal BUN 18 LAB L501.1100 0.70-1.30 mg/dL Normal CREAT,SERUM 1.19 Result Comment: The validity of the calculated GFR AND GFRAA in patients over 70 years has not been determined. Clinical correlation is essential. LAB L501.1110 >60 mL/min Normal EST GFR 66 Result Comment: Non- GFR Calc LAB L501.1115 >60 mL/min Normal EST GFR - AA 80 Result Comment: GFR Calc LAB L501.1300 10-20 RATIO Normal BUN/CRE 15.1 LAB L501.2200 8.5-10.1 mg/dL Low CA 8.4 LAB L501.5300 136-145 mmol/L NA Normal 140 LAB L501.5600 3.5-5.1 mmol/L K Normal 3.9 LAB L501.5900 98-107 mmol/L CL Normal 106 LAB L501.6100 21.0-32.0 mmol/L Normal CO2 23.0 LAB L501.6200 5-15 Normal GAP 11 Performed By: #### L501.9985, L500.2500 #### [facility] [address] [place], [address] URIC ACID Collected: 03/30/2017 Status: F Source: [place] 9:31 AM [facility] REPOSITORY Order Comment: Order Date: 02/19/17 Order Info: [id number] - BMP Order Info: [id number] - LIPID Order Info: [id number] - URIC TYPE CODE TESTS RESULT OUT OF RANGE REFERENCE UNITS LAB L501.1400 3.5-7.2 mg/dL Normal URIC 5.0 Result Comment: The drugs N-Acetylcysteine and Metamizole may falsely depress this assay. Performed By: #### L501.1400 #### [facility] [address] [place], [address] ALLERGIES ALLERGIES DATE TYPE / CODE NAME / CODE REACTION SEVERITY SOURCE 05/27/2015 Drug No Known Unknown [facility] Allergy/416 Allergies/Q36849 [facility] 094318(SNOM 0388(RXNORM) Repository ED CT) Drug NO KNOWN [facility] Class/03602 ALLERGIES Other [place] 1003(SNOMED Repository CT) NG/[id number] NO KNOWN [facility] 6([facility] CT) Repository ENCOUNTERS ENCOUNTERS ADMIT/DISCHARGE ACCOUNT NUMBER ADMITTING ENCOUNTER LOCATION SOURCE CLASS 03/22/2018 [id number] [facility] ding:MTLAB Repository 09/29/2017 [id number] [facility] ding:MTLAB Repository 07/29/2017/07/30/19 [id number] [facility], Ambulatory [address] Other [place] Repository 07/29/2017/07/30/19 [id number] [place], Inpatient [place] [facility] [address] [facility] MEDICAL Repository CENTERBuildi nRoom: 4239Bed: 03/30/2017 [id number] [facility] ding:MTLAB Repository PAYERS PAYERS ENCOUNTER GUARANTOR PAYER SUBSCRIBER SOURCE 03/22/2018 DAVID Casas Primary DAVID Casas [place] [id number] Insurance:BRITTANEY DUNLAP: Community [place] PPOPolicy [id number] [place] Number: Repository [id number]: [phone]) [id number] [phone] (HP) Date:[id number] [address], [place] [address]VJ: 03/22/2018 Secondary NOT GIVENUNK [place] Insurance:SELF PAY [facility] Number: Effective Repository Date:2018-03-22 09/29/2017 David L Primary David L [place] [id number] Insurance:ANTHEM CherryDOB: Community [place] MED[place]ARE PPOPolicy [id number] [place] Number: Repository [id number]: [phone]) [id number] [phone] (HP) Date:7017-85-28SQ [address], [place] [address]IF: 09/29/2017 Secondary NOT GIVENUNK [place] Insurance:SELF PAY [facility] Number: Effective Repository Date:2017-09-29 07/29/2017 DAVID L Primary DAVID L [facility] CHERRYDOB: Insurance:ANTHEM CHERRYDOB: Health System [id number] MEDIBLUE ACCESS [id number] [facility], [place] Number: [id number]: [phone]) [id number] [phone] (HP) Date: 03/30/2017 David L Primary David L [place] [id number] Insurance:ANTHEM CherryDOB: Community [place] MEDICARE PPOPolicy [id number] [place] Number: Repository [id number]: [phone]) [id number] [phone] (HP) Date:6048-40-74ED [address], [place] [address]GK: 03/30/2017 Secondary NOT GIVENUNK [place] Insurance:SELF PAY [facility] Number: Effective Repository Date:2017-03-30
== END ==
PROVIDERS: Family Provider Family Medicine; PCP Family Medicine; Referring Provider Family Medicine; Visit Provider Family Medicine
DX: E11.9 Type 2 diabetes mellitus without complications (principal)
CPT/HCPCS: 36415; 80048; 80061; 83036

== ENCOUNTER → 2018-07-15 07:44 | Outpatient (CLI) | payer MEDICARE, SELFPAY ==
[2018-07-15 10:08] LABS: Hemoglobin 14.4 g/dl (13.0-16.5); Mean Corp Hgb Conc 35.1 g/gl (32-36); Mean Corpuscular Hgb 31.9 pg (27.0-32.0); Mean Corpuscular Volume 90.9 fL (80-94); Mean Platelet Vol. 9.4 fl (6.2-12.0); Platelet Count 116 K/mm3 (150-450); RBC Distribution Width CV 13.7 % (11.6-14.6); RBC Distribution Width SD 44.4 fl (35.1-43.9); Red Blood Count 4.51 M/mm3 (4.6-6.2); White Blood Count 5.8 K/mm3 (4.4-11.0)
[2018-07-15 10:11] LABS: Scan Indicated on CBC? Y/N NO
[2018-07-15 10:18] LABS: Hemoglobin A1c 7.4 % (4.2-6.3)
[2018-07-15 10:40] LABS: ALB/GLOB Ratio 1.1 RATIO (0.9-2.4); AST(SGOT) 22 U/L (15-37); Alanine Aminotransfer ALT/SGPT 25 U/L (16-61); Albumin, Serum 3.8 g/dL (3.2-5.0); Alkaline Phosphatase 36 U/L (45-117); Anion Gap 10 (5-15); BUN 20 mg/dL (7-18); BUN/Creat Ratio 17.1 RATIO (10-20); Chloride 106 mmol/L (98-107); Cholesterol 101 mg/dL (200); Creatinine, Serum 1.17 mg/dL (0.70-1.30); EST Glomerular Filtration Rate 67 mL/min (>60); Est Glom Filt Rate - Afr Amer 81 mL/min (>60); Globulin 3.5 g/dL (2.2-4.2); Glucose 168 mg/dL (74-106); High Density Lipoprotein 26 mg/dL; PSA,Total - Annual Screen 1.09 ng/mL (0.00-4.00); Potassium 4.3 mmol/L (3.5-5.1); Protein, Total 7.3 g/dL (6.4-8.2); Sodium Level 141 mmol/L (136-145); Triglycerides 175 mg/dL; Very Low Density Lipoprotein 35 mg/dL (5-40)
== END ==
PROVIDERS: Family Provider Family Medicine; PCP Family Medicine; Referring Provider Family Medicine; Visit Provider Family Medicine
DX: R73.01 Impaired fasting glucose (principal); E78.00 Pure hypercholesterolemia, unspecified; Z12.5 Encounter for screening for malignant neoplasm of prostate
CPT/HCPCS: 36415; 80053; 80061; 83036; 84153; 85027; G0103

== ENCOUNTER → 2019-08-08 08:37 | Outpatient (CLI) | payer MEDICARE, SELFPAY ==
[2019-08-08 12:27] LABS: Hemoglobin A1c 7.7 % (3.8-5.6)
[2019-08-08 12:36] LABS: ALB/GLOB Ratio 1.2 RATIO (0.9-2.4); AST(SGOT) 24 U/L (15-37); Alanine Aminotransfer ALT/SGPT 30 U/L (16-61); Albumin, Serum 4.2 g/dL (3.2-5.0); Alkaline Phosphatase 43 U/L (45-117); Anion Gap 14 (5-15); BUN 18 mg/dL (7-18); BUN/Creat Ratio 11.9 RATIO (10-20); Calcium,Total 8.9 mg/dL (8.5-10.1); Chloride 104 mmol/L (98-107); Cholesterol 125 mg/dL (200); Creatinine, Serum 1.51 mg/dL (0.70-1.30); EST Glomerular Filtration Rate 50 mL/min (>60); Est Glom Filt Rate - Afr Amer 60 mL/min (>60); Globulin 3.6 g/dL (2.2-4.2); Glucose 245 mg/dL (74-106); High Density Lipoprotein 24 mg/dL; PSA,Total - Annual Screen 1.32 ng/mL (0.00-4.00); Potassium 3.8 mmol/L (3.5-5.1); Protein, Total 7.8 g/dL (6.4-8.2); Sodium Level 138 mmol/L (136-145); Triglycerides 354 mg/dL; Very Low Density Lipoprotein 71 mg/dL (5-40)
[2019-08-08 12:50] LABS: Microalbumin,Random Urine 77.6 mg/L (NO RANGE EST.); Microalbumin:Creatinine Ratio 43.1 mg/g CRE (<30 mg/g CRE)
== END ==
PROVIDERS: PCP Family Medicine; Referring Provider Family Medicine; Visit Provider Family Medicine
DX: E11.9 Type 2 diabetes mellitus without complications (principal); Z12.5 Encounter for screening for malignant neoplasm of prostate
CPT/HCPCS: 36415; 80053; 80061; 82043; 82570; 83036; 84153; G0103

== ENCOUNTER → 2019-09-15 08:52 | Outpatient (CLI) | payer MEDICARE, SELFPAY ==
--- NOTE | 2019-09-15 08:57 | VDLE_ITS ---
Reason For Study: Acute superficial venous thrombosis RIGHT GSV is normal. CFV is compressible, spontaneous, phasic, competent and demonstrates normal augmentation. FV is compressible, spontaneous, phasic, competent and demonstrates normal augmentation. POP V is compressible, spontaneous, phasic, competent and demonstrates normal augmentation. T/P Trunk is compressible. PTV is compressible. RT PerV is compressible. Heterogeneous area medial calf measuring 1.49 x 4.24 cm in short. Area is too large to measure in long. Area is nonvascular. Procedure Exam performed in department. The exam was abbreviated due to the COVID 19 protocol. The exam was diagnostic. A preliminary report was called and/or faxed to Dr. Glynn. Interpretation Summary Deep veins of the right lower extremity are patent and compressible segmentally. There is no evidence of right lower extremity deep vein thrombosis. Valvular competence appears intact within the proximal deep venous system on the right . The right great saphenous vein appears patent and compressible segmentally. A non-vascular, heterogeneous structure is noted in the right medial calf, with dimensions as documented above. This may represent a seroma or hematoma. Clinical correlation is advised. Ordering Physician: Angelito Glynn Performed By: Fritz Alford RVT
== END ==
PROVIDERS: PCP Family Medicine; Referring Provider Family Medicine; Visit Provider Family Medicine
DX: I82.811 Embolism and thrombosis of superficial veins of right lower extremity (principal)
CPT/HCPCS: 93971

== ENCOUNTER → 2019-10-07 14:29 | Outpatient (CLI) | payer MEDICARE, SELFPAY ==
--- NOTE | 2019-10-07 14:33 | VDLE_ITS ---
Reason For Study: Rt leg swelling RIGHT GSV is normal. CFV is compressible, spontaneous, phasic, competent and demonstrates normal augmentation. FV is compressible, spontaneous, phasic, competent and demonstrates normal augmentation. POP V is compressible, spontaneous, phasic, competent and demonstrates normal augmentation. T/P Trunk is compressible. PTV is compressible. RT PerV is compressible. Heterogeneous area medial calf measuring 2.43 x 2.36 cm in short. Area is too large to measure in long. Area is nonvascular. Procedure Exam performed in department. Compared to 09/15/2019. A preliminary report was called and/or faxed to Ren[facility]. Interpretation Summary Deep veins of the right lower extremity are patent and compressible segmentally. There is no evidence of right lower extremity deep vein thrombosis. Valvular competence appears intact within the proximal deep venous system on the right . The right great saphenous vein appears patent and compressible segmentally. A non-vascular, heterogeneous structure is noted in the right medial calf, with dimensions as documented above. This may represent a seroma or hematoma. Clinical correlation is advised. Ordering Physician: Angelito Glynn Referring Physician: Angelito Glynn Performed By: Mana Parks RVT
== END ==
PROVIDERS: PCP Family Medicine; Referring Provider Family Medicine; Visit Provider Family Medicine
DX: M79.89 Other specified soft tissue disorders (principal)
CPT/HCPCS: 93971

== ENCOUNTER → 2019-11-10 08:23 | Outpatient (CLI) | payer MEDICARE, SELFPAY ==
[2019-11-10 09:51] LABS: Absolute Lymphocyte Count 1.29 X10^3/uL (0.83-4.51); Absolute Neutrophil Count 3.9 X10^3/uL (2.0-7.7); Basophil# 0.05 X10^3/uL; Basophil% 0.8 % (0-1); Eosinophil# 0.72 X10^3/uL; Hematocrit 38.9 % (40-54); Hemoglobin 13.5 g/dL (13.0-16.5); Lymphocyte # 1.29 X10^3/ul (4.0); Lymphocyte % 19.8 % (19-41); Mean Corp Hgb Conc 34.7 g/dL (32-36); Mean Corpuscular Hgb 32.5 pg (27.0-32.0); Mean Corpuscular Volume 93.5 fL (80-94); Mean Platelet Vol. 9.8 fl (6.2-12.0); Monocyte# 0.54 X10^3/uL; Monocyte% 8.3 % (0-10); NRBC Flagged by Analyzer 0 % (0-5); Neutrophil # 3.89 X10^3/uL (2.7-7.7); Neutrophil % 59.5 % (47-70); Platelet Count 129 K/mm3 (150-450); RBC Distribution Width CV 13.2 % (11.6-14.6); RBC Distribution Width SD 44.6 fl (35.1-43.9); Red Blood Count 4.16 M/mm3 (4.6-6.2); White Blood Count 6.5 K/mm3 (4.4-11.0)
[2019-11-10 10:05] LABS: PTHIN 26.3 pg/mL (18.4-80.1)
[2019-11-10 10:06] LABS: ALB/GLOB Ratio 1.1 RATIO (0.9-2.4); AST(SGOT) 34 U/L (15-37); Alanine Aminotransfer ALT/SGPT 26 U/L (16-61); Albumin, Serum 3.7 g/dL (3.2-5.0); Alkaline Phosphatase 42 U/L (45-117); Anion Gap 3 (5-15); BUN 19 mg/dL (7-18); BUN/Creat Ratio 14.8 RATIO (10-20); Chloride 106 mmol/L (98-107); Cholesterol 104 mg/dL (200); Creatinine, Serum 1.28 mg/dL (0.70-1.30); EST Glomerular Filtration Rate 60 mL/min (>60); Est Glom Filt Rate - Afr Amer 73 mL/min (>60); Globulin 3.3 g/dL (2.2-4.2); Glucose 206 mg/dL (74-106); High Density Lipoprotein 24 mg/dL; Potassium 4.8 mmol/L (3.5-5.1); Sodium Level 139 mmol/L (136-145); Triglycerides 199 mg/dL; Very Low Density Lipoprotein 40 mg/dL (5-40)
[2019-11-10 10:12] LABS: Hemoglobin A1c 7.9 % (3.8-5.6)
[2019-11-10 10:14] LABS: Vitamin D,25 Hydroxy 25.1 ng/mL
[2019-11-10 10:26] LABS: Microalbumin,Random Urine < 5.0 mg/L (NO RANGE EST.)
== END ==
PROVIDERS: PCP Family Medicine; Referring Provider Family Medicine; Visit Provider Family Medicine
DX: R79.89 Other specified abnormal findings of blood chemistry (principal); E11.9 Type 2 diabetes mellitus without complications; E78.5 Hyperlipidemia, unspecified
CPT/HCPCS: 36415; 80053; 80061; 82043; 82306; 82570; 83036; 83970; 85025

== ENCOUNTER → 2019-11-17 09:56 | Outpatient (CLI) | payer MEDICARE, SELFPAY ==
--- NOTE | 2019-11-17 10:13 | VDLE_ITS ---
Reason For Study: Acute SVT RIGHT GSV is normal. CFV is compressible, spontaneous, phasic, competent and demonstrates normal augmentation. FV is compressible, spontaneous, phasic, competent and demonstrates normal augmentation. POP V is compressible, spontaneous, phasic, competent and demonstrates normal augmentation. T/P Trunk is compressible. PTV is compressible. RT PerV is compressible. Nonvascularized structure noted in the right popliteal fossa measuring approximently 5.67 x 1.84 cm. Heterogeneous area medial calf. Area is too large to measure. Area is nonvascular. Procedure Exam performed in department. A preliminary report was called and/or faxed to [facility]. Interpretation Summary Deep veins of the right lower extremity are patent and compressible segmentally. There is no evidence of right lower extremity deep vein thrombosis. Valvular competence appears intact within the proximal deep venous system on the right . The right great saphenous vein appears patent and compressible segmentally. A non-vascular, heterogeneous structure is noted in the right medial calf, which is too large to measure. This may represent a seroma or hematoma. A non-vascular structure is noted in the right popliteal space, measuring 5.67 cm x 1.84 cm. This may represent a popliteal cyst. Clinical correlation is advised. Ordering Physician: Angelito Glynn Referring Physician: Angelito Glynn Performed By: Mana Parks RVT and Student
== END ==
PROVIDERS: PCP Family Medicine; Referring Provider Family Medicine; Visit Provider Family Medicine
DX: I82.811 Embolism and thrombosis of superficial veins of right lower extremity (principal)
CPT/HCPCS: 93971

== ENCOUNTER → 2019-11-21 13:30 | Outpatient (CLI) | payer MEDICARE, SELFPAY ==
--- NOTE | 2019-11-21 13:32 | ART_ITS ---
Reason For Study: Decreased Pulses Procedure A bilateral lower extremity continuous wave Doppler with analog waveform analysis and ankle brachial indexes. Left Segmental Pressures Left brachial= 137mmHg. Left posterior tibial artery = 164mmHg. Left dorsalis pedis artery = >254mmHg. The left ankle waveforms are triphasic. Right Segmental Pressures Right brachial= 134mmHg. Right posterior tibial artery = >254mmHg. Right dorsalis pedis artery = >254mmHg. The right ankle waveforms are triphasic. Indices Rt DPA and [employer] are Non compressible. The right digital-brachial index is 0.45. The left ankle brachial index by the posterior tibial artery is 1.20. Lt DPA is Non compressible. The left digital- brachial index is 0.73. Interpretation Summary Triphasic Doppler waveforms are noted at ankle level bilaterally. Pulse-volume recordings appear satisfactory at ankle and digital levels bilaterally. The resting right ankle-brachial index could not be determined due to the non-compressibility of the vasculature at ankle level. The resting left ankle-brachial index is normal. The right digital-brachial index is moderately diminished. The left digital-brachial index is normal. There is evidence of arterial calcification at ankle level on the right. Arterial flow appears normal at ankle level bilaterally, and at digital level on the left. There appears to be moderate impairment of arterial flow at digital level on the right. Ordering Physician: Angelito Glynn Referring Physician: Angelito Glynn Performed By: Beatris Dillon RDCS/RVT
== END ==
PROVIDERS: PCP Family Medicine; Referring Provider Family Medicine; Visit Provider Family Medicine
DX: R09.89 Other specified symptoms and signs involving the circulatory and respiratory systems (principal)
CPT/HCPCS: 93922

== ENCOUNTER → 2020-01-20 09:32 | Outpatient (CLI) | payer MEDICARE, SELFPAY ==
[2020-01-20 12:46] LABS: Erythrocyte Sedimentation Rate 9 mm/hr (0-20)
[2020-01-20 12:49] LABS: ALB/GLOB Ratio 1.1 RATIO (0.9-2.4); AST(SGOT) 20 U/L (15-37); Absolute Lymphocyte Count 0.77 X10^3/uL (0.83-4.51); Absolute Neutrophil Count 4.7 X10^3/uL (2.0-7.7); Alanine Aminotransfer ALT/SGPT 23 U/L (16-61); Albumin, Serum 3.7 g/dL (3.2-5.0); Alkaline Phosphatase 40 U/L (45-117); Anion Gap 6 (5-15); BUN 14 mg/dL (7-18); BUN/Creat Ratio 10.9 RATIO (10-20); Basophil# 0.02 X10^3/uL; Basophil% 0.3 % (0-1); Calcium,Total 8.6 mg/dL (8.5-10.1); Chloride 104 mmol/L (98-107); Creatinine, Serum 1.29 mg/dL (0.70-1.30); EST Glomerular Filtration Rate 60 mL/min (>60); Eosinophil# 0.19 X10^3/uL; Est Glom Filt Rate - Afr Amer 72 mL/min (>60); Globulin 3.5 g/dL (2.2-4.2); Glucose 189 mg/dL (74-106); Hematocrit 41.5 % (40-54); Hemoglobin 14.2 g/dL (13.0-16.5); Lymphocyte # 0.77 X10^3/ul (4.0); Lymphocyte % 12.2 % (19-41); Mean Corp Hgb Conc 34.2 g/dL (32-36); Mean Corpuscular Hgb 31.7 pg (27.0-32.0); Mean Corpuscular Volume 92.6 fL (80-94); Mean Platelet Vol. 9.5 fl (6.2-12.0); Monocyte# 0.59 X10^3/uL; Monocyte% 9.4 % (0-10); NRBC Flagged by Analyzer 0 % (0-5); Neutrophil # 4.68 X10^3/uL (2.7-7.7); Neutrophil % 74.3 % (47-70); Platelet Count 124 K/mm3 (150-450); Potassium 3.9 mmol/L (3.5-5.1); Protein, Total 7.2 g/dL (6.4-8.2); RBC Distribution Width CV 13.4 % (11.6-14.6); RBC Distribution Width SD 45.2 fl (35.1-43.9); Red Blood Count 4.48 M/mm3 (4.6-6.2); Sodium Level 137 mmol/L (136-145); White Blood Count 6.3 K/mm3 (4.4-11.0)
== END ==
PROVIDERS: PCP Family Medicine; Visit Provider Family Medicine
DX: K51.90 Ulcerative colitis, unspecified, without complications (principal)
CPT/HCPCS: 36415; 80053; 85025; 85652; 86140

== ENCOUNTER → 2020-02-16 08:13 | Outpatient (CLI) | payer MEDICARE, SELFPAY ==
--- NOTE | 2020-02-16 08:15 | US_ITS ---
STUDY: THYROID ULTRASOUND REASON FOR EXAM: Male, 64 years old. BENIGN NEOPLASM TECHNIQUE: Ultrasound evaluation of the thyroid was performed with real-time and static oh-scale imaging. COMPARISON: None. FINDINGS: RIGHT LOBE: The right lobe of the thyroid gland is enlarged and measures 5.4 cm x 2.2 cm x 2.4 cm. There is a homogeneous echotexture. There is a 4 mm x 5 mm x 4 mm solid hypoechoic nodule in the midportion with evidence of intra nodule vascularity. LEFT LOBE: The left lobe of the thyroid gland is enlarged and measures 8.2 cm x 3.7 cm x 3.3 cm. There is a homogeneous echotexture. There is a dominant 3.4 cm x 3.1 cm x 2.7 cm complex solid and cystic nodule in the lower pole. Nodular vascularity is seen. There is also evidence of a 6 mm x 5 mm x 6 mm isoechoic nodule with a calcific rim in the midpole. ISTHMUS: The isthmus measures 3 mm. The regional lymph nodes are normal. US/Thyroid IMPRESSION: Enlarged thyroid more prominent on the left side with a dominant 3.4 sono by 3.1 sono by 2.7 cm complex nodule in the lower pole of the left lobe. Biopsy is recommended. Electronically Signed: Hemant Perdomo, at 10:45 EST , Service support ,
== END ==
PROVIDERS: PCP Family Medicine; Visit Provider Family Medicine
DX: D34 Benign neoplasm of thyroid gland (principal)
CPT/HCPCS: 76536

== ENCOUNTER → 2020-02-21 17:14 | Outpatient (CLI) | payer MEDICARE, SELFPAY ==
--- NOTE | 2020-02-21 17:19 | CT_ITS ---
STUDY: CT CHEST WITH CONTRAST REASON FOR EXAM: Male, 64 years old. Lung nodule nonsmoker RADIATION DOSAGE (If Supplied By Facility): CTDIvol = ( 16.69 ) mGy, DLP = ( 850.89 ) mGycm TECHNIQUE: Transaxial imaging was performed following intravenous administration of IV 100mL Isovue-300. Individualized dose optimization techniques were used for this CT. COMPARISON: None. FINDINGS: There is a left thyroidectomy lobe 2.5 cm nodule. There is a benign granuloma in the right lower lobe posterior basal segment with central dystrophic calcifications. There is right lower lobe superior segment posterior dependent minor ground glass opacities, likely atelectasis.. Pleural surfaces are intact. Central airways are patent. Mediastinal contents are normal. Cardiac chambers are normal in size and shape. Aorta and pulmonary artery are unremarkable. Coronary arteries are severely diseased. Osseous structures are unremarkable. Liver is fatty infiltrated. Adrenals are normal. CT/Chest WITH Contrast IMPRESSION: 1. Left thyroid hemilobe nodule, refer to ultrasonography for details. 2. Right lower lobe benign granuloma. This does not require any further imaging attention. 3. Severe coronary artery disease. 4. Hepatic steatosis. Electronically Signed: Valencia Alamo, at 18:41 EST Tel , Service support ,
== END ==
PROVIDERS: PCP Family Medicine; Referring Provider Family Medicine; Visit Provider Family Medicine
DX: R91.1 Solitary pulmonary nodule (principal)
CPT/HCPCS: 71260; Q9967

== ENCOUNTER → 2020-03-01 11:33 | Outpatient (CLI) | payer MEDICARE, SELFPAY ==
--- NOTE | 2020-03-01 07:55 | ASPSI_PTH ---
PATIENT: DAVID LEW LOC: [facility] U#:[id number] AGE/SX: 69/M ROOM: RE03/01/[address]: Dr. Osman Capellan MD : 1955 BED: DIS: SPEC #: [id number] RECD: 03/01/20 11:19 STATUS: [facility]EL[place] JHOANA #: [id number] TERENCE: 03/01/20 07:[address]: Osman Capellan DEPT: CYTOLOGY RECD BY: Luciana Oconnell ENTERED: 03/01/20 11:40 SP TYPE: ASP MARTIN BELL DR: Dr. Angelito Glynn MD Tissues: A - Thyroid gland, NOS B - Thyroid gland, NOS Procedures: Surgery Specimen Level IV Cytospin Fluid Cytology Other HEADER OPERATION: Left thyroid FNA PRE-OP DIAGNOSIS: Left thyroid nodule TISSUE SUBMITTED: A - FNA left thyroid fluid for cytology, B - FNA left thyroid slides x4 DIAGNOSIS CYTOLOGY A. Left thyroid nodule fluid, FNA (cytospin and cell block): Consistent with benign cyst contents. See comment. B. Left thyroid nodule, FNA (smears): Consistent with benign follicular nodule. Adequate for evaluation. LORETA:jose d 03/05/2020 COMMENT A. The specimen predominantly consists of macrophages. Correlation with clinical, clinical, radiologic findings and appropriate follow up are necessary. CYTOLOGY STUDY Slides are reviewed. CYTOLOGY GROSS A - Received is 10 ml of cloudy red fluid labeled with the patient's name and and designated per the requisition as left thyroid. Submitted for cytology preparation including cell block. B - Received are four smears labeled with the patient's name and designated per the requisition as left thyroid. Submitted for staining. / jose d 03/01/20 TC:5 CPT: 68988, 59420, 75751
== END ==
PROVIDERS: PCP Family Medicine; Referring Provider Surgery; Visit Provider Surgery
DX: E04.1 Nontoxic single thyroid nodule (principal)
CPT/HCPCS: 88108; 88161; 88305

== ENCOUNTER → 2020-03-21 10:05 | Outpatient (CLI) | payer MEDICARE, SELFPAY ==
[2020-03-21 08:30] VITALS: BMI 36.1
[2020-03-21 11:40] LABS: Absolute Lymphocyte Count 1.44 X10^3/uL (0.83-4.51); Absolute Neutrophil Count 3.2 X10^3/uL (2.0-7.7); Basophil# 0.05 X10^3/uL; Basophil% 0.9 % (0-1); Eosinophil# 0.66 X10^3/uL; Eosinophils% 11.3 % (0-5); Lymphocyte # 1.44 X10^3/ul (4.0); Lymphocyte % 24.6 % (19-41); Mean Corp Hgb Conc 34.2 g/dL (32-36); Mean Corpuscular Hgb 31.1 pg (27.0-32.0); Mean Corpuscular Volume 90.9 fL (80-94); Mean Platelet Vol. 9.4 fl (6.2-12.0); Monocyte# 0.49 X10^3/uL; Monocyte% 8.4 % (0-10); NRBC Flagged by Analyzer 0 % (0-5); Neutrophil # 3.19 X10^3/uL (2.7-7.7); Neutrophil % 54.3 % (47-70); Platelet Count 144 K/mm3 (150-450); RBC Distribution Width CV 14.3 % (11.6-14.6); RBC Distribution Width SD 47.4 fl (35.1-43.9); Red Blood Count 4.18 M/mm3 (4.6-6.2); White Blood Count 5.9 K/mm3 (4.4-11.0)
[2020-03-21 12:15] LABS: AST(SGOT) 21 U/L (15-37); Alanine Aminotransfer ALT/SGPT 24 U/L (16-61); Albumin, Serum 3.7 g/dL (3.2-5.0); Alkaline Phosphatase 46 U/L (45-117); Anion Gap 5 (5-15); BUN 12 mg/dL (7-18); BUN/Creat Ratio 9.8 RATIO (10-20); Bilirubin, Direct 0.38 mg/dL (0.00-0.30); Calcium,Total 8.7 mg/dL (8.5-10.1); Chloride 107 mmol/L (98-107); Cholesterol 99 mg/dL (200); Creatinine, Serum 1.22 mg/dL (0.70-1.30); EST Glomerular Filtration Rate 64 mL/min (>60); Est Glom Filt Rate - Afr Amer 77 mL/min (>60); Globulin 3.3 g/dL (2.2-4.2); Glucose 218 mg/dL (74-106); High Density Lipoprotein 25 mg/dL; Potassium 4.1 mmol/L (3.5-5.1); Sodium Level 140 mmol/L (136-145); Triglycerides 248 mg/dL; Very Low Density Lipoprotein 50 mg/dL (5-40)
== END ==
PROVIDERS: PCP Family Medicine; Visit Provider Internal Medicine Cardiovascular Disease
DX: R07.9 Chest pain, unspecified (principal); E78.5 Hyperlipidemia, unspecified; I25.10 Atherosclerotic heart disease of native coronary artery without angina pectoris
CPT/HCPCS: 36415; 80048; 80061; 80076; 85025

== ENCOUNTER → 2020-03-30 05:44 | Outpatient (CLI) | payer MEDICARE, SELFPAY ==
[2020-03-21 08:30] VITALS: BMI 36.1
--- NOTE | 2020-03-30 06:09 | ECHOD_ITS ---
Reason For Study: CAD/ASHD Procedure This was a 2D Doppler, Color Flow transthoracic echocardiogram. Exam performed in department. Left Ventricle Normal LV size. Left ventricular systolic function is normal. The estimated ejection fraction is 55 %. Normal diastology for age. No regional wall motion abnormalities noted. Right Ventricle Normal RV size. Normal systolic function. Atria Normal left atrium. Normal right atrium. Mitral Valve Normal mitral valve. Tricuspid Valve Normal tricuspid valve. Aortic Valve Normal aortic valve. Pulmonic Valve Normal pulmonic valve. Great Vessels Normal aortic root. The pulmonary artery is normal size. Normal inferior vena cava. Pericardium/Pleural No pericardial effusion. MMode/2D Measurements & Calculations LVIDd: 5.0 cm IVSd: 1.2 cm Ao root diam: 3.3 cm LVIDs: 3.1 cm LVPWd: 1.0 cm RVDd: 3.6 cm FS: 37.7 % LAV(MOD-bp): 58.5 ml LA A4 area: 19.6 cm2 LA dimension(2D): 4.6 cm LAV(MOD-bp) Indexed: 25.4 ml/m2 LAV(MOD-sp2): 58.8 ml LAV(MOD-sp4): 58.2 ml RA A4 area: 17.0 cm2 Time Measurements MV dec time: 0.20 sec Doppler Measurements & Calculations MV E max carmelo: 64.8 cm/sec Lat Peak E' Carmelo: 8.4 cm/sec Med Peak E' Carmelo: 5.9 cm/sec MV A max carmelo: 48.9 cm/sec E/E' lat: 7.7 E/E' med: 11.0 MV E/A: 1.3 Ao V2 max: 93.2 cm/sec LV V1 max: 64.6 cm/sec PA V2 max: 106.6 cm/sec Ao max P.5 mmHg LV V1 max P.7 mmHg Interpretation Summary Normal LV size. Left ventricular systolic function is normal. The estimated ejection fraction is 55 %. Normal diastology for age. Structurally normal valves. Ordering Physician: Kraig Brandon Referring Physician: Angelito Glynn Performed By: Treasure Perez, NIK, RVT
--- NOTE | 2020-03-30 17:32 | STRESSREP ---
Stress Test Report Exercise myocardial perfusion stress test. 64-year-old male with a history of hyperlipidemia, coronary calcification. Stress protocol: Resting KG demonstrates sinus bradycardia with a rate of 58 bpm normal intervals are noted resting blood pressure is 122/62 mmHg. The patient exercised according to regular Carlo protocol for a total duration of 6 minutes completing stage III of the Carlo protocol the maximum heart rate attained was 153 bpm which was 97% of maximum predicted heart rate the maximum workload was 7 metabolic equivalents. At rest there were no ST or T wave changes noted to suggest ischemia. During exercise occasional premature ventricular complexes were noted which were asymptomatic. At peak exercise approximately 0.[address] changes were noted in the inferolateral leads not diagnostic of ischemia. Mild chest pressure was noted. The peak blood pressure was 158/74 mmHg. During recovery T wave inversions were noted in the inferolateral leads. Myocardial perfusion protocol. 14.7 mCi of technetium 99m sestamibi was injected at rest. The patient exercised according to regular Carlo protocol for 6 minutes and at peak exercise 44.4 mCi of technetium 99m sestamibi was injected stress images were obtained stress and rest images were reconstructed and compared in the short axis vertical long horizontal long axis. Gated images were also obtained Perfusion SPECT analysis: Review of the images demonstrate normal perfusion noted in all areas of the myocardium except for the apex of the ventricle on the stress images which appear to be present on the resting images as well. The above is suggestive of her previous apical infarct. The rest of the copeland appear to be fairly well perfused. No obvious ischemia is noted. Gated SPECT analysis: The gated ejection fraction is 58%. Conclusion: Exercise myocardial perfusion stress test with evidence of apical infarct noted. Preserved ejection fraction. This represents an interval change from his last stress test as well as a reduction in exercise capacity.
== END ==
PROVIDERS: PCP Family Medicine; Referring Provider Internal Medicine Cardiovascular Disease; Visit Provider Internal Medicine Cardiovascular Disease
DX: R07.9 Chest pain, unspecified (principal); I25.10 Atherosclerotic heart disease of native coronary artery without angina pectoris
CPT/HCPCS: 78452; 93017; 93306; A9500; A4216

== ENCOUNTER 2020-04-09 09:39 | Day surgery (SDC) | payer MEDICARE, SELFPAY ==
[2020-03-21 08:30] VITALS: BMI 36.1
[2020-04-06 09:14] VITALS: BMI 36.1
[2020-04-09] VITALS (10 sets, daily range): BP systolic 125–137; BP diastolic 70–81; PULSE 57–76; RESP 16–18; TEMP 36.5–36.8; O2SAT 94–97
--- NOTE | 2020-04-09 06:00 | HP_ITS ---
HPI HPI History of Present Illness Details: Pleasant 64-year-old man with no previous cardiac history but a history of hyperlipidemia, obesity, type 2 diabetes mellitus, thyroid nodule who was noted to have coronary calcification noted on routine chest CT scan for evaluating a lung nodule. He is denied any chest pain or shortness of breath or paroxysmal nocturnal dyspnea or pedal edema he does have a family history of coronary artery disease. He did in 2013 undergo stress testing where he exercised to 10.1 metabolic equivalents with no evidence of ischemia. He was noted to have a mild cardiomyopathy at that time. He also has a mild thrombocytopenia. His EKG today demonstrates normal sinus rhythm with a rate of 72 bpm and no acute changes. His physical exam today is unremarkable. Intake Vital Signs 03/21/20 Height 5 ft 10 in 03/21/20 Weight: 252 lb 03/21/20 BMI 36.1 03/21/20 BP 132/80 H 03/21/20 Respiration 16 03/21/20 Pulse 70 03/21/20 Pulse Oximetry (%) 98 Intake Visit Reasons: PCP ref'd for coronary artery calcification Allergies No Known Allergies Allergy (Verified 03/21/20 08:21) Medications allopurinol 300 mg tablet 300 mg PO DAILY tab 03/01/20 [History Confirmed 03/21/20] balsalazide 750 mg capsule 2,250 mg PO BID cap 03/01/20 [History Confirmed 03/21/20] gabapentin 100 mg capsule 100 mg PO QHS 03/01/20 [History Confirmed 03/21/20] lisinopril 5 mg tablet 5 mg PO DAILY 03/01/20 [History Confirmed 03/21/20] omeprazole 20 mg capsule,delayed release 20 mg PO DAILY 03/01/20 [History Confirmed 03/21/20] sitagliptin 50 mg-metformin ER 1,000 mg tablet,extended release 24h mp 1 tab PO BID tab 03/01/20 [History Confirmed 03/21/20] sildenafil 50 mg tablet 50 mg PO DAILY PRN 03/20/20 [History Confirmed 03/21/20] atorvastatin 10 mg tablet 20 mg PO DAILY tab 03/21/20 [History Confirmed 03/21/20] Ejection fraction %: 45 to 49 PFSH Medical History Cardiomyopathy (Chronic) Coronary artery calcification seen on CT scan (Chronic) Hyperlipidemia (Chronic) Type 2 diabetes mellitus (Chronic) Thrombocytopenia (Chronic) Acute superficial venous thrombosis of right lower extremity (Chronic) Erectile dysfunction (Chronic) GERD (gastroesophageal reflux disease) (Chronic) Gout (Chronic) IBS (irritable bowel syndrome) (Chronic) Obesity (Chronic) Pulmonary nodule (Chronic) Restless leg syndrome (Chronic) Thyroid nodule (Chronic) Ulcerative colitis (Chronic) Surgical History History of bilateral knee replacement (Resolved) History of cataract extraction (Resolved) History of cholecystectomy (Resolved) History of revision of total knee arthroplasty (Resolved) History of shoulder surgery (Resolved) History of surgery on wrist (Resolved) Family History Father Diabetes Heart disease CAD (coronary artery disease) CABG x 3 Grandfather Colon cancer Mother Alzheimer disease Social History (Updated 03/21/20 @ 09:[address] Kraig Brandon MD) Smoking Status: Never smoker ROS Const Const: Negative for fatigue, weakness, headache(s), frequent falls, difficulty sleeping or excessive sweating Eyes Eyes: Negative for loss of peripheral vision, transient loss of vision, blurry vision, double vision or tunnel vision ENT ENT: Negative for headache(s), dizziness, Nosebleed/epistaxis or balance problems Cardio Chest Pain: Yes (left chest ache after exertion x 1 year) Palpitations: No Edema: None Muscle aches with walking: None Resp Respiratory: Negative for SOB with activity, SOB at rest, SOB orthopnea\SOB lying down, Cough or paroxysmal nocturnal dyspnea GI GI: Negative nausea, vomiting, heartburn or black,tarry stools : Negative for hematuria Musc Musc: Negative for muscle aches/ myalgia, muscle weakness, joint pain or balance problems Skin Skin: Negative non-healing lesions, rash or unusual bruising Neuro Neuro: Negative for dizziness, lightheadedness, near syncope, syncope, orthostatic symptoms, frequent falls, headache(s), weakness, blurry vision, double vision or lack of coordination Manuel Hematologic/Lymphatic: Negative for easy bleeding or easy bruising Endo Endo: Negative for fatigue, excessive sweating or increased thirst/drinking Psych Psych: Negative for anxiety or depression Allergy Allergy/Immunology: Negative for hives, Negative for rash Cardiology Exam Const Appearance: cooperative, healthy appearing, no acute distress, well developed and well groomed Nutritional Appearance: average body habitus and well nourished Orientation: alert, awake and oriented x3 Head Head: normal to inspection, normocephalic and atraumatic Ears: hearing grossly normal bilaterally and external ears normal Nose: external nose normal, nares normal, nasal mucous membranes and turbinates normal, septum normal, no nasal discharge Face and Sinus: face symmetric Mouth: oral mucosae normal, tongue normal, oropharynx normal and moist mucous membranes Teeth and gingiva: dentition normal Throat: posterior oropharynx normal, tonsils normal and uvula midline Eyes General: appearance normal, both eyes and all related structures Eyelids: eyelids normal Conjunctivae: conjunctivae normal Pupils: PERRL, normal by confrontation and accommodation normal EOM: EOM intact bilaterally Neck Neck: normal visual inspection, trachea midline and no JVD JVD: +5 Carotids: normal carotid upstroke and bounding pulses Chest Chest inspection: normal inspection of the chest, symmetric chest movement and normal respiratory effort Auscultation: Bilateral: Clear to Auscultation Cardio Palpation: normal PMI Rate: regular rate Rhythm: regular rhythm Heart sounds: S1 normal, S2 normal and normal, physiologic split S2; negative rub, gallop or murmur GI GI: normal to inspection, soft, no hepatosplenomegaly and bowel sounds present Neuro General: alert, awake, oriented x3, gait normal, moves all extremities and no focal sensory deficit Skin Skin: no rashes or lesions noted Extremities Pulses: Normal: Right Femoral Pulse, Left Femoral Pulse, Right Dorsalis Pedis Pulse, Left Dorsalis Pedis Pulse, Right Posterior Tibial Pulse, Left Posterior Tibial Pulse, Right Radial Pulse, Left Radial Pulse Lower Extremity Edema: None: Bilateral Musculoskel Musculoskeletal: No joint tenderness Psych Psychological: normal affect Assessment & Plan 1. Coronary artery calcification seen on CT scan I25.10 Plan He does have significant coronary calcification noted on the chest CT. Although he has not had a coronary calcium score it appears that the score would have been rather high. He does have a very low HDL as well which predisposes him to coronary disease. I would recommend at this time that we perform an exercise stress test to exclude any obvious or overt coronary artery disease. Depending on the findings further recommendations will be made. Orders Orders: 12 Lead EKG performed by [facility] Today Nuclear Stress Test - Treadmil Today Basic Metabolic Profile (BMP) Today Liver Profile Today 2. Hyperlipidemia E78.5 Plan He does have a history of hyperlipidemia with a low HDL. His LDL is excellent with a total cholesterol of 40 and total cholesterol 104. His HDL is 24. I would suggest that we increase his Lipitor to 20 mg a day. Orders Orders: 12 Lead EKG performed by [facility] Today Liver Profile Today 3. Cardiomyopathy I42.9 Plan He does have a mild cardiomyopathy and this will be reevaluated with an echocardiogram. His electrocardiogram here today demonstrates normal sinus rhythm with a rate of 72 bpm and no acute changes. Thank you for allowing me to participate in his care and depending on the findings of the above tests further recommendations will be made. 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
--- NOTE | 2020-04-09 12:09 | CL.D_ITS ---
Patient Name: DAVID LEW Study Date: 04/09/2020 Performing: Kraig Brandon MD Ht: 70.07 inches 178 cm : 1955 Wt: 251.33 lbs 114 kg Age: 64 Gender: male BSA: 2.3 PROCEDURE(S) PERFORMED KY90-PQJ/COR CLINICAL PROFILE AND INDICATIONS Indications: Suspected CAD Heart Failure: None Stress/Imaging Date: 03/30/2020tress Test with SPECT MPI: Indeterminant CAD Presentations: Stable angina. CONCLUSIONS Severe two-vessel disease involving the proximal to mid left anterior descending artery as well as hi gh-grade stenosis of the first obtuse marginal branch. RECOMMENDATIONS Referred for immediate PCI DESCRIPTION OF PROCEDURE The patient arrived to the procedure lab. The risks and benefits of the procedure as well as a full d escription of our services here and current unavailability of surgical backup were fully explained to the patient and/or their significant other prior to the catheterization. The Timeout was completed, verifying the correct patient and procedure. The patient's procedural site was prepped and draped in the usual fashion. Local anesthetic was given subcutaneously to right radial region with Lidocaine 2% . Using a modified Seldinger technique, arterial access was obtained via the right radial artery, a 6 Fr sheath was inserted. Right Coronary Artery selective angiography was then performed in multiple v iews using a 5 Fr. 4.0 [place] catheter. Left Coronary Artery selective angiography was performed in mu ltiple views using a 5 Fr. 4.0 [place] catheter. CORONARY ANGIOGRAPHY DOMINANCE: Right Dominant LEFT HEART ASSESSMENT Left Ventricular Ejection Fraction: by Echo 55 % Normal LV wall motion Normal Left Ventricular systolic function LEFT MAIN: Mild calcification, No significant disease noted LEFT ANTERIOR DESCENDING ARTERY: Mild luminal irregularities PROX LAD: 90 long % Stenosis CIRCUMFLEX ARTERY: OM 1: Ostial - 80 % Stenosis RIGHT CORONARY ARTERY: Mild luminal irregularities less than 30% COMPLICATIONS PROCEDURE MEDICATIONS Versed 1 mg IV Fentanyl 50 mcg IV Versed 1 mg IV Fentanyl 25 mcg IV Versed 1 mg IV Fentanyl 25 mcg IV Oxygen: 2 L/min via nasal cannula Heparin diluted in 23cc Heparinized saline. Patient given 10cc IA of this solution. 04/09/2020 11:31:4 5 Heparin diluted in 23cc Heparinized saline. Patient given 10cc IA of this solution. 04/09/2020 11:31:4 5 Heparin 7000 unit(s) IV 04/09/2020 12:03:08 Verapamil 2.5mg, Ntg 100mcgs, 2000 units of Heparin diluted in 23cc Heparinized saline. Patient give n 10cc IA of this solution. 04/09/2020 11:31:45 SUMMARY OF HEMODYNAMIC DATA Time AIR REST ECG 10:03:47 AO 119/77 (96) SA 11:36:18 AO 138/71 (94) 11:49:26 Signed By Kraig Brandon MD On 04/09/2020 12:08:39 PM Kraig Brandon MD
--- NOTE | 2020-04-09 13:10 | CL.I_ITS ---
Patient Name: DAVID LEW Study Date: 04/09/2020 Performing: Jl Jarrell MD Ht: 70 inches 178 cm : 1955 Wt: 251.7 lbs 114 kg Age: 64 Gender: male BSA: 2.3 PROCEDURE(S) PERFORMED [id number] W OR WO PTCA, SINGLE CORONARY ARTERY [id number] W OR WO PTCA, SINGLE CORONARY ARTERY CLINICAL PROFILE AND CO-MORBIDITIES Indications: Suspected CAD Heart Failure: None Stress/Imaging Date: 03/30/2020 Stress Test with SPECT MPI: Indeterminant CAD Presentations: Stable angina. CONCLUSIONS Successful PCI of mid LAD and ostial OM1 with MARTINEZ RECOMMENDATIONS RICKI Arnold for at least 12 months Follow up with Dr. Brandon DESCRIPTION OF PROCEDURE The patient arrived to the procedure lab. The risks and benefits of the procedure as well as a full d escription of our services here and current unavailability of surgical backup were fully explained to the patient and/or their significant other prior to the catheterization. The Timeout was completed, verifying the correct patient and procedure. The patient's procedural site was prepped and draped in the usual fashion. Local anesthetic was given subcutaneously to right radial region with Lidocaine 2% Using a modified Seldinger technique,arterial access was obtained via the right radial artery, a 6Fr sheath was inserted. Right Coronary Artery selective angiography was then performed in multiple view s using a 5 Fr. 4.0 [place] catheter. Left Coronary Artery selective angiography was performed in multi ple views using a 5 Fr. 4.0 [place] catheter.The images were reviewed and options discussed. A decision was then made to proceed with an Intervention, IVUS or other adjunct procedure. XB 3.0 Guide catheter was inserted and engaged into the LCA. BMW Guide wire was advanced to the L AD. Emerge 2.50x12 Balloon catheter was inserted. PTCA balloon inflated at 10 atms for 22 secs. Angio gram performed post balloon dilatation. Synergy 3.00x16 Drug Eluting stent was inserted. Angiogram pe rformed post stent deployment. NC Euphora 3.00x12 Balloon catheter was inserted. Angiogram performed post balloon dilatation. Emerge 2.50x12 Balloon catheter was inserted. PTCA balloon inflated at 10 at ms for 25 secs. Angiogram performed post balloon dilatation. Synergy 2.50x12 Drug Eluting stent was i nserted. Angiogram performed post stent deployment. The arterial sheath was pulled and a TR Band wa s applied for hemostasis w/ 11ml air INTERVENTION INFORMATION LESION SITE: LAD (Mid) Lesion Complexity: High/C, chronic total occlusion: No, lesion at bifurcation: No, thrombus present: No, lesion length: 12 mm, culprit lesion: Yes, Previously treated lesion: No Pre Stenosis: 90 % Pre intervention LASHONDA flow: 3 PROCEDURE: Drug Eluting Stent with pre and post dilatation Post Stenosis: 0 % Post intervention LASHONDA flow: 3 Lesion Devices: Brown .014 BMW [place] Straight 190cm Cardinal 6 Fr XB3.0 100cm Guide Catheter Michel Sci EMERGE MR 2.50x12 BALLOON Michel Sci Synergy MR MARTINEZ 3.00x16 Medtronic NC EUPHORA RX 3.0x12 BALLOON LESION SITE: 1st OM (Ostial) Lesion Complexity: High/C, chronic total occlusion: No, lesion at bifurcation: Yes, thrombus present: No, lesion length: 11 mm, culprit lesion: Yes, Previously treated lesion: No Pre Stenosis: 80 % Pre intervention LASHONDA flow: 3 PROCEDURE: Drug Eluting Stent with pre dilatation. Post Stenosis: 0 % Post intervention LASHONDA flow: 3 Lesion Devices: Brown .014 BMW [place] Straight 190cm Cardinal 6 Fr XB3.0 100cm Guide Catheter Michel Sci EMERGE MR 2.50x12 BALLOON Michel Sci Synergy MR MARTINEZ 2.50x12 COMPLICATIONS No Complications PROCEDURE MEDICATIONS Versed 1 mg IV Fentanyl 50 mcg IV Versed 1 mg IV Fentanyl 25 mcg IV Versed 1 mg IV Fentanyl 25 mcg IV Fentanyl 25 mcg IV Oxygen: 2 L/min via nasal cannula Brilinta 180 mg PO @ 04/09/2020 12:50:12 Heparin diluted in 23cc Heparinized saline. Patient given 10cc IA of this solution. 04/09/2020 11:31:4 5 Heparin diluted in 23cc Heparinized saline. Patient given 10cc IA of this solution. 04/09/2020 11:31:4 5 Heparin 7000 unit(s) IV 04/09/2020 12:03:08 Verapamil 2.5mg, Ntg 100mcgs, 2000 units of Heparin diluted in 23cc Heparinized saline. Patient give n 10cc IA of this solution. 04/09/2020 11:31:45 SUMMARY OF HEMODYNAMIC DATA Time AIR REST ECG 10:03:47 AO 119/77 (96) SA 11:36:18 AO 138/71 (94) 11:49:26 Signed By Jl Jarrell MD On 04/09/2020 13:09:45 Jl Jarrell MD
--- NOTE | 2020-04-09 13:15 | EKG12_ITS ---
Test Reason : POST STENT Blood Pressure : / mmHG Vent. Rate : 057 BPM Atrial Rate : 057 BPM P-R Int : 192 ms QRS Dur : 084 ms QT Int : 450 ms P-R-T Axes : 036 -18 028 degrees QTc Int : 438 ms Sinus bradycardia Otherwise normal ECG When compared with ECG of 09-JAN-2007 05:25, No significant change was found Confirmed by ALBA MCMAHON, KRAIG ([id number]), make up editor DEYA COOPER ([id number]) on 04/10/2020 8:38:28 AM Referred By: Kraig Brandon Confirmed By:KRAIG BRANDON MD
[2020-04-09] MEDS: 0.9% Normal Saline 1,000 ML 60 ML IV (13:51)
--- NOTE | 2020-04-09 14:10 | CRPHASE1 ---
Patient Communication PHII Cardiac Rehab Discussed with Patient:: Yes Guide to Cardiac Rehab Given to Patient:: Yes Cardiac Rehab Facility Choice List Given to Patient:: Yes Choice Program [facility] CR PHII:: Communication Given to CR, Refer to [facility] Disaster Recovery Coordinator:: Deneen Jarrell Phase II Cardiac Rehab:: Yes Sessions:: 36 sessions - 3 days/wk, 12 weeks Cardiac Rehabilitation Info Cardiac Rehabilitation Program Information: Cardiac Rehabilitation is important for patients like you who are recovering from a heart problem. Cardiac rehabilitation programs are recognized as integral to the continued care of the patient with coronary heart disease. The cardiac rehabilitation program is designed to optimize a patient's physical, psychological, and social functioning. Health manager urgent care work in cardiac rehabilitation programs and assist you with getting the treatments you need to get stronger and healthier - like exercise, healthy eating habits, and medications. Cardiac rehabilitation has been show to help people with heart problems live longer and have better life enjoyment than people who do not go to cardiac rehabilitation. Please contact the Cardiac Rehabilitation Program at [facility] at in two weeks if you have not heard from them.
--- NOTE | 2020-04-09 14:11 | CRPH1.INSTRU ---
General Education CAD and cardiac anatomy and function:: Patient communicates acknowledgment Explanation of diagnoses and procedures:: Patient communicates acknowledgment Sign/Symptoms of AR:: Patient communicates acknowledgment Antiplatelet therapy: Patient communicates acknowledgment Proper use of NTG-SL: Patient communicates acknowledgment Emergency procedures and activation of EMS: Patient communicates acknowledgment Compliance of all prescribed medications: Patient communicates acknowledgment Dyslipidemia Patient Dyslipidemia Risk Factors Are:: Total Cholesterol Recommendations Include:: Lipid profile provided Dyslipidemia Response Code:: Patient communicates acknowledgment Overweight/Obesity Patient Overweight/Obesity Risk Factors Are:: Obesity - > or = 30 Recommendations Include:: Weight loss of 5-10%, Reduced calorie diet, Exercise 5-7 times/week Overweight/Obesity:: Patient communicates acknowledgment Diabetes Patient Diabetes Risk Factors Are:: Elevated blood sugars Date of HgbA1c:: 04/09/20 - 7.9 Recommendations Include:: Maintain fasting blood sugars 70-110 md/dL, Maintain HgbA1c of 6% or less, Monitor blood sugar as prescribed, Diabetic dietary guidelines, Decrease/maintain body weight Diabetes:: Patient communicates acknowledgment Metabolic Syndrome Patient Metabolic Syndrome Risk Factors Are [3 of 5]:: Fasting blood sugar > 100 mg/dL, Waist circumference > 35 [female] or 40 [male], High triglyceride >150, Low HDL <40 [male] or < 50 [female] Recommendations Include:: Reinforce compliance to risk factor modifications, Patient is diabetic, Encouraged follow-up with Primary Care Physician Metabolic Syndrome Response Code:: Patient communicates acknowledgment Sedentary Recommendations Include:: Aerobic exercise 5-7 times/week for 20-30 minutes continuously, Benefits of regular exercise, Discussed home walking program, Monitored Outpatient Cardiac Rehab Sedentary Response Code:: Patient communicates acknowledgment
[2020-04-09] MEDS: TICAGRELOR 90 MG TABLET PO (21:39)
[2020-04-09] MEDS: Gabapentin 100 MG Capsule PO (21:39)
[2020-04-09] MEDS: Atorvastatin Calcium 20 MG Tablet PO (21:39)
--- NOTE | 2020-04-09 22:59 | PCS.PANDOC ---
PANDEMIC DOCUMENTATION INITIATED: Date: 04/09/2020 Time: 1900
[2020-04-10 03:00] VITALS: PULSE 61
[2020-04-10 03:30] VITALS: BP 135/77; PULSE 70; RESP 18; TEMP 36.6; O2SAT 100
[2020-04-10 05:54] LABS: Hemoglobin 12.7 g/dL (13.0-16.5); Mean Corp Hgb Conc 35.3 g/dL (32-36); Mean Corpuscular Hgb 32.4 pg (27.0-32.0); Mean Corpuscular Volume 91.8 fL (80-94); Mean Platelet Vol. 9.2 fl (6.2-12.0); Platelet Count 119 K/mm3 (150-450); RBC Distribution Width CV 13.4 % (11.6-14.6); RBC Distribution Width SD 44.5 fl (35.1-43.9); Red Blood Count 3.92 M/mm3 (4.6-6.2); White Blood Count 5.7 K/mm3 (4.4-11.0)
[2020-04-10 06:52] LABS: ALB/GLOB Ratio 1.1 RATIO (0.9-2.4); AST(SGOT) 25 U/L (15-37); Alanine Aminotransfer ALT/SGPT 22 U/L (16-61); Albumin, Serum 3.3 g/dL (3.2-5.0); Alkaline Phosphatase 41 U/L (45-117); Anion Gap 5 (5-15); BUN 14 mg/dL (7-18); BUN/Creat Ratio 11.6 RATIO (10-20); Calcium,Total 8.2 mg/dL (8.5-10.1); Chloride 104 mmol/L (98-107); Creatinine, Serum 1.21 mg/dL (0.70-1.30); EST Glomerular Filtration Rate 64 mL/min (>60); Est Glom Filt Rate - Afr Amer 78 mL/min (>60); Estimated Creatinine Clearance 64.52 ml/min; Glucose 286 mg/dL (74-106); Potassium 3.9 mmol/L (3.5-5.1); Protein, Total 6.3 g/dL (6.4-8.2); Sodium Level 136 mmol/L (136-145)
[2020-04-10 07:00] VITALS: PULSE 58
[2020-04-10 07:12] VITALS: O2SAT 94
--- NOTE | 2020-04-10 08:36 | PCM.PN.CARD ---
Subjectve: Patient seen and evaluated. Appears to be doing well. No chest pain overnight. Objective: Vital Signs Temp Pulse Resp BP Pulse Ox 97.9 F 58 L 18 135/77 H 100 04/10/20 03:30 04/10/20 07:00 04/10/20 03:30 04/10/20 03:30 04/10/20 03:30 Oxygen Delivery Method Room Air Weight: 256 lb 6.362 oz Body Mass Index (BMI) 36.1 Intake and Output for Last 24 Hours 04/08/20 04/09/20 04/10/20 23:59 23:59 23:59 Intake Total 1289 / 1289 100 / 100 Balance 1289 / 1289 100 / 100 General: Awake, Alert, Oriented x 3 HEENT: PERRL, EOMI, Sclera Non Icteric Neck: Supple, Good ROM, No Lymph Node Enlargement Lungs: Clear to auscultation Cardiovascular: Regular Rhythm, Normal S1, Normal S2, No Murmurs, No Rubs, No Gallops 04/10/20 05:44: WBC 5.7, RBC 3.92 L, Hgb 12.7 L, Hct 36.0 L, MCV 91.8, MCH 32.4 H, MCHC 35.3, Plt Count 119 L, MPV 9.2 04/10/20 05:44: Sodium 136, Potassium 3.9, Chloride 104, Carbon Dioxide 27.0, Anion Gap 5, BUN 14, Creatinine 1.21, Est GFR (MDRD) Af Amer 78, Est GFR (MDRD) Non-Af 64, BUN/Creatinine Ratio 11.6, Glucose 286 H, Calcium 8.2 L, Total Bilirubin 1.70 H Rhythm: EKG: ECHO: Stress Test: Cardiac Cath: PCI: CT Surgery: Holter monitor: EPS: PPM: CXR: Chest CT Scan: Medical Necessity - Tobacco Use Smoking Status: Never smoker Assessment/Plan 1. Status post angioplasty and stenting of the left anterior descending artery as well as the first proximal obtuse marginal branch. Patient tolerated the procedure well. Will discharge today for outpatient follow-up and cardiac rehabilitation.
--- NOTE | 2020-04-10 08:40 | DCINST_ITS ---
Discharge Diet: No Restrictions - You may continue your normal diet. Lifting Restrictions: 10 pounds and also avoid any pushing or pulling for 3 days after your test. Additional Activity Instructions:: You must have someone drive you home. Do not drive until instructed by your doctor. You must have someone stay with you all night after your test. Rest in bed or on the couch until the next morning. Limit the number of times you go up and down stairs the day of your test. Apply pressure to the puncture site if you sneeze or cough. Call your doctor if your incision/area has: Increased Pain/ Swelling, Increased Redness, Foul Smelling Discharge, Swelling at the incision site Call your doctor if you observe: Fever of 101 or Higher Additional Dressing/Incision Instructions:: Keep the dressing (bandage) on until the next morning. You may then shower, but do not take a tub bath for 5 days after your test. It is normal to have some tenderness and discomfort at the puncture site. Sometimes bruising also occurs. However, if pain, numbness, or coldness occurs below the puncture site (in your leg, toes, arms or fingers) call your doctor at once. You may have a small, marble sized knot at the puncture site. This is normal. Do not rub it. It will go away in 4-6 weeks. Bleeding can occur from the area where the puncture was done. Blood may spurt or drip from the site. If blood spurts, apply pressure right away to stop bleeding and call 911. Although rare, bleeding into the tissue (hematoma) can also occur. If this happens, a large, firm area goose egg under the skin will appear. If any of these occur, lie down as flat as you can and have someone apply firm pressure to the cath site with a gauze pad or a clean washcloth for 10-15 minutes. Call 911 or go to the Emergency Department. Allergies/Adverse Reactions: Allergies No Known Allergies Allergy (Verified 04/06/20 09:19) Medications to take at Discharge allopurinol 300 mg tablet 300 mg PO DAILY tab 03/01/20 balsalazide 750 mg capsule 2,250 mg PO BID cap 03/01/20 gabapentin 100 mg capsule 100 mg PO QHS 03/01/20 lisinopril 5 mg tablet 5 mg PO DAILY 03/01/20 omeprazole 20 mg capsule,delayed release 20 mg PO DAILY 03/01/20 sitagliptin 50 mg-metformin ER 1,000 mg tablet,extended release 24h mp 1 tab PO BID tab 03/01/20 sildenafil 50 mg tablet 50 mg PO DAILY PRN 03/20/20 atorvastatin 20 mg tablet 20 mg PO QHS #90 tab 03/21/20 aspirin 81 mg tablet,delayed release 81 mg PO DAILY 04/02/20 Ticagrelor [Brilinta] 90 mg PO BID #60 tab 04/10/20 The following prescriptions were given: Ticagrelor [Brilinta] 90 mg PO BID #60 tab Transmission Status: Pending to [facility] Primary Care Physician: Angelito Glynn MD [Primary Care Provider] - Test Results: Test results from this visit will be discussed in further detail at your follow- up appointment, if applicable. Proposed Discharge Date: 04/10/20 Cardiac Rehabilitation Info Cardiac Rehabilitation Program Information: Cardiac Rehabilitation is important for patients like you who are recovering from a heart problem. Cardiac rehabilitation programs are recognized as integral to the continued care of the patient with coronary heart disease. The cardiac rehabilitation program is designed to optimize a patient's physical, psychological, and social functioning. Health long term acute care registered nurse work in cardiac rehabilitation programs and assist you with getting the treatments you need to get stronger and healthier - like exercise, healthy eating habits, and medications. Cardiac rehabilitation has been show to help people with heart problems live longer and have better life enjoyment than people who do not go to cardiac rehabilitation. Please contact the Cardiac Rehabilitation Program at [facility] at in two weeks if you have not heard from them.
[2020-04-10 09:15] VITALS: BP 136/75; PULSE 75; RESP 16; TEMP 36.6; O2SAT 98
[2020-04-10] MEDS: TICAGRELOR 90 MG TABLET PO (09:16)
[2020-04-10] MEDS: Aspirin E.C. 81 MG Tablet PO (09:16)
[2020-04-10] MEDS: Allopurinol 300 MG Tablet PO (09:16)
[2020-04-10] MEDS: Lisinopril 5 MG Tablet PO (09:17)
[2020-04-10] MEDS: Pantoprazole Sodium 20 MG Tablet PO (09:17)
--- NOTE | 2020-04-10 10:00 | EKG12_ITS ---
Test Reason : AM EKG Blood Pressure : / mmHG Vent. Rate : 063 BPM Atrial Rate : 063 BPM P-R Int : 190 ms QRS Dur : 084 ms QT Int : 422 ms P-R-T Axes : 042 -07 051 degrees QTc Int : 431 ms Normal sinus rhythm Low voltage QRS (Limb Leads) Borderline ECG Confirmed by BRIANNA MCMAHON, TONY ([id number]), editorial clerk LYLE LR ([id number]) on 04/11/2020 8:59:42 AM Referred By: Kraig Brandon Confirmed By:TONY REED MD
--- NOTE | 2020-04-10 10:20 | PHA.DC.MC ---
Pharmacy Service has performed discharge medication reconciliation and counseling for this patient. The patient was counseled on the following discharge medications and changes in medications for homegoing were reviewed. 1. BRILINTA The Reason for Use, instructions for use, and potential side effects were reviewed for all new medications. The patient's questions regarding all of their medications were answered. The patient was able to verbally demonstrate an understanding of their discharge medications. Home Medications allopurinol 300 mg tablet 300 mg PO DAILY tab 03/01/20 balsalazide 750 mg capsule 2,250 mg PO BID cap 03/01/20 gabapentin 100 mg capsule 100 mg PO QHS 03/01/20 lisinopril 5 mg tablet 5 mg PO DAILY 03/01/20 omeprazole 20 mg capsule,delayed release 20 mg PO DAILY 03/01/20 sitagliptin 50 mg-metformin ER 1,000 mg tablet,extended release 24h mp 1 tab PO BID tab 03/01/20 sildenafil 50 mg tablet 50 mg PO DAILY PRN 03/20/20 atorvastatin 20 mg tablet 20 mg PO QHS #90 tab 03/21/20 aspirin 81 mg tablet,delayed release 81 mg PO DAILY 04/02/20 Ticagrelor [Brilinta] 90 mg PO BID #60 tab 04/10/20 The patient's discharge medication list was reviewed for discrepancies and discrepancies were resolved.
== END 2020-04-10 08:40 | disposition home or self-care (01) ==
LOC: CLSP 09:40 → PCU 04-10 10:16
PROVIDERS: Specialist; PCP Family Medicine; Referring Provider Internal Medicine Cardiovascular Disease; Visit Provider Internal Medicine Cardiovascular Disease
DX: I25.10 Atherosclerotic heart disease of native coronary artery without angina pectoris (principal); I42.9 Cardiomyopathy, unspecified; D69.6 Thrombocytopenia, unspecified; E11.9 Type 2 diabetes mellitus without complications; E78.5 Hyperlipidemia, unspecified; K21.9 Gastro-esophageal reflux disease without esophagitis; Z79.84 Long term (current) use of oral hypoglycemic drugs; Z82.49 Family history of ischemic heart disease and other diseases of the circulatory system
CPT/HCPCS: 80053; 85027; 92928; 93005; 93454; 99152; 99153; J7030; J7040; Q9967; A4216; C1725; C1769; C1874; C1887; C1894; C9600; J1327

== ENCOUNTER → 2020-04-12 17:40 | Outpatient (CLI) | payer MEDICARE, SELFPAY ==
[2020-04-06 09:14] VITALS: BMI 36.1
== END ==
PROVIDERS: PCP Family Medicine; Visit Provider Family Medicine
DX: Z20.822 Contact with and (suspected) exposure to COVID-19 (principal)
CPT/HCPCS: 87635; U0005; U0003

== ENCOUNTER → 2020-04-20 07:57 | Outpatient (CLI) | payer MEDICARE, SELFPAY ==
[2020-04-06 09:14] VITALS: BMI 36.1
--- NOTE | 2020-04-20 08:02 | PCM.CR.ITP ---
Diagnosis - General Information Admitting Diagnosis: PCI w/coronary stenting Personal Learning Style:: Audio/Visual, Written Barriers to Learning: Vision Impairment Stage of change r/t lifestyle modifications:: Action Gave educational material for:: Treating Heart Disease, Emotions & Heart Disease, Stress Management & Relaxation, Sleep Disorders & Heart Disease, How The Heart Works, What it means to have Heart Disease, How Coronary Artery Disease is Diagnosed, Heart Procedures, What Heart Medications Do, Risk Factors & Modifications, Living an Active Life, Nutrition - Education/Goals Individual Counseling: Initial Assessment: Abnormal Cholesterol Levels, High Blood Pressure, Overweight/Obesity, Diabetes, Metabolic Syndrome (as evidenced by 3 of 5 A-E below), A. Fasting Blood Sugar >100 - 218 hBA1c 7.9, B. Waist Circumference >35/Females >40/Males, C. High Triglycerides >150 - 248, Hypertension - 132/80 Cardiac Rehabilitation Goals: 1. Maintain the individual as the primary focus of care. 2. To improve the patient's quality of life. 3. Identification of cardiac risk factors and provide cardiac risk factor management. 4. Enhance the psychosocial status of the patient. 5. Reconditioning enough to allow the patient to resume customary activities. 6. Control symptoms of cardiac disease Personal Goals: Initial Assessment: Improve energy level, Improve muscle strength and endurance, Improve diet and eating habits (eat healthier), Control risk factors (learn risk factor modification) Scale for measuring improvement of personal goals: Enter appropriate number in Comments. 2 = Unchanged. 3 = Slightly Better. 4 = Moderate Improvement. 5 = Met my Goal - Diagnosis & Disease Process Outcomes/Goals: Pt IDs own risk factors & lifestyle modifications by Session 10, Verbalizes symptoms of angina & response by session 3., Pt independently manages Plan/Interventions: Assist Pt to ID & engage in lifestyle modification to reduce CVD risk, Instruct on individual risk factors, Review symptoms of angina & emergency actions, Review secondary diagnosis & identify educational needs. - Safety Referral to Physical Therapy: No Referral to [facility] Case Management: No Fall Risk Assessed:: Yes Assistive Devices:: None Exercise - Initial Assessment - Visit Date of Eval: 04/20/20 Session #:: 0 - pre-cardiac rehab Mets: Pre-: >7 METS for 30 minutes by discharge - may be limited due to bilateral knee replacements. - Physician Prescribed Exercise Modalities: Treadmill, Rower, Airdyne, NuStep Frequency: 3x/week for 12 weeks [36 sessions] Intensity: 60-80% of age predicted maximum heart rate reserve Current METSs:: 3.5 Target Heart Rate:: 102-131 Resting Blood Pressure: 132/80 EKG Type: Sinus Rhythm - Outcomes & Goals Goals:: Verbalizes understanding of THR, RPE & goal METS by session 6, Documents in home exercise log/reports 30 min aerobic 5 day/wk by DC, Demonstrates accurate pulse taking by DC - Intervention & Plan Exercise Program Goals: Instruct on personal THR & RPE, Instruct on MET level & personal MET goal, Show patient to take own pulse /validate performance until accurate, Instruct on home exercise - Physical Activity Home Exercise Physical Activity - Home Exercise: Safe Exercise, Warm-up, Self-monitoring, Cool-Down, Home Exercise > 30 min Daily, Sitting Time <3 hours/daily - Outcomes & Goals Outcomes/Goals: Demonstrates correct Warm-up/exercise Cool-Down (S3) if = 2.5 METs, Verbalizes symptoms of exercise intolerance by Session 3 (S3), Demonstrate safe equipment use (S3) & follows exercise prescrition (6) - Intervention & Plan Plan/Intervention: Instruct warm-up & cool-down if exercising at > 2 METs, Instruct on symptoms of exercise intolerance & actions to take, Instruct & monitor on saf, Assess intial functional capacity & safety risk Nutrition - Initial Assessment - Program Goals Nutrition Program Goals: LDL <100 optimal. 100 - 129 Near optimal. 130 - 159 Borderline High. 160 - 189 High. Total Cholesterol <200 desirable. 200 - 239 Borderline High. >/= 240 High. HDL < 40 Low >/=60 High. Triglycerides <150 desirable. <199 optimal. VlDL 5 - 40. HgbA1C <7%. BMI <25 Patient has diagnosis of Hyperlipidemia (ICD E78)?: Yes - Visit Date of Assessment:: 04/20/20 Session #:: 0 - pre-cardiac rehab - Cholesterol/Lipids Triglycerides (mg/dL): 248 - 03/21/2020 Total Cholesterol (mg/dL): 99 LDL Cholesterol (mg/dL): 24 HDL Cholesterol (mg/dL): 24 Determine presence & major risk factors that modify LDL goal: Hypertension or hypertensive medication, Low HDL cholesterol <40 mg/dL*, Family history of premature CHD in Male < 55 years: female <65 yearsFa, Age men > 45 years; women >/= 55 years Outcomes/Goals: Pt IDs own risk factors & lifestyle modifications by Session 10, Verbalizes symptoms of angina & response by session 3., Pt independently manages Intervention/Plan: Instruct on personal lipid levels & lipid goals/NCEP guidelines, Instruct on cholesterol - Diabetes (Other Core Measures) Diabetes Type: Diagnosis Type II ICD-10 E11 Fasting blood glucose:: 218 Hgb A1C (4.2 - 6.3): 7.9 Insulin dependent injection/pump?: Yes Non-Insulin Dependent?: Yes Do you monitor your blood sugar at home?: Yes Referral to Diabetic Clinic:: Yes Outcomes/Goals:: Able to state symptoms of, Able to state, Able to state Intervention/Plan:: Instruct on, Refer to, Instruct on - Weight Mgt (Other Care) Not Applicable: No Height: 5 ft 10 in Weight:: 256 lb BMI: 36.7 Diagnosis Overweight/Obesity BMI> 30% ICD-10 E66: Yes Diagnosis High BMI/Morbid Obesity BMI> 35% ICD-10 Z68: Yes Outcomes/Goals: Pt sets, maintains & shows weight loss goal & trend during rehab Intervention/Plan: Instruct on ideal BMI & set weight loss goal w/patient, Assist pt to ID & incorporate diet changes for weight loss by S9, Refer to Structured Weight Loss program as appropriate, Encourage goal of using 250-300dcal per session for weight loss - Healthy Eating Habits Will attend diet classes:: Yes Outcomes/Goals:: Consume diet rich in vegs,fruits,whole grain/high fiber,fish,lean meat, Limit sat/trans fats,cholesterol & added salts & sugars Intervention/Plan:: Assess current eating habits - Education Gave educational materials for:: Signs & symptoms of hypoglycemia, Signs & symptoms of hyperglycemia, Relate diabetes to coronary artery disease, Healthy eating Medical - Initial Assessment - Visit Date of Eval: 04/20/20 Session #:: 0 - pre-cardiac rehab - Medication Compliance Preventative Medication(s):: Aspirin, Ticagrelor/P2Y12 inhibitor, Statin/lipid, Beta jennie H/O mental health issues: depression, anxiety, or addiction?: No Doesn?t believe in the benefits of treatment?: No Believes medications are unnecessary or harmful?: No Has a concern about medication side effects?: No Expresses concern over the cost of medications?: No Outcomes/Goals: Verbalizes medications,desired effect & common side effects @ DC, Pt self-reports following medication regimen, Keeps card in wallet w/medications listed by DC Interventions/plans: Instruct on medication effects & side effects, Review medication list w/patient every two weeks, Instruct importance of taking meds as ordered & assist problem solving - Tobacco Use Tobacco Use: Non-smoker - Hypertension Hypertension Diagnosis:: Hypertension ICD-10 I10 Resting Blood Pressure:: 132/80 [place] [employer] Hypertension Guidelines: [place] [employer] Hypertension Guidelines. Normal BP Less than 120/80. Elevated BP 120/80. Hypertension Stage 1: BP 130-139/80-89. Hypertesnion Stage 2: BP 140 or higher/90 or higher. Hypertension Crisis: BP higher than 180/120 Outcomes/Goals: Able to verbalize/achieve optimal blood pressure <130/80, Incorporates diet changes & exercise for blood pressure control by DC Interventions/plan: Instruct on optimal blood pressure, hypertension & medications, Instruct on effects of sodium, alcohol, stress, exercise &hypertension - Tobacco Cessation Referral Smoking Cessation Referral:: No Individual Education/Counseling:: No Education Schedule Given:: Yes Psychosocial - Initial Assess - VIsit Date of Eval: 04/20/20 Session #:: 0 - pre-cardiac rehab Not Applicable: Yes History of previous Mental disease:: No - Target Goals Target Goals: Assess presence or absence of depression. Using a valid screening tool, maximizes coping skills. Positive support system - Psychosocial Test Tool Used:: Mariza Sibley QOL Cardiac, PHQ-9 Questionnaire phq-9 Severity: Severity. 1-4 Minimal Depression. 5-9 Mild Depression. 10-14 Moderate Depression. 15-19 Moderately Sever Depression. 20-27 Severe Depression. Rule: - Referral to Behavioral Health PS - Interventions: Yes Attend Stress Management Classes, No Referral to Behavioral Health if PHQ-9 score >9:, No Referral to [facility], No Referral to Physician if PHQ-9 if score is 5-9: - Outcomes/Goals: See list Psychosocial Outcomes/Goals:: ID's personal stressors & 2 strategies to manage stress by discharge - Intervention/Plan: See List Interventions/Plan:: Assess stressors,coping strategies & signs of derpression on admission, Instruct/assist pt to develop coping & personal stress Mgt strategies, Instruct patient to recognize signs & symptoms of depression, Instruct patient to recog Patient Health Questionnaire Initial Assessment 1. Little interest or pleasure in doing things: Not at all 2. Feeling down, depressed, or hopeless: Not at all 3. Trouble falling or staying asleep, or sleeping too much: Several days 4. Feeling tired or having little energy: More than half the days 5. Poor appetite or overeating: Not at all 6. Feeling bad about yourself -- or that you are a failure or have let yourself or your family down: Not at all 7. Trouble concentrating on things, such as reading the newspaper or watching television: Several days 8. Moving or speaking so slowly that other people could have noticed. Or the opposite - being so fidgety or restless that you have been moving around a lot more than usual: Not at all 9. Thoughts that you would be better off , or of hurting yourself in some way: Not at all How difficult have these problems made it for you to do your work, take care of things at home, or get along with other people?: Somewhat difficult Total Score: 4 CHRIS-Q SV Test - Statements CAD is a disease of the arteries in the heart: False Examples of risk factors for heart disease: True Angina is chest pain or discomfort: I Don't Know The benefits of resistance training include: True Eating more meat and dairy products: False Anti-platelet medications such as aspirin are important: True The only effective way to manage stress: False An exercise warm-up slowly increases heart rate: I Don't Know Prepared, processed foods usually have high sodium: True Depression is common after a heart attack: I Don't Know The statin medications lower cholesterol: True To control blood pressure, lower the amount of sodium: True If someone gets chest discomfort during walking: False Transfats are partially hydrogenated vegetable oils: True Sleep apnea that is not treated increases the risk: False To control cholesterol, one should become a vegetarian: False Someone knows if he/she is exercising at the right level: I Don't Know Diabetes cannot be prevented with exercise & health eating: False Stress is a large risk for heart attack: True A diet that can help lower blood pressure is rich in: True - Total Score Total Correct Responses: 16 Self-Efficacy Initial Assessment We would like to know how confident you are in doing certain activities. Please select your confidence level for:: Select your confidence level for the following using the scale 1-10 where 1 is not at all confident and 10 is totally confident. Your score is the average of all 6 responses. Fatigue: How confident are you that you can keep the fatigue caused by your disease from interfering with the things you want to do? Select Number: 7 Physical Discomfort or Pain: How confident are you that you can keep the physical discomfort or pain of your disease from interfering with the things you want to do? Select Number: 7 Emotional Distress: How confident are you that you can keep the emotional distress caused by your disease from interfering with the things you want to do? Select Number: 8 Other Symptoms or Health Problems: How confident are you that you can keep other symptoms or health problems from interfering with the things you want to do? Select Number: 8 Different Tasks and Activities: How confident are you that you can do the different tasks and activities needed to manage your health condition so as to reduce your need to see a doctor? Select Number: 8 Medication: How confident are you that you can do things other than just taking medication to reduce how much your illness affects your everyday life? Select Number: 8 Total Score:: 7 Nutrition Survey - Nutrition Survey Instructions Scoring Instructions: Scoring is as follows: Yes = 1 points. No = 0 point. Patient score that is >/=12 is considered to be at potential nutritional risk and could benefit from a referral to a registered dietitian. - Nutrition Survey Initial Have you lost >10 lbs over the past 2 months without trying?: No Are you following a special diet at home for diabetes, low fat, or low salt?: No Are you interested in meeting with a dietitian for help understanding your diet?: No - already have met with nutritional services about diet & diabetes Do you eat less than 3 meals a day?: No Do you eat fatty meats (salazar, sausage, ribs, etc), fried foods, desserts, large amounts of salad dressings, margarine, butter, or cheese most days?: No Do you have food allergies? [Enter types in comment field]: No Do you eat in restaurants more than 3 times a week?: No Do you season food with salt, seasoning salt, or garlic salt?: Yes Do you used canned, boxed, frozen meals, or soups, seasoning packets?: Yes Total Score:: 2
--- NOTE | 2020-04-20 08:03 | PCM.CR.HP2 ---
CR - History & Physical - General Arrival date:: 04/20/20 Arrival time:: 08:05 Date of Referral:: 04/09/20 Date of CR Evaluation:: 04/20/20 - Rescheduled due to weather this week. Referring Physician: Dr. Kraig Brandon Primary Diagnosis: PCI w/coronary stenting - History of Present Cardiac Event Onset Date: Enter Onset Date of cardiac illnesses in Comment field below PTCA or coronary stenting:: Yes - 04/09/2020 Type of Symptoms:: chest pains and really tired. Were there any complications?: none; having nose bleeds due to Brilinta, will be changing over to Plavix - Medications Home Medications: Ambulatory Orders Medication Instructions Recorded allopurinol 300 mg tablet 300 mg PO DAILY tab 03/01/20 balsalazide 750 mg capsule 2,250 mg PO BID cap 03/01/20 gabapentin 100 mg capsule 100 mg PO QHS 03/01/20 lisinopril 5 mg tablet 5 mg PO DAILY 03/01/20 omeprazole 20 mg capsule,delayed 20 mg PO DAILY 03/01/20 release sitagliptin 50 mg-metformin ER 1 tab PO BID tab 03/01/20 1,000 mg tablet,extended release 24h mp sildenafil 50 mg tablet 50 mg PO DAILY PRN 03/20/20 atorvastatin 20 mg tablet 20 mg PO QHS #90 tab 03/21/20 aspirin 81 mg tablet,delayed 81 mg PO DAILY 04/02/20 release Ticagrelor [Brilinta] 90 mg PO BID #60 tab 04/10/20 - Allergies Allergies/Adverse Reactions: Allergies No Known Allergies Allergy (Verified 04/06/20 09:19) - Sleep Disorder Evaluation Hx of Sleep Apnea: No Do you snore loudly (louder than talking or can be heard through closed doors)?: Yes Do you often feel tired/ fatigued/ sleepy during daytime?: No Has anyone observed you stop breathing during sleep?: No History of Hypertension (for STOP score): Yes STOP Results: Positive Advanced Directives - Advanced Directives 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 Living Will: Yes Advance Directives Information Provided: No Advance Directives on File: No DNR Order?:: No - MOLST See MOLST form: No Past Medical History - Covid-19 Screening Fever: No Unexplained muscle aches: No Current respiratory symptoms: No Upper respiratory infections symptoms: No Gastro-intestinal symptoms: Yes - history of GERD Dpl-Cnnh-Kiiovh symptoms: No Has tested positive for COVID-19 in last 30 days: No Date of testin04/13/20 - test was negative Had contact w/person w/symptoms or Covid-19 (+) last 14 days: No Has High Risk Exposures ID'd by Health dept/Inf Control team: No 65 years or older:: Yes Lives in Assisted Living facility:: No Has a chronic lung disease or moderate to severe asthma:: Yes Has a serious heart condition:: Yes Immunocompromised:: No Severely obese (Body Mass Index of 40 or higher):: Yes Diabetic:: Yes Has chronic kidney disease undergoing dialysis:: Yes Has liver disease:: No - Past Medical Illness Medical History: Past Medical History (Last Updated 04/09/20 @ 13:41 by Tiffany Little) Atherosclerotic heart disease of [place] coronary artery without angina pectoris (Chronic) I25.10 Hyperlipidemia (Chronic) E78.5 Thrombocytopenia (Chronic) D69.6 Acute superficial venous thrombosis of right lower extremity I82.811 Erectile dysfunction N52.9 GERD (gastroesophageal reflux disease) K21.9 Gout M10.9 IBS (irritable bowel syndrome) K58.9 Obesity E66.9 Pulmonary nodule R91.1 Restless leg syndrome G25.81 Thyroid nodule E04.1 Type 2 diabetes mellitus E11.9 Ulcerative colitis K51.90 Cardiomyopathy (Resolved) I42.9 Coronary artery calcification seen on CT scan I25.10 - Past Surgical History Surgical History: Past Surgical History (Last Updated 04/09/20 @ 13:41 by Tiffany Little) History of coronary artery stent placement (Resolved) Onset Date: 04/09/20 Z95.5 PCI-MARTINEZ-Mid LAD w/ 3.0 x 16 mm Synergy Stent and MARTINEZ-Ostium OM1 w/ 2.5 x 12 mm Synergy Stent 04/09/20 History of bilateral knee replacement Z96.653 History of cataract extraction Z98.49 History of cholecystectomy Z90.49 History of revision of total knee arthroplasty Z96.659 History of shoulder surgery Z98.890 History of surgery on wrist Z98.890 - Family History Summary Family History: Family History (Last Reviewed 03/21/20 @ 09:[address] 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 Left click = Reports ([place]) Review of Present Symptoms: Reports: Dizziness/Lightheadedness - when stand very fast for a few seconds., Appetite - Normal, Appetite - Special Diet - Recommended following a diabetic low fat low salt diet., Sleep - Normal. Denies: Shortness of Breath at Rest, Shortness of Breath with Exertion, Angina, Fatigue, Heart Arrhythmia/Irregularities, Sexual Changes - Pain Is Patient Pain Free?: Yes Pain Location: none, lower extremity - bilateral knee replacements Pain Level: 0/10 Risk Factor Assessment - Vital Signs Temperature: 97.7 F Respiratory Rate: 16 Pulse Ox: 98 Blood Pressure: 132/80 - Pulse Pulse Rate: 70 Pulse Rhythm: Regular - Hypertension Blood Pressure Sitting - Left Arm: 132/80 - Blood Cholesterol/Lipids Total Cholesterol (mg/dL) Goal = less than 200 mg/dL: 99 HDL Cholesterol (mg/dL) Goal = less than 40 mg/dL: 24 LDL Cholesterol (mg/dL) Goal = less than 70 mg/dL: 24 Triglycerides (mg/dL) Goal = less than 150 mg/dL: 248 - Diabetes Diabetic History: Type II Nutrition Referral for Diabetes: Yes - Obesity Height: 5 ft 10 in Weight:: 256 lb Weight in Pounds: 256.0 lbs Weight Source: Stated by Patient Body Mass Index (BMI): 36.7 Nutritional Referral for Obesity: Yes - Risk Stratification Risk Guidelines: Lowest Risk: Risk Factor for Smoking, Risk Factor for Sedentary Lifestyle, Risk Factor for Depression, Moderate Risk: Risk Factor for Dyslipidemia, Risk Factor for Diabetes - Glucose 218, hBA1c 7.9, Risk Factor for Hypertension - 132/80, Highest Risk: Risk Factor for Obesity - For Smoking Smoking Risk Guidelines: Smoking Low Risk: None or quit greater than 6 months ago. Smoking Moderate Risk: Smoker or quit 6 months or less ago. Smoking High Risk: Smoker - For Dyslipidemia Dyslipidemia Risk Guidelines: Low Risk: Moderate Risk: High Risk: 15-25% fat 25.1-29% fat >/= 30% fat. <7% sat fat 7-9% sat fat >9% sat fat. <150 mg chol 150-299 mg chol >/= 300 mg chol. LDL <100 LDL 100-129 LDL >/= 130. Chol/HDL ratio <5.0 Chol/HDL ratio 5.0-6.0 Chol/HDL ratio >6.0. Triglycerides <100 Triglycerides 100-149 Triglycerides >/= 150 - For Diabetes Mellitus Diabetes Risk Guidelines: Diabetes Low Risk: HgA1c <6.5% and/or FBG <120. Diabetes Moderate Risk: HgA1c 6.6-7.9% and/or FBG 120-180. Diabetes High Risk: HgA1c >/= 8% and/or FBG >180 - For Obesity/Overweight Obesity/Overweight Risk Guidelines: Obesity Low Risk: BMI <25.0. Obesity Moderate Risk: BMI 25-29.9. Obesity High Risk: BMI >/= 30.0 - For Hypertension Hypertension Risk Guidelines: Hypertension Low Risk: Systolic <120 and Diastolic <80. Hypertension Moderate Risk: Systolic 120-139 and Diastolic 80-89. Hypertension High Risk: Systolic >/= 140 and Diastolic >/= 90 - For Sedentary Lifestyle Sedentary Lifestyle Risk Guidelines: Sedentary Lifestyle Low Risk: >/= 1,500 kcal/week. Sedentary Lifestyle Moderate Risk: 700-1,499 kcal/week. Sedentary Lifestyle High Risk: < 700 kcal/week - For Depression Depression Risk Guidelines: Depression Low Risk: Not clinically depressed. Depression Moderate Risk: Mildly depressed. Depression High Risk: Clinically depressed - Family History Family History: Family History (Last Reviewed 03/21/20 @ 09:[address] 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 In other words, what do you hope to get out of participating in the program?: stamina health strength Are there issues you are dealing with that will interfere with completing the program?: none Do you have a spouse or signficant other, family or friends who will help support you to complete the program?: yes
[2020-04-20 08:19] VITALS: BP 132/80; BMI 36.7
[2020-04-20 08:32] VITALS: BP 132/80; PULSE 70; RESP 16; TEMP 36.5; O2SAT 98; BMI 36.7
== END ==
PROVIDERS: PCP Family Medicine; Referring Provider Internal Medicine Cardiovascular Disease; Visit Provider Internal Medicine Cardiovascular Disease
DX: Z95.5 Presence of coronary angioplasty implant and graft (principal)

== ENCOUNTER 2020-04-27 08:00 | Outpatient (RCR) | payer MEDICARE, SELFPAY ==
[2020-04-20 08:19] VITALS: BMI 36.7
[2020-04-20 08:32] VITALS: BMI 36.7
== END 2020-04-29 23:59 ==
LOC: CR 08:00
PROVIDERS: PCP Family Medicine; Visit Provider Internal Medicine Cardiovascular Disease
DX: I25.10 Atherosclerotic heart disease of native coronary artery without angina pectoris (principal); Z95.5 Presence of coronary angioplasty implant and graft; E78.5 Hyperlipidemia, unspecified; D69.6 Thrombocytopenia, unspecified
CPT/HCPCS: 93798

== ENCOUNTER 2020-05-18 08:00 | Outpatient (RCR) | payer MEDICARE, SELFPAY ==
[2020-04-20 08:19] VITALS: BMI 36.7
[2020-04-20 08:32] VITALS: BMI 36.7
--- NOTE | 2020-05-14 09:17 | PCM.CR.ITP ---
Exercise - 30-day Assessment - Visit Date of Eval: 05/14/20 Session #:: 9 - Physician Prescribed Exercise Modalities: Treadmill, Rower, Airdyne Frequency: 3x/week for 12 weeks [36 sessions] Intensity: 60-80% of age predicted maximum heart rate reserve Current METSs:: 4 Target Heart Rate:: 102-131 Current RPE:: 12-13 Maximum Excercise HR:: 126 Resting Blood Pressure: 112/70 Maximum Exercise Blood Pressure: 140/82 EKG Type: SR to sinus tachy with occas PAC's - Outcomes & Goals Goals:: Verbalizes understanding of THR, RPE & goal METS by session 6, Documents in home exercise log/reports 30 min aerobic 5 day/wk by DC, Demonstrates accurate pulse taking by DC, Other additional outcome/goals: see below - Intervention & Plan Exercise Program Goals: Instruct on personal THR & RPE, Instruct on MET level & personal MET goal, Show patient to take own pulse /validate performance until accurate, Instruct on home exercise, Other additional plan/int - 30-day Reassessments 30 day Reassessments:: Progressing - Physical Activity Home Exercise Physical Activity - Home Exercise: Safe Exercise, Warm-up, Self-monitoring, Cool-Down, Home Exercise > 30 min Daily, Sitting Time <3 hours/daily - Outcomes & Goals Outcomes/Goals: Demonstrates correct Warm-up/exercise Cool-Down (S3) if = 2.5 METs, Verbalizes symptoms of exercise intolerance by Session 3 (S3), Demonstrate safe equipment use (S3) & follows exercise prescrition (6), Other: See below - Intervention & Plan Plan/Intervention: Instruct warm-up & cool-down if exercising at > 2 METs, Instruct on symptoms of exercise intolerance & actions to take, Instruct & monitor on saf, Assess intial functional capacity & safety risk, Other See below - 30-day Reassessments 30 day Reassessments:: Progressing Nutrition - 30-Day Assessment - Program Goals Nutrition Program Goals: LDL <100 optimal. 100 - 129 Near optimal. 130 - 159 Borderline High. 160 - 189 High. Total Cholesterol <200 desirable. 200 - 239 Borderline High. >/= 240 High. HDL < 40 Low >/=60 High. Triglycerides <150 desirable. <199 optimal. VlDL 5 - 40. HgbA1C <7%. BMI <25 Patient has diagnosis of Hyperlipidemia (ICD E78)?: Yes - Visit Date of Assessment:: 05/14/20 Session #:: 9 - Cholesterol/Lipids Determine presence & major risk factors that modify LDL goal: Hypertension or hypertensive medication, Low HDL cholesterol <40 mg/dL*, Family history of premature CHD in Male < 55 years: female <65 yearsFa, Age men > 45 years; women >/= 55 years Outcomes/Goals: Pt IDs own risk factors & lifestyle modifications by Session 10, Verbalizes symptoms of angina & response by session 3., Pt independently manages, Other Additional Outcomes/Goals: Intervention/Plan: Advocate for lipid panel cholesterol medication if applicable, Instruct on personal lipid levels & lipid goals/NCEP guidelines, Instruct on cholesterol, Other additional plan/int 30-day Reassessments:: Progressing - Diabetes (Other Core Measures) Diabetes Type: Diagnosis Type II ICD-10 E11 Fasting blood glucose:: 218 Hgb A1C (4.2 -6.3): 7.9 Insulin dependent injection/pump?: Yes Non-Insulin Dependent?: Yes Do you monitor your blood sugar at home?: Yes Referral to Diabetic Clinic:: Yes Outcomes/Goals:: Able to state symptoms of, Able to state, Able to state, Other additional Intervention/Plan:: Instruct on, Refer to, Instruct on, Other 30-day Reassessments:: Progressing - Weight Mgt (Other Care) Height: 5 ft 10 in Weight:: 116.12 kg BMI: 36.7 Diagnosis Overweight/Obesity BMI> 30% ICD-10 E66: Yes Diagnosis High BMI/Morbid Obesity BMI> 35% ICD-10 Z68: Yes Outcomes/Goals: Pt sets, maintains & shows weight loss goal & trend during rehab, Other additional outcomes/goals Intervention/Plan: Instruct on ideal BMI & set weight loss goal w/patient, Assist pt to ID & incorporate diet changes for weight loss by S9, Refer to Structured Weight Loss program as appropriate, Encourage goal of using 250-300dcal per session for weight loss, Other additional plan/interventions 30 day Reassessments:: Progressing - Healthy Eating Habits Will attend diet classes:: Yes Outcomes/Goals:: Consume diet rich in vegs,fruits,whole grain/high fiber,fish,lean meat, Limit sat/trans fats,cholesterol & added salts & sugars, Other additional outcome/goals: Intervention/Plan:: Assess current eating habits, Other Additional plan/interventions 30-day Reassessments:: Progressing - Education Gave educational materials for:: Signs & symptoms of hypoglycemia, Signs & symptoms of hyperglycemia, Relate diabetes to coronary artery disease, Healthy eating Medical- 30-Day Assessment - Visit Date of Eval: 05/14/20 Session #:: 9 - Medication Compliance Preventative Medication(s):: Aspirin, Ticagrelor/P2Y12 inhibitor, Statin/lipid, Beta jennie H/O mental health issues: depression, anxiety, or addiction?: No Doesn?t believe in the benefits of treatment?: No Believes medications are unnecessary or harmful?: No Has a concern about medication side effects?: No Expresses concern over the cost of medications?: No Outcomes/Goals: Verbalizes medications,desired effect & common side effects @ DC, Pt self-reports following medication regimen, Keeps card in wallet w/medications listed by DC, Other additional outcome/goals: Interventions/plans: Instruct on medication effects & side effects, Review medication list w/patient every two weeks, Instruct importance of taking meds as ordered & assist problem solving, Other additional 30-day Reassessments:: Progressing - Tobacco Use Tobacco Use: Non-smoker Do you use smokeless tobacco?: No - Hypertension Hypertension Diagnosis:: Hypertension ICD-10 I10 Resting Blood Pressure:: 112/70 [place] [employer] Hypertension Guidelines: [place] [employer] Hypertension Guidelines. Normal BP Less than 120/80. Elevated BP 120/80. Hypertension Stage 1: BP 130-139/80-89. Hypertesnion Stage 2: BP 140 or higher/90 or higher. Hypertension Crisis: BP higher than 180/120 Peak Exercise Blood Pressure:: 140/82 Outcomes/Goals: Able to verbalize/achieve optimal blood pressure <130/80, Incorporates diet changes & exercise for blood pressure control by DC, Other additional outcomes/goals Interventions/plan: Instruct on optimal blood pressure, hypertension & medications, Instruct on effects of sodium, alcohol, stress, exercise &hypertension, Other additional plan/interventions 30 day Reassessments:: Progressing - Tobacco Cessation Referral Smoking Cessation Referral:: No Individual Education/Counseling:: No Education Schedule Given:: Yes Psychosocial - 30-Day Assess - VIsit Date of Eval: 05/14/20 Session #:: 9 - Target Goals Target Goals: Assess presence or absence of depression. Using a valid screening tool, maximizes coping skills. Positive support system - Psychosocial Test phq-9 Severity: Severity. 1-4 Minimal Depression. 5-9 Mild Depression. 10-14 Moderate Depression. 15-19 Moderately Sever Depression. 20-27 Severe Depression. Rule: - Outcomes/Goals: See list Psychosocial Outcomes/Goals:: ID's personal stressors & 2 strategies to manage stress by discharge, Other Additional outcome/goals: - Intervention/Plan: See List Interventions/Plan:: Assess stressors,coping strategies & signs of derpression on admission, Instruct/assist pt to develop coping & personal stress Mgt strategies, Refer to Behavioral Health if appropriate, Refer to Physician if appropriate, Instruct patient to recognize signs & symptoms of depression, Instruct patient to recog, Other additional plan/intervention - 30-day Reassessments: 30 day Reassessments:: Progressing Patient Health Questionnaire 30-Day Re-eval Assessment 1. Little interest or pleasure in doing things: Not at all 2. Feeling down, depressed, or hopeless: Not at all 3. Trouble falling or staying asleep, or sleeping too much: Several days 4. Feeling tired or having little energy: More than half the days 5. Poor appetite or overeating: Not at all 6. Feeling bad about yourself -- or that you are a failure or have let yourself or your family down: Not at all 7. Trouble concentrating on things, such as reading the newspaper or watching television: Several days 8. Moving or speaking so slowly that other people could have noticed. Or the opposite - being so fidgety or restless that you have been moving around a lot more than usual: Not at all 9. Thoughts that you would be better off , or of hurting yourself in some way: Not at all How difficult have these problems made it for you to do your work, take care of things at home, or get along with other people?: Somewhat difficult Total Score: 4 Self-Efficacy 30-Day Re-eval Assessment We would like to know how confident you are in doing certain activities. Please select your confidence level for:: Select your confidence level for the following using the scale 1-10 where 1 is not at all confident and 10 is totally confident. Your score is the average of all 6 responses. Fatigue: How confident are you that you can keep the fatigue caused by your disease from interfering with the things you want to do? Select Number: 7 Physical Discomfort or Pain: How confident are you that you can keep the physical discomfort or pain of your disease from interfering with the things you want to do? Select Number: 7 Emotional Distress: How confident are you that you can keep the emotional distress caused by your disease from interfering with the things you want to do? Select Number: 8 Other Symptoms or Health Problems: How confident are you that you can keep other symptoms or health problems from interfering with the things you want to do? Select Number: 8 Different Tasks and Activities: How confident are you that you can do the different tasks and activities needed to manage your health condition so as to reduce your need to see a doctor? Select Number: 8 Medication: How confident are you that you can do things other than just taking medication to reduce how much your illness affects your everyday life? Select Number: 8 Total Score:: 7
[2020-05-14 09:26] VITALS: BP 112/70; BP 140/82; BMI 36.7
--- NOTE | 2020-05-18 08:16 | PCM.CR.ITP ---
Exercise - Final/Discharge - Visit Date of Jesus Manuel: 05/18/20 Session #:: 12 - Physician Prescribed Exercise Modalities: Treadmill, Rower, Airdyne Frequency: 3x/week for 12 weeks [36 sessions] Intensity: 60-80% of age predicted maximum heart rate reserve Current METSs:: 4 Target Heart Rate:: 102-131 Current RPE:: 12-13 Maximum Excercise HR:: 130 Resting Blood Pressure: 120/60 Maximum Exercise Blood Pressure: 134/80 - Outcomes & Goals Goals:: Verbalizes understanding of THR, RPE & goal METS by session 6, Documents in home exercise log/reports 30 min aerobic 5 day/wk by DC, Demonstrates accurate pulse taking by DC, Other additional outcome/goals: see below - Intervention & Plan Exercise Program Goals: Instruct on personal THR & RPE, Instruct on MET level & personal MET goal, Show patient to take own pulse /validate performance until accurate, Instruct on home exercise, Other additional plan/int - 30-day Reassessments 30 day Reassessments:: Met - Physical Activity Home Exercise Physical Activity - Home Exercise: Safe Exercise, Warm-up, Self-monitoring, Cool-Down, Home Exercise > 30 min Daily, Sitting Time <3 hours/daily - Outcomes & Goals Outcomes/Goals: Demonstrates correct Warm-up/exercise Cool-Down (S3) if = 2.5 METs, Verbalizes symptoms of exercise intolerance by Session 3 (S3), Demonstrate safe equipment use (S3) & follows exercise prescrition (6), Other: See below - Intervention & Plan Plan/Intervention: Instruct warm-up & cool-down if exercising at > 2 METs, Instruct on symptoms of exercise intolerance & actions to take, Instruct & monitor on saf, Assess intial functional capacity & safety risk, Other See below - 30-day Reassessments 30 day Reassessments:: Met Reassessment Notes & Comments:: Pt stopping at 12 visits due to insurance copay. Nutrition - Final Assessment - Program Goals Nutrition Program Goals: LDL <100 optimal. 100 - 129 Near optimal. 130 - 159 Borderline High. 160 - 189 High. Total Cholesterol <200 desirable. 200 - 239 Borderline High. >/= 240 High. HDL < 40 Low >/=60 High. Triglycerides <150 desirable. <199 optimal. VlDL 5 - 40. HgbA1C <7%. BMI <25 Patient has diagnosis of Hyperlipidemia (ICD E78)?: Yes - Visit Date of Assessment:: 05/18/20 Session #:: 12 - Cholesterol/Lipids Determine presence & major risk factors that modify LDL goal: Hypertension or hypertensive medication, Low HDL cholesterol <40 mg/dL*, Family history of premature CHD in Male < 55 years: female <65 yearsFa, Age men > 45 years; women >/= 55 years Outcomes/Goals: Pt IDs own risk factors & lifestyle modifications by Session 10, Verbalizes symptoms of angina & response by session 3., Pt independently manages, Other Additional Outcomes/Goals: Intervention/Plan: Advocate for lipid panel cholesterol medication if applicable, Instruct on personal lipid levels & lipid goals/NCEP guidelines, Instruct on cholesterol, Other additional plan/int 30-day Reassessments:: Met - Diabetes (Other Core Measures) Diabetes Type: Diagnosis Type II ICD-10 E11 Insulin dependent injection/pump?: Yes Non-Insulin Dependent?: Yes Do you monitor your blood sugar at home?: Yes Referral to Diabetic Clinic:: Yes Outcomes/Goals:: Able to state symptoms of, Able to state, Able to state, Other additional Intervention/Plan:: Instruct on, Refer to, Instruct on, Other 30-day Reassessments:: Met - Weight Mgt (Other Care) Height: 5 ft 10 in Weight:: 112.945 kg BMI: 35.7 Outcomes/Goals: Pt sets, maintains & shows weight loss goal & trend during rehab, Other additional outcomes/goals Intervention/Plan: Instruct on ideal BMI & set weight loss goal w/patient, Assist pt to ID & incorporate diet changes for weight loss by S9, Refer to Structured Weight Loss program as appropriate, Encourage goal of using 250-300dcal per session for weight loss, Other additional plan/interventions 30 day Reassessments:: Met - Healthy Eating Habits Will attend diet classes:: Yes Outcomes/Goals:: Consume diet rich in vegs,fruits,whole grain/high fiber,fish,lean meat, Limit sat/trans fats,cholesterol & added salts & sugars, Other additional outcome/goals: Intervention/Plan:: Assess current eating habits, Other Additional plan/interventions 30-day Reassessments:: Met - Education Gave educational materials for:: Signs & symptoms of hypoglycemia, Signs & symptoms of hyperglycemia, Relate diabetes to coronary artery disease, Healthy eating Medical - Final Assessment - Visit Date of Eval: 05/18/20 Session #:: 12 - Medication Compliance Preventative Medication(s):: Aspirin, Ticagrelor/P2Y12 inhibitor, Statin/lipid, Beta jennie H/O mental health issues: depression, anxiety, or addiction?: No Doesn?t believe in the benefits of treatment?: No Believes medications are unnecessary or harmful?: No Has a concern about medication side effects?: No Expresses concern over the cost of medications?: No Outcomes/Goals: Verbalizes medications,desired effect & common side effects @ DC, Pt self-reports following medication regimen, Keeps card in wallet w/medications listed by DC, Other additional outcome/goals: Interventions/plans: Instruct on medication effects & side effects, Review medication list w/patient every two weeks, Instruct importance of taking meds as ordered & assist problem solving, Other additional 30-day Reassessments:: Met - Tobacco Use Tobacco Use: Non-smoker Do you use smokeless tobacco?: No - Hypertension Hypertension Diagnosis:: Hypertension ICD-10 I10 Resting Blood Pressure:: 120/60 [place] [employer] Hypertension Guidelines: [place] [employer] Hypertension Guidelines. Normal BP Less than 120/80. Elevated BP 120/80. Hypertension Stage 1: BP 130-139/80-89. Hypertesnion Stage 2: BP 140 or higher/90 or higher. Hypertension Crisis: BP higher than 180/120 Peak Exercise Blood Pressure:: 134/80 Outcomes/Goals: Able to verbalize/achieve optimal blood pressure <130/80, Incorporates diet changes & exercise for blood pressure control by DC, Other additional outcomes/goals Interventions/plan: Instruct on optimal blood pressure, hypertension & medications, Instruct on effects of sodium, alcohol, stress, exercise &hypertension, Other additional plan/interventions 30 day Reassessments:: Met - Tobacco Cessation Referral Smoking Cessation Referral:: No Individual Education/Counseling:: No Education Schedule Given:: Yes Psychosocial - Final Assessmen - VIsit Date of Eval: 05/18/20 Session #:: 12 History of previous Mental disease:: No - Target Goals Target Goals: Assess presence or absence of depression. Using a valid screening tool, maximizes coping skills. Positive support system - Psychosocial Test phq-9 Severity: Severity. 1-4 Minimal Depression. 5-9 Mild Depression. 10-14 Moderate Depression. 15-19 Moderately Sever Depression. 20-27 Severe Depression. Rule: - Outcomes/Goals: See list Psychosocial Outcomes/Goals:: ID's personal stressors & 2 strategies to manage stress by discharge, Other Additional outcome/goals: - Intervention/Plan: See List Interventions/Plan:: Assess stressors,coping strategies & signs of derpression on admission, Instruct/assist pt to develop coping & personal stress Mgt strategies, Refer to Behavioral Health if appropriate, Refer to Physician if appropriate, Instruct patient to recognize signs & symptoms of depression, Instruct patient to recog, Other additional plan/intervention - 30-day Reassessments: 30 day Reassessments:: Met Patient Health Questionnaire Discharge Assessment 1. Little interest or pleasure in doing things: Several days 2. Feeling down, depressed, or hopeless: Not at all 3. Trouble falling or staying asleep, or sleeping too much: Not at all 4. Feeling tired or having little energy: Several days 5. Poor appetite or overeating: Several days 6. Feeling bad about yourself -- or that you are a failure or have let yourself or your family down: Not at all 7. Trouble concentrating on things, such as reading the newspaper or watching television: Not at all 8. Moving or speaking so slowly that other people could have noticed. Or the opposite - being so fidgety or restless that you have been moving around a lot more than usual: Not at all 9. Thoughts that you would be better off , or of hurting yourself in some way: Not at all How difficult have these problems made it for you to do your work, take care of things at home, or get along with other people?: Somewhat difficult Total Score: 3 CHRIS-Q SV Test - Statements CAD is a disease of the arteries in the heart: False Examples of risk factors for heart disease: True Angina is chest pain or discomfort: True The benefits of resistance training include: True Eating more meat and dairy products: False Anti-platelet medications such as aspirin are important: True The only effective way to manage stress: False An exercise warm-up slowly increases heart rate: True Prepared, processed foods usually have high sodium: True Depression is common after a heart attack: True The statin medications lower cholesterol: True To control blood pressure, lower the amount of sodium: True If someone gets chest discomfort during walking: False Transfats are partially hydrogenated vegetable oils: True Sleep apnea that is not treated increases the risk: False To control cholesterol, one should become a vegetarian: I Don't Know Someone knows if he/she is exercising at the right level: True Diabetes cannot be prevented with exercise & health eating: False Stress is a large risk for heart attack: True A diet that can help lower blood pressure is rich in: True - Total Score Total Correct Responses: 19 Self-Efficacy Discharge Assessment We would like to know how confident you are in doing certain activities. Please select your confidence level for:: Select your confidence level for the following using the scale 1-10 where 1 is not at all confident and 10 is totally confident. Your score is the average of all 6 responses. Fatigue: How confident are you that you can keep the fatigue caused by your disease from interfering with the things you want to do? Select Number: 8 Physical Discomfort or Pain: How confident are you that you can keep the physical discomfort or pain of your disease from interfering with the things you want to do? Select Number: 9 Emotional Distress: How confident are you that you can keep the emotional distress caused by your disease from interfering with the things you want to do? Select Number: 8 Other Symptoms or Health Problems: How confident are you that you can keep other symptoms or health problems from interfering with the things you want to do? Select Number: 7 Different Tasks and Activities: How confident are you that you can do the different tasks and activities needed to manage your health condition so as to reduce your need to see a doctor? Select Number: 8 Medication: How confident are you that you can do things other than just taking medication to reduce how much your illness affects your everyday life? Select Number: 8 Total Score:: 8 Nutrition Survey - Nutrition Survey Instructions Scoring Instructions: Scoring is as follows: Yes = 1 points. No = 0 point. Patient score that is >/=12 is considered to be at potential nutritional risk and could benefit from a referral to a registered dietitian. - Nutrition Survey Discharge Have you lost >10 lbs over the past 2 months without trying?: No Are you following a special diet at home for diabetes, low fat, or low salt?: Yes Are you interested in meeting with a dietitian for help understanding your diet?: No Do you eat less than 3 meals a day?: No Do you eat fatty meats (salazar, sausage, ribs, etc), fried foods, desserts, large amounts of salad dressings, margarine, butter, or cheese most days?: Yes Do you have food allergies? [Enter types in comment field]: No Do you eat in restaurants more than 3 times a week?: No Do you season food with salt, seasoning salt, or garlic salt?: Yes Do you used canned, boxed, frozen meals, or soups, seasoning packets?: No Total Score:: 3
[2020-05-18 08:30] VITALS: BP 120/60; BP 134/80; BMI 35.7
== END 2020-05-30 23:59 ==
LOC: CR 08:00
PROVIDERS: PCP Family Medicine; Visit Provider Internal Medicine Cardiovascular Disease
DX: I25.10 Atherosclerotic heart disease of native coronary artery without angina pectoris (principal); Z95.5 Presence of coronary angioplasty implant and graft; E78.5 Hyperlipidemia, unspecified; D69.6 Thrombocytopenia, unspecified
CPT/HCPCS: 93798

== ENCOUNTER → 2020-06-04 08:09 | Outpatient (CLI) | payer MEDICARE, SELFPAY ==
[2020-04-20 08:32] VITALS: BMI 36.7
[2020-05-18 08:30] VITALS: BMI 35.7
--- NOTE | 2020-06-04 08:13 | US_ITS ---
STUDY: ABDOMINAL ULTRASOUND - RIGHT UPPER QUADRANT REASON FOR VISIT: Male, 64 years old ELEVATED LIVER FUNCTION TECHNIQUE: Ultrasound evaluation of the right upper quadrant was performed with real-time and static oh-scale imaging. TECHNICAL QUALITY: Adequate. COMPARISON: None. FINDINGS: Liver: The liver measures 17.5 cm. There is increased echogenicity of the liver. The bile ducts are within normal limits. There is hepatic color flow. The direction of portal flow is hepatopetal. There is no demonstrated mass lesion. Gallbladder: Normal distended gallbladder. The gallbladder wall measures 2 mm. There is a negative sonographic Perdomo''s sign. There is no pericholecystic fluid. There are no gallstones. Common Bile Duct (C.B.D.): The common bile duct measures 5 mm. Pancreas: Normal size of the head, body and tail of the pancreas. There is normal echogenicity of the pancreas. There is no demonstrated pancreatic mass or cyst. Right Kidney: Normal size of the right kidney. The right kidney measures 11.4 x 6.0 x 5.8 cm. Normal renal cortex. The right cortex measures 1.5 cm. There is no demonstrated renal mass or cyst. There is no right hydronephrosis. US/Abdomen Limited IMPRESSION: Enlarged fatty liver. Electronically Signed: Tigre Matthew MD at 12:14 EDT Tel , Service support ,
[2020-06-04 10:15] LABS: AST(SGOT) 20 U/L (15-37); Alanine Aminotransfer ALT/SGPT 24 U/L (16-61); Albumin, Serum 4.1 g/dL (3.2-5.0); Alkaline Phosphatase 64 U/L (45-117); Bilirubin, Direct 0.41 mg/dL (0.00-0.30); Globulin 3.6 g/dL (2.2-4.2); Protein, Total 7.7 g/dL (6.4-8.2)
[2020-06-05 08:08] LABS: HEPATITIS B SURFACE AG Negative (Negative); Hepatitis A AB, Total Negative (Negative); Hepatitis A IgM Antibody Negative (Negative); Hepatitis B Core AB IgM Negative (Negative); Hepatitis B Core Ab Total Negative (Negative); Hepatitis C Ab <0.1 s/co ratio (0.0-0.9)
[2020-06-05 08:58] LABS: Hep B Surface Antibodies Non Reactive (.)
== END ==
PROVIDERS: PCP Family Medicine; Referring Provider Family Medicine; Visit Provider Family Medicine
DX: R79.89 Other specified abnormal findings of blood chemistry (principal)
CPT/HCPCS: 36415; 76705; 80076; 86704; 86705; 86706; 86708; 86709; 86803; 87340

== ENCOUNTER 2020-06-05 14:44 | Emergency (ER) | payer MEDICARE, SELFPAY ==
[2020-04-20 08:32] VITALS: BMI 36.7
[2020-06-05 14:45] VITALS: BP 132/78; PULSE 99; RESP 15; TEMP 36.8; O2SAT 97; BMI 34.7
--- NOTE | 2020-06-05 14:58 | ED.VIS.GEN ---
History of Present Illness Chief Complaint: Nosebleed Informant: Patient Narrative: Patient is a 64-year-old male who presents to the emergency department for bleeding from the not left nostril. He states that has been a constant bleed for the past 8 hours. This is the third episode over the past 2 months. He denies any digital trauma. He is on aspirin and Brilinta. He denies any lightheadedness, chest pain, shortness of breath or heart palpitations with this. No other bleeding or easy bruising elsewhere. He has not seen an ear nose and throat doctor yet. He currently has bleeding controlled with packing and clamp over the nose bilaterally. Past Medical History - Allergies and Home Meds Allergies/Adverse Reactions: Allergies No Known Allergies Allergy (Verified 06/05/20 14:45) Primary Care Physician: Christian Person MD [STAFF PHYSICIAN] - 3-5 Days Angelito Glynn MD [Primary Care Provider] - Prior records reviewed: Yes Past Medical History: - - Diabetes, CAD, cardiomyopathy Smoking Status: Never smoker Review of Systems All systems negative except as indicated General: Denies: Chills, Fever, Sweats Eyes: Denies: Visual changes - bilaterally, Diplopia ENT: Reports: - - Epistaxis. Denies: Rhinorrhea, Sore throat Cardiovascular: Denies: Chest pain, Palpitations Respiratory: Denies: Dyspnea, Cough, Dyspnea on exertion Gastrointestinal: Denies: Abdominal pain, Nausea, Vomiting, Diarrhea Musculoskeletal: Denies: Swelling, Extremity Pain Skin: Denies: Rash Neurological: Denies: Headache, Weakness, Numbness Hematologic: Denies: Easy bruising, Easy bleeding Physical Exam Vital Signs/Narrative: Vital Signs Temp Pulse Resp BP Pulse Ox 06/05/20 14:45 98.2 F 99 15 132/78 H 97 Inital Vital Signs reviewed: Yes General: Well nourished, Well developed, No Acute Distress Head: Normocephalic, Atraumatic Eyes: Perrl, EOMI ENT: Moist mucous membranes, No rhinorrhea, - - Slow venous ooze present from right nostril. There is some irritation to the anterior nasal septum. Neck: Supple, Nontender Cardiovascular: Regular rate, Regular rhythm, No murmurs Respiratory: No distress, CTA bilaterally, Chest nontender Abdomen: Nondistended Back: Nontender, Normal Inspection Extremities: Nontender, No edema Skin: Normal color, No rash Neurological: Alert, Normal Strength, Normal Sensation Psychological: Normal affect, Normal Mood Diagnostic/Tx/Re-eval - Medical Decision Making Patient presents to the ED for nosebleed from the right nostril. Upon arrival to the emergency department vital signs within normal limits. He has no symptoms of anemia. Patient had Sarah mix applied on cotton pledgets for 15 minutes. Once this was removed a small area was able to be identified which appeared to be bleeding on the nasal septum. This was attempted to be cauterized with silver nitrate. Patient still had a very mild bleed whenever he dabbed at his nose. Patient instructed not to dab at this as it will remove the clot forming. Surgicel with antibiotic ointment was applied to the area of the septum and bleeding has subsided. At this time he will be discharged home in stable condition. He is given an ENT referral as he has had multiple nosebleeds over the past 2 months. Return precautions are reviewed with him including any repeat bleeding. He understands and is agreeable this plan. All questions answered. ED Disposition - Plan for ED Patient: Disposition: Home or Assisted Living Diagnosis: Epistaxis Instructions: ED Epistaxis (Adult) Referrals: Angelito Glynn MD [Primary Care Provider] - Christian Person MD [STAFF PHYSICIAN] - 3-5 Days
[2020-06-05 15:39] VITALS: BP 142/81; PULSE 88; RESP 18; O2SAT 93
[2020-06-05] MEDS: Mixture 30 ML Bottle 5 ML TOPICAL (15:48)
[2020-06-05] MEDS: Silver Nitrate (BKC) 2 EACH TOPICAL (15:49)
--- NOTE | 2020-06-05 16:34 | ED.RN ---
no furtherr drng from rt nares now. at bedside and dc instructions given
== END 2020-06-05 16:35 | disposition home or self-care (01) ==
PROVIDERS: Emergency Provider Emergency Medicine; PCP Family Medicine
DX: R04.0 Epistaxis (principal); I42.9 Cardiomyopathy, unspecified; E11.9 Type 2 diabetes mellitus without complications; I25.10 Atherosclerotic heart disease of native coronary artery without angina pectoris; Z79.82 Long term (current) use of aspirin
CPT/HCPCS: 30901; 99282

== ENCOUNTER 2020-06-07 08:54 | Emergency (ER) | payer MEDICARE, SELFPAY ==
[2020-06-07 08:56] VITALS: BP 122/74; PULSE 104; RESP 17; TEMP 36.2; O2SAT 97; BMI 34.2
[2020-06-07] MEDS: Mixture 30 ML Bottle 5 ML TOPICAL (09:18)
--- NOTE | 2020-06-07 09:21 | ED.VIS.GEN ---
History of Present Illness Chief Complaint: Nosebleed Informant: Patient Onset: Today Context: Sudden Onset Timing: Continuous Quality: brisk oozing Location: right nostril Current Severity: Mild Maximum Severity: Severe Worsened by: nothing Relieved by: holding pressure and placing gauze in nose Associated Symptoms: none except swallowing small amts of blood Narrative: Patient was seen here 2 days ago with the same nosebleed, was treated with topical treatments including Surgicel. Now it has recurred overnight with significant amount of bleeding. He is on aspirin and Plavix, no anticoagulants. He denies having any symptoms of anemia such as weakness, lightheadedness. He tried to get into see otolaryngology but they were not able to see him until later today so they referred him back to the emergency room if he was continuing to bleed which he was. - Past Medical History (1) Atherosclerotic heart disease of [id number] coronary artery without angina pectoris Status: Chronic (2) Hyperlipidemia Status: Chronic (3) Thrombocytopenia Status: Chronic (4) History of coronary artery stent placement Status: Resolved Comment: PCI-MARTINEZ-Mid LAD w/ 3.0 x 16 mm Synergy Stent and MARTINEZ-Ostium OM1 w/ 2.5 x 12 mm Synergy Stent 04/09/20 Past Medical History - Allergies and Home Meds Allergies/Adverse Reactions: Allergies No Known Allergies Allergy (Verified 06/07/20 08:56) Primary Care Physician: Angelito Glynn MD [Primary Care Provider] - Smoking Status: Never smoker Review of Systems General: Denies: Chills, Fever, Sweats Eyes: Denies: Visual changes - bilaterally, Diplopia ENT: Reports: - - Nosebleed. Denies: Rhinorrhea, Sore throat Cardiovascular: Denies: Chest pain, Palpitations Respiratory: Denies: Dyspnea, Cough, Dyspnea on exertion Gastrointestinal: Denies: Abdominal pain, Nausea, Vomiting, Diarrhea, Melena, Hematochezia Genitourinary: Denies: Dysuria, Hematuria, Frequency Musculoskeletal: Denies: Back pain, Extremity Pain Skin: Denies: Rash, Wounds Neurological: Denies: Headache, Weakness, Numbness Physical Exam Vital Signs/Narrative: Vital Signs Temp Pulse Resp BP Pulse Ox 06/07/20 08:56 97.1 F L 104 H 17 122/74 H 97 Inital Vital Signs reviewed: Yes General: Well nourished, Well developed, No Acute Distress Head: Normocephalic, Atraumatic ENT: Moist mucous membranes, No rhinorrhea, - - Blood in posterior oropharynx and tongue without active bleeding. Active mild bleeding with clots present right naris, left is clear. Neck: Supple, Nontender Respiratory: No distress - And no stridor Skin: Normal color, No rash Neurological: Alert, Oriented x3, Cranial nerves II-XII grossly intact, Normal Strength, Normal Sensation, Normal Gait Psychological: Normal affect, Normal Mood Diagnostic/Tx/Re-eval - Medical Decision Making I had the patient evacuate his nasal cavity, I had him inhale about 1 cc of [place] mix followed by a soaked pledget inserted in the nasal cavity. He continued to gradually bleed through this. After 15 minutes I removed it as well as a large clot, he blew his nose again, and we immediately started a short anterior Merusel packing. This provided fairly good hemostasis, he still issues just a little, and on reevaluation the site of bleeding may be right at the external edge of the packing, so I pulled it out about a centimeter and had the patient placed a nasal clip, he is comfortable going home, I checked his platelets since he has a history of thrombocytopenia and they are fine, and he is following up later with ENT. Procedures Procedure(s): Anterior nasal packing. See above. ED Disposition - Plan for ED Patient: Disposition: Home or Assisted Living Diagnosis: Anterior epistaxis Instructions: Nosebleed Referrals: Angelito Glynn MD [Primary Care Provider] - Terry Sánchez MD [STAFF PHYSICIAN] - Keep Guillermina appointment (or colleague)
[2020-06-07 09:39] LABS: Hematocrit 43.5 % (40-54); Hemoglobin 15.4 g/dL (13.0-16.5); Mean Corp Hgb Conc 35.4 g/dL (32-36); Mean Corpuscular Hgb 31.7 pg (27.0-32.0); Mean Corpuscular Volume 89.5 fL (80-94); Mean Platelet Vol. 9.5 fl (6.2-12.0); Platelet Count 171 K/mm3 (150-450); RBC Distribution Width CV 13.4 % (11.6-14.6); RBC Distribution Width SD 43.5 fl (35.1-43.9); Red Blood Count 4.86 M/mm3 (4.6-6.2); White Blood Count 8.4 K/mm3 (4.4-11.0)
--- NOTE | 2020-06-07 11:06 | ED.RN ---
PT NOSE CONTINUES TO SLOWLY OOZE BLOOD
[2020-06-07 11:42] VITALS: BP 136/77; PULSE 72; RESP 15; O2SAT 96
== END 2020-06-07 11:43 | disposition home or self-care (01) ==
PROVIDERS: Emergency Provider Emergency Medicine; PCP Family Medicine
DX: R04.0 Epistaxis (principal); I25.10 Atherosclerotic heart disease of native coronary artery without angina pectoris; E78.5 Hyperlipidemia, unspecified; Z95.5 Presence of coronary angioplasty implant and graft; D69.6 Thrombocytopenia, unspecified; Z79.82 Long term (current) use of aspirin
CPT/HCPCS: 30901; 36415; 85027; 99282; J7030

== ENCOUNTER → 2020-11-13 08:36 | Outpatient (CLI) | payer MEDICARE, SELFPAY ==
[2020-11-13 10:06] LABS: Absolute Neutrophil Count 3.7 X10^3/uL (2.0-7.7); Basophil# 0.05 X10^3/uL; Basophil% 0.8 % (0-1); Eosinophil# 0.27 X10^3/uL; Eosinophils% 4.6 % (0-5); Hematocrit 43.7 % (40-54); Lymphocyte % 23.8 % (19-41); Mean Corp Hgb Conc 34.3 g/dL (32-36); Mean Corpuscular Hgb 31.1 pg (27.0-32.0); Mean Corpuscular Volume 90.5 fL (80-94); Mean Platelet Vol. 9.2 fl (6.2-12.0); Monocyte# 0.47 X10^3/uL; NRBC Flagged by Analyzer 0 % (0-5); Neutrophil # 3.69 X10^3/uL (2.7-7.7); Neutrophil % 62.6 % (47-70); Platelet Count 118 K/mm3 (150-450); RBC Distribution Width CV 13.7 % (11.6-14.6); RBC Distribution Width SD 45.3 fl (35.1-43.9); Red Blood Count 4.83 M/mm3 (4.6-6.2); White Blood Count 5.9 K/mm3 (4.4-11.0)
[2020-11-13 10:35] LABS: Hemoglobin A1c 7.4 % (3.8-5.6)
[2020-11-13 10:39] LABS: ALB/GLOB Ratio 0.9 RATIO (0.9-2.4); AST(SGOT) 15 U/L (15-37); Alanine Aminotransfer ALT/SGPT 20 U/L (16-61); Albumin, Serum 3.4 g/dL (3.2-5.0); Alkaline Phosphatase 43 U/L (45-117); Anion Gap 6 (5-15); BUN 19 mg/dL (7-18); BUN/Creat Ratio 17.4 RATIO (10-20); Calcium,Total 8.8 mg/dL (8.5-10.1); Chloride 106 mmol/L (98-107); Creatinine, Serum 1.09 mg/dL (0.70-1.30); EST Glomerular Filtration Rate 72 mL/min (>60); Est Glom Filt Rate - Afr Amer 88 mL/min (>60); Globulin 3.6 g/dL (2.2-4.2); Glucose 143 mg/dL (74-106); Sodium Level 138 mmol/L (136-145)
[2020-11-13 10:41] LABS: AST(SGOT) 13 U/L (15-37); Alanine Aminotransfer ALT/SGPT 19 U/L (16-61); Albumin, Serum 3.5 g/dL (3.2-5.0); Alkaline Phosphatase 46 U/L (45-117); Bilirubin, Direct 0.35 mg/dL (0.00-0.30); Cholesterol 95 mg/dL (200); Globulin 3.4 g/dL (2.2-4.2); High Density Lipoprotein 24 mg/dL; Protein, Total 6.9 g/dL (6.4-8.2); Triglycerides 261 mg/dL; Very Low Density Lipoprotein 52 mg/dL (5-40)
== END ==
PROVIDERS: Internal Medicine Cardiovascular Disease; PCP Family Medicine; Referring Provider Family Medicine; Visit Provider Family Medicine
DX: E11.9 Type 2 diabetes mellitus without complications (principal); E78.00 Pure hypercholesterolemia, unspecified; E78.5 Hyperlipidemia, unspecified
CPT/HCPCS: 36415; 80053; 80061; 80076; 83036; 85025

== ENCOUNTER → 2021-01-30 07:06 | Outpatient (CLI) | payer MEDICARE, SELFPAY ==
--- NOTE | 2021-01-30 07:19 | US_ITS ---
STUDY: THYROID ULTRASOUND REASON FOR EXAM: Male, 65 years old. Thyroid nodules. TECHNIQUE: Ultrasound evaluation of the thyroid was performed with real-time and static oh-scale imaging. COMPARISON: Comparison is made with prior examination dated 02/16/2020. FINDINGS: RIGHT LOBE: The right lobe of the thyroid gland is enlarged and measures 6.5 cm x 2.7 cm x 2.2 cm. There is a heterogeneous echotexture. There is a 6 mm x 6 mm x 6 mm hypoechoic solid nodule in the midpole. A similar appearing nodule measuring 5 mm x 5 mm x 4 mm is seen in the upper pole. There is evidence of intranodular vascularity. LEFT LOBE: The left lobe of the thyroid gland is enlarged and measures 7.4 cm x 3.7 cm x 3.4 cm. There is a heterogeneous echotexture. There is a 6 mm x 8 mm x 6 mm cyst with septation in the upper pole. There is also evidence of a dominant 3 cm x 2.7 sign by 2.6 cm solid heterogeneous nodule with calcification. This is in the lower pole. This is unchanged. ISTHMUS: The isthmus measures 2 mm. The regional lymph nodes are normal. US/Thyroid IMPRESSION: Enlarged thyroid. Dominant complex nodule in the left lobe of the thyroid. Biopsy is recommended. Electronically Signed: Hemant Perdomo MD at 15:28 EST , Service support ,
== END ==
PROVIDERS: PCP Family Medicine; Referring Provider Surgery; Visit Provider Surgery
DX: E04.1 Nontoxic single thyroid nodule (principal)
CPT/HCPCS: 76536

== ENCOUNTER → 2021-02-04 14:05 | Outpatient (CLI) | payer MEDICARE, SELFPAY ==
[2021-02-04 18:35] LABS: ALB/GLOB Ratio 1.1 RATIO (0.9-2.4); AST(SGOT) 12 U/L (15-37); Alanine Aminotransfer ALT/SGPT 20 U/L (16-61); Albumin, Serum 3.8 g/dL (3.2-5.0); Alkaline Phosphatase 47 U/L (45-117); Anion Gap 8 (5-15); BUN 19 mg/dL (7-18); BUN/Creat Ratio 14.1 RATIO (10-20); Chloride 101 mmol/L (98-107); Creatinine, Serum 1.35 mg/dL (0.70-1.30); EST Glomerular Filtration Rate 57 mL/min (>60); Est Glom Filt Rate - Afr Amer 68 mL/min (>60); Free T3 2.2 pg/mL (2.18-3.98); Globulin 3.6 g/dL (2.2-4.2); Glucose 247 mg/dL (74-106); Potassium 4.2 mmol/L (3.5-5.1); Protein, Total 7.4 g/dL (6.4-8.2); Sodium Level 137 mmol/L (136-145); Thyroid Stim Hormone (TSH) 2.37 uIU/mL (0.358-3.74)
== END ==
PROVIDERS: PCP Family Medicine; Referring Provider Family Medicine; Visit Provider Family Medicine
DX: E04.1 Nontoxic single thyroid nodule (principal); R74.01 Elevation of levels of liver transaminase levels
CPT/HCPCS: 36415; 80053; 84443; 84481

== ENCOUNTER → 2021-10-10 | Outpatient (CLI) | payer MEDICARE, SELFPAY ==
[2021-10-10 10:37] LABS: Anion Gap 6 (5-15); BUN 20 mg/dL (7-18); Calcium,Total 8.9 mg/dL (8.5-10.1); Chloride 105 mmol/L (98-107); Creatinine, Serum 1.25 mg/dL (0.70-1.30); EST Glomerular Filtration Rate 62 mL/min (>60); Est Glom Filt Rate - Afr Amer 75 mL/min (>60); Glucose 150 mg/dL (74-106); Microalbumin,Random Urine 12.6 mg/L (NO RANGE EST.); Potassium 4.3 mmol/L (3.5-5.1); Sodium Level 138 mmol/L (136-145)
== END | disposition home or self-care (01) ==
LOC: MFPLAB 08:29
PROVIDERS: PCP Family Medicine; Referring Provider Family Medicine; Visit Provider Family Medicine
DX: E11.59 Type 2 diabetes mellitus with other circulatory complications (principal)
CPT/HCPCS: 36415; 80048; 82043

== ENCOUNTER → 2022-01-02 | Outpatient (CLI) | payer MEDICARE, SELFPAY ==
[2022-01-02 15:43] LABS: Absolute Lymphocyte Count 1.57 X10^3/uL (0.83-4.51); Absolute Neutrophil Count 3.8 X10^3/uL (2.0-7.7); Basophil# 0.06 X10^3/uL; Basophil% 0.9 % (0-1); Eosinophil# 0.39 X10^3/uL; Hematocrit 46.6 % (40-54); Hemoglobin 16.3 g/dL (13.0-16.5); Lymphocyte # 1.57 X10^3/ul (0.83-4.51); Lymphocyte % 24.3 % (19-41); Mean Corpuscular Hgb 32.9 pg (27.0-32.0); Mean Platelet Vol. 9.6 fl (6.2-12.0); Monocyte# 0.57 X10^3/uL; Monocyte% 8.8 % (0-10); NRBC Flagged by Analyzer 0 % (0-5); Neutrophil # 3.84 X10^3/uL (2.7-7.7); Neutrophil % 59.5 % (47-70); Platelet Count 119 K/mm3 (150-450); RBC Distribution Width CV 13.4 % (11.6-14.6); RBC Distribution Width SD 45.3 fl (35.1-43.9); Red Blood Count 4.96 M/mm3 (4.6-6.2); White Blood Count 6.5 K/mm3 (4.4-11.0)
[2022-01-02 15:57] LABS: Anion Gap 3 (5-15); BUN 19 mg/dL (7-18); BUN/Creat Ratio 15.7 RATIO (10-20); Calcium,Total 9.5 mg/dL (8.5-10.1); Chloride 105 mmol/L (98-107); Creatinine, Serum 1.21 mg/dL (0.70-1.30); EST Glomerular Filtration Rate 64 mL/min (>60); Est Glom Filt Rate - Afr Amer 77 mL/min (>60); Glucose 147 mg/dL (74-106); Potassium 4.6 mmol/L (3.5-5.1); Sodium Level 137 mmol/L (136-145)
== END | disposition home or self-care (01) ==
LOC: MFPLAB 11:48
PROVIDERS: PCP Family Medicine; Referring Provider Family Medicine; Visit Provider Family Medicine
DX: Z01.818 Encounter for other preprocedural examination (principal)
CPT/HCPCS: 36415; 80048; 85025

== ENCOUNTER 2022-04-04 12:00 | Outpatient (RCR) | payer MEDICARE, SELFPAY ==
--- NOTE | 2022-02-13 16:27 | HP.PTEVAL ---
Patient's Visit Information DAVID LEW is a 66 year old M referred to Physical Therapy by Dr. Emre Arnold MD with a diagnosis of R shoulder arthroscopy rotator cuff debridemnent, decompression, Acromial. Date of Evaluation: 02/13/22 Physical Therapist: Richar Tam PT, ATC - Visit Plan Frequency: 2-3x /Week Duration: 4-6 Weeks Plan: Follow protocol in chart. PROM week 1, AROM week 2, resisted ex's week 3. Progress based on pain and ROM - Subjective DOS: 01/30/22. Pt had a rotator cuff debridement, biceps release, and distal acromion excision. Pt reports he was told he could go without his brace after on e week. Pt notes he is still in a lot of pain at this time and has a hard time sleeping at night. Pt reports he has a hard time lifting his shoulder at this time secondary to pain. Pt reports he is retired at this time. 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 Pt is R hand dominant. Pt denies tingling or numbness in his R UE. Pt reports he is limited with all IADL's at this time secondary to R shoulder pain. Pt reports he has not been given any exercises at this time. 3/10 pain at rest, 7/10 pain at worst (when he is trying to sleep) - Pain R shoulder Pain Intensity (Out of 10): 3 Pain Intensity Range: 7 - Objective Neuro: B UE sensation is WNL to light touch. B bicipital reflex= 1/3. ROM: L shoulder flex= 135, abd= 115, ER= 20, IR= WNL; R shoulder flex= 65, abd= 50, IR= moderately limited, ER= 0. MMT: L shoulder flex= 19, abd= 29, ER= 22, IR= 25 #F; R shoulder flex= 0, abd= 4, IR= 5, ER= 8 #F - Balance/Special Test Scores Quick DASH Score: 63.6350 - Goals Goal 1:: Decrease R shoulder pain x 50% to aid with sleep Goal Time Frame: 4-6 Weeks Goal 2:: Increase R shoulder strength x 5-10#F to aid with IADL's Goal Time Frame: 4-6 Weeks Goal 3:: Increase R shoulder flex and abd ROM x 40 degrees to aid with overhead lifting Goal Time Frame: 4-6 Weeks Goal 4:: I with HEP Goal Time Frame: 4-6 Weeks - Rehabilitation Potential Physical Therapy Diagnosis: R shoulder pain, weakness, and limited ROM secondary to R shoulder arthroscopy Rehabilitation Potential: Good - Anticipated Interventions Patient/Client Instruction: Educate patient on: Condition, Plan of Care For the Purpose of:: To improve self management Therapeutic Exercise to Include: Strength training, Endurance training, Flexibilty training, Passive ROM, Active ROM, Scapular Strength/Stabilization For the Purpose of:: To decrease pain, To increase ROM, To improve muscle performance and motor function Cryotherapy (ice pack, ice massage): Yes For the Purpose of:: To decrease pain Thank you for the opportunity to evaluate your patient. For Medicare and Medicare HMO plans, please review the plan of care and approve it. It will need to be FAXED BACK to us at [phone] for Medicare purposes. For Medicare only, by signing this I certify the plan of care. Please let me know if there are questions or concerns regarding this plan of care. Physician Signature: Date:
--- NOTE | 2022-04-04 12:22 | HP.PTDCSUM ---
It has been my pleasure to treat DAVID LEW referred by Dr. Emre Arnold MD, with the diagnosis of R shoulder arthroscopy rotator cuff debridemnent, decompression, Acromial for a total of 16 visit(s). Discharge Date: Please see the following information for a summary of their discharge status. Subjective: Pt reports he still feels weak, but notices much improvements R shoulder Pain Intensity (Out of 10): 2 % Improvement: 65 Objective/Function: R shoulder pain ranges from 2-5/10. R shoulder ROM: flex= 155, abd= 120 degrees. R shoulder MMT: flex= 11, abd= 22, ER= 17, IR= 21 #F. Pt is I with HEP Goal 1:: Decrease R shoulder pain x 50% to aid with sleep Goal Progress: Goal Met Goal 2:: Increase R shoulder strength x 5-10#F to aid with IADL's Goal Progress: Goal Met Goal 3:: Increase R shoulder flex and abd ROM x 40 degrees to aid with overhead lifting Goal Progress: Goal Met Goal 4:: I with HEP Goal Progress: Goal Met Plan: Discharge to HEP If there are questions or concerns regarding this patient's physical therapy, please feel free to call me at [phone]. Thank you for the referral of this patient. Sincerely, Richar Tam, PT, ATC Balance/Gait/Functional tests - Balance/Special Test Scores Quick DASH Score: [phone]
== END 2022-04-04 19:00 | disposition home or self-care (01) ==
LOC: PT 12:00
PROVIDERS: PCP Family Medicine; Referring Provider Orthopaedic Surgery; Visit Provider Orthopaedic Surgery
DX: M75.111 Incomplete rotator cuff tear or rupture of right shoulder, not specified as traumatic (principal)
CPT/HCPCS: 97110; 97140; 97161; 97164

== ENCOUNTER → 2022-07-03 | Outpatient (CLI) | payer MEDICARE, SELFPAY ==
[2022-07-03 11:05] LABS: BUN 18 mg/dL (7-18); Glucose 194 mg/dL (74-106)
[2022-07-03 11:06] LABS: Anion Gap 6 (5-15); Chloride 107 mmol/L (98-107); EST Glomerular Filtration Rate 64 mL/min (>60); Est Glom Filt Rate - Afr Amer 78 mL/min (>60); Microalbumin,Random Urine 5.2 mg/L (NO RANGE EST.); Microalbumin:Creatinine Ratio 8.1 mg/g CRE (<30 mg/g CRE); Potassium 4.4 mmol/L (3.5-5.1); Sodium Level 142 mmol/L (136-145)
== END | disposition home or self-care (01) ==
LOC: MTLAB 08:44
PROVIDERS: PCP Family Medicine; Referring Provider Family Medicine; Visit Provider Family Medicine
DX: E11.9 Type 2 diabetes mellitus without complications (principal)
CPT/HCPCS: 36415; 80048; 82043; 82570

== ENCOUNTER → 2022-12-29 | Outpatient (CLI) | payer MEDICARE, SELFPAY ==
--- NOTE | 2022-12-29 14:02 | US_ITS ---
STUDY: THYROID ULTRASOUND REASON FOR EXAM: Male, 67 years old. thyroid nodule TECHNIQUE: Ultrasound evaluation of the thyroid was performed with real-time and static oh-scale imaging. COMPARISON: None. FINDINGS: RIGHT LOBE: The right lobe of the thyroid gland measures 7.7 x 2.7 x 3.1 cm. There is a heterogeneous echotexture. Within the mid upper pole of the right thyroid lobe there is a hypoechoic nodule measuring 0.5 x 0.7 x 0.4 cm with peripheral nodular flow and regular margins. LEFT LOBE: The left lobe of the thyroid gland measures 7.9 x 2.8 x 3.4 cm. There is a heterogeneous echotexture. Within the left thyroid lobe there is a large complex cystic lesion measuring 2.0 x 2.6 x 2.2 cm. A second lesion with peripheral calcification seen within the middle pole measuring 0.7 x 0.8 x 0.7 cm. ISTHMUS: The isthmus measures 3.0 mm. The regional lymph nodes are normal. US/Thyroid IMPRESSION: Enlarged thyroid was stable bilateral thyroid lobe nodules. No new nodules are identified. Electronically Signed: Marleni Peguero MD at 0:05 EDT ,
== END | disposition home or self-care (01) ==
LOC: US 14:02
PROVIDERS: PCP Family Medicine; Referring Provider Surgery; Visit Provider Surgery
DX: E04.1 Nontoxic single thyroid nodule (principal)
CPT/HCPCS: 76536

== ENCOUNTER → 2023-01-16 | Outpatient (CLI) | payer MEDICARE, SELFPAY ==
[2023-01-18 13:07] LABS: Lyme Scn Total Ab w/Rflx Negative (Negative)
== END | disposition home or self-care (01) ==
LOC: MFPLAB 15:12
PROVIDERS: Family Medicine; PCP Family Medicine; Visit Provider Family Medicine
DX: A69.20 Lyme disease, unspecified (principal)
CPT/HCPCS: 36415; 86618

== ENCOUNTER → 2023-04-15 | Outpatient (CLI) | payer MEDICARE, SELFPAY ==
--- OUTSIDE RECORDS SUMMARY | 2023-04-15 11:14 | XMS RPT_ITS | CCD ---
Author Name Unknown Address [address] [place] [address] Organization [facility] Care Team Providers Care Loan Administrator Name Role Phone Zenobia MCMAHON, Jonathan Medina Unavailable Evan KIRK, Asmita Mcguire Unavailable Medications Current Medications Medication Drug Class(es) Dates Sig (Normalized) Sig (Original) acetaminophen 325 mg / oxyCODONE hydrochloride 5 mg oral tablet (1 source) Opioid Agonist Start: 01-25-2018 End: 01-30-2018 take 1 tablet by mouth every six hours as needed for pain PERCOCET 5-325 MG TABS Take 1 tab by mouth every 6hrs as needed for pain OXYCODONE-ACETAMINO PHEN [id number] Asmita Gordon PA-C Completed/Discontinued Medications Medication Drug Class(es) Dates Sig (Normalized) Sig (Original) acetaminophen 500 mg oral tablet (4 sources) Start: 06-03-2016 TYLENOL EXTRA STRENGTH 500 MG TABS One per day for pain, possibly two to three times per week. ACETAMINOPHEN [id number] Asmita Gordon PA-C Problems Active Problems Problem Classification Problem Date Documented Da te Episodic/Chronic Diabetes mellitus with complications (4 sources) Type 2 diabetes mellitus; Translations: [Type 2 diabetes mellitus with diabetic neuropathy, unspecified] Onset: 07-09-2015 07-09-2015 Chronic Osteoarthritis (12 sources) Arthritis of wrist; Translations: [Primary osteoarthritis, unspecified wrist] Onset: 01-06-2017 10-19-2017 Chronic Regional enteritis and ulcerative colitis (4 sources) Ulcerative colitis; Translations: [Ulcerative colitis, unspecified, without complications] Onset: 01-06-2017 01-06-2017 Chronic Past or Other Problems Problem Classification Problem Date Documented Date Episodic/Chronic Acquired foot deformities (8 sources) Talipes planus; Translations: [Flat foot [pes planus] (acquired), left foot] Onset: 6 05-14-2015 Episodic Other aftercare (4 sources) Follow-up status; Translations: [Encounter for other orthopedic aftercare] Onset: 7 01-06-2017 Episodic Other connective tissue disease (4 sources) Tibialis posterior tendinitis ; Translations: [Posterior tibial tendinitis, left leg] Onset: 6 05-14-2015 Episodic Other connective tissue disease (4 sources) Plantar fasciitis; Translations: [Plantar fascial fibromatosis] Onset: 6 05-14-2015 Episodic Other diseases of veins and lymphatics (4 sources) Venous insufficiency of leg; Translations: [Venous insufficiency (chronic) (peripheral)] Onset: 7 01-06-2017 Episodic Sprains and strains (4 sources) Complete tear, thumb, metacarpophalangeal joint, radial collateral ligament; Translations: [Traumatic rupture of right radial collateral ligament, initial encounter] Onset: 8 10-19-2017 Episodic Unclassified (4 sources) Problem Results Test Name Value Interpretation Reference Range Facil ity Vital Signs Date Time Vital Sign Value Performing Clinician Facility NEGATED: Highlighted [id number] 07:53-0500 Body height 177.8 cm Loraine Ever [facility] Work Phone: NEGATED: Highlighted [id number] 07:53-0500 Body height 178 cm Loraine Curtis [facility] Work Phone: NEGATED: Highlighted [id number] 07:53-0500 Body mass index (BMI) [Ratio] 37.15 kg/m2 Loraine Curtis [facility] Work Phone: NEGATED: Highlighted [id number] 07:53-0500 Body weight 117.03 kg Loraine Curtis [facility] Work Phone: NEGATED: Highlighted [id number] 07:53-0500 Body weight 117 kg Loraine Curtis LPN [facility] Work Phone: NEGATED: Highlighted [id number] 07:53-0500 Diastolic blood pressure 78 mm[Hg] Loraine Curtis LPN [facility] Work Phone: NEGATED: Highlighted [id number] 07:53-0500 Heart rate 65 /min Loraine Curtis [facility] Work Phone: NEGATED: Highlighted [id number] 07:53-0500 Systolic blood pressure 126 mm[Hg] Loraine Curtis METAL CASTER [facility] Work Phone: NEGATED: Highlighted [id number] 09:35-0500 Body height 177.8 cm [facility] Work Phone: NEGATED: Highlighted [id number] 09:35-0500 Body height 178 cm [facility] Work Phone: NEGATED: Highlighted [id number] 09:35-0500 Body mass index (BMI) [Ratio] 37.15 kg/m2 [facility] Work Phone: NEGATED: Highlighted [id number] 09:35-0500 Body temperature 98 [degF] [facility] Work Phone: NEGATED: Highlighted [id number] 09:35-0500 Body temperature 98.06 [degF] [facility] Work Phone: NEGATED: Highlighted [id number] 09:35-0500 Body weight 117.03 kg [facility] Work Phone: NEGATED: Highlighted [id number] 09:35-0500 Body weight 117 kg Sanjana [facility] Work Phone: NEGATED: Highlighted [id number] 09:35-0500 Diastolic blood pressure 77 mm[Hg] Sanjana Malave [facility] Work Phone: NEGATED: Highlighted [id number] 09:35-0500 Heart rate 64 /min Sanjana Malave [facility] Work Phone: NEGATED: Highlighted [id number] 09:35-0500 Systolic blood pressure 125 mm[Hg] Sanjana Malave [facility] Work Phone: NEGATED: Highlighted [id number] 13:57-0400 Body height 177.8 cm [facility] Work Phone: NEGATED: Highlighted [id number] 13:57-0400 Body height 178 cm Mira [facility] Work Phone: NEGATED: Highlighted [id number] 13:57-0400 Body mass index (BMI) [Ratio] 37.15 kg/m2 [facility] Work Phone: NEGATED: Highlighted [id number] 13:57-0400 Body weight 117.03 kg Mira [facility] Work Phone: NEGATED: Highlighted [id number] 13:57-0400 Body weight 117 kg [facility]ira [facility] Work Phone: NEGATED: Highlighted [id number] 13:57-0400 Diastolic blood pressure 71 mm[Hg] [facility]ira [facility] Work Phone: NEGATED: Highlighted [id number] 13:57-0400 Heart rate 80 /min [facility] Work Phone: NEGATED: Highlighted [id number] 13:57-0400 Systolic blood pressure 107 mm[Hg] Mira Shaffer [facility] Work Phone: NEGATED: Highlighted [id number] 09:18-0400 Body height 177.8 cm Jennifer Mac [facility] Work Phone: NEGATED: Highlighted [id number] 09:18-0400 Body height 178 cm Jennifer Mac [facility] Work Phone: NEGATED: Highlighted [id number] 09:18-0400 Body mass index (BMI) [Ratio] 37.15 kg/m2 Jennifer Mac [facility] Work Phone: NEGATED: Highlighted [id number] 09:18-0400 Body weight 117.03 kg Jennifer Mac [facility] Work Phone: NEGATED: Highlighted [id number] 09:18-0400 Body weight 117 kg Jennifer Mac [facility] Work Phone: NEGATED: Highlighted [id number] 09:18-0400 Diastolic blood pressure 78 mm[Hg] Jennifer Mac [facility] Work Phone: NEGATED: Highlighted [id number] 09:18-0400 Heart rate 62 /min Jennifer Mac [facility] Work Phone: NEGATED: Highlighted [id number] 09:18-0400 Systolic blood pressure 118 mm[Hg] Jennifer Mac [facility] Work Phone: Encounters Encounter Date Encounter Type Care Provider Facility Start: 01-25-2018 End: 01-25-2018 Ot evaluation Asmita Gordon PA-C Work Phone: [facility] Work Phone: Procedures Date Procedure Procedure Detail Performing Clinician Start: 01-25-2018 End: 01-25-2018 BP scrn perf rec interval Asmita C DiBartolomeo PA-C Work Phone: Start: 01-25-2018 End: 01-25-2018 Calc BMI abv up sundar f/u Asmita Shayla DiBartolomeo PA-C Work Phone: Start: 01-25-2018 End: 01-25-2018 Current tobacco non-user cad cap copd pv dm Asmita C DiBartolomeo PA-C Work Phone: Start: 01-25-2018 End: 01-25-2018 Docrev cur meds by tiffanie yanez Asmita Shayla DiBartolomeo PA-C Work Phone: Start: 01-25-2018 End: 01-25-2018 Patient encounter procedure Asmita Mcguire DiBartolomeo PA-C Work Phone: Start: 01-25-2018 End: 01-25-2018 Pos pain assess no f/u doc Asmita C DiBartolomeo PA-C Work Phone: Start: 01-25-2018 End: 01-25-2018 WHFO, rigid w/o joints Asmita Shayla DiBartolo meo PA-C Work Phone: Start: 11-16-2017 End: 11-16-2017 Arthrocentesis aspir&/inj small jt/bursa w/o us Jonathan Fregoso MD Work Phone: Start: 11-16-2017 End: 11-16-2017 Betamethasone acet&sod phosp Jonathan Fregoso MD Work Phone: Start: 11-16-2017 End: 11-16-2017 BP scrn perf rec interval Jonathan Fregoso MD Work Phone: Start: 11-16-2017 End: 11-16-2017 Calc BMI out nrm sundar nof/u Jonathan Fregoso MD Work Phone: Start: 11-16-2017 End: 11-16-2017 Current tobacco non-user cad cap copd pv dm Jonathan Fregoso MD Work Phone: Start: 11-16-2017 End: 11-16-2017 Docrev cur meds by tiffanie Fregoso MD Work Phone: Start: 11-16-2017 End: 11-16-2017 Pain doc pos and plan Jonathan Fregoso MD Work Phone: Start: 11-16-2017 End: 11-16-2017 Patient encounter procedure Jonathan Fregoso MD Work Phone: Start: 10-19-2017 End: 10-19-2017 Arthrocentesis aspir&/inj interm jt/burs w/o us Jonathan Fregoso MD Work Phone: Start: 10-19-2017 End: 10-19-2017 Betamethasone acet&sod phosp Jonathan Fregoso MD Work Phone: Start: 10-19-2017 End: 10-19-2017 Radex hand minimum 3 views Jonathan Fregoso MD Work Phone: NEGATED: Highlighted rowStart: 04-05-2018 End: 04-05-2018 Documentation of current medications Loraine Curtis LPN NEGATED: Highlighted rowStart: 01-25-2018 End: 01-25-2018 Documentation of current medications Sanjana Malave NEGATED: Highlighted rowStart: 11-16-2017 End: 11-16-2017 Documentation of current medications Mira Shaffer NEGATED: Highlighted rowStart: 10-19-2017 End: 10-19-2017 Documentation of current medications Jennifer Mac LPN Plan of Treatment Date Care Activity Detail Author Start: 04-05-2018 End: 04-05-2018 Patient encounter procedure Appointment [facility] Work Phone: Start: 03-01-2018 End: 03-01-2018 Patient encounter procedure Appointment [facility] Work Phone: Start: 01-25-2018 End: 01-25-2018 Patient encounter procedure Appoint[facility] Work Phone: Start: 01-25-2018 End: 01-25-2018 Radex hand minimum 3 views XR HAND 3+ VWS-RT [facility] Work Phone: Start: 12-14-2017 End: 12-14-2017 Patient encounter procedure Appointment [facility] Work Phone: Start: 11-16-2017 End: 11-16-2017 Patient encounter procedure Appointment [facility] Work Phone: Start: 11-16-2017 End: 11-16-2017 Patient encounter procedure Appointment [facility] Work Phone: Start: 10-19-2017 End: 10-19-2017 Patient encounter procedure Appointment [facility] Work Phone: Social History Date Type Detail Facility Start: 10-19-2017 End: 04-05-2018 Assertion Unknown if ever smoked [facility] Work Phone: Evaluation note Note Date & Type Note Facility Evaluation note There may be informa tion available, but it has not been provided by the sender. [facility] Work Phone: Instructions Note Date & Type Note Facility [facility] Work Phone: Instructions Note Date & Type Note Facility Instructions No information available. Evely[facility] Work Phone: Instructions Note Date & Type Note Facility [facility] Work Phone: Instructions Note Date & Type Note Facility [facility] Work Phone: Summary Purpose Family History No Family History Records FoundThere may be information available, but it has not been provided by the sender.There may be information available, but it has not been provided by the sender.There may be information available, but it has not been provided by the sender.There may be information available, but it has not been provided by the sender. Advance Directives No Advanced Directives Records FoundThere may be information available, but it has not been provided by the sender.There may be information available, but it has not been provided by the sender.There may be information available, but it has not been provided by the sender.There may be information available, but it has not been provided by the sender. 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 on 01/12/2018 Preliminary chief co mplaint data, not yet signed by the author as of Chief Complaint Description Start Date right thumb finger post Righ t thumb CMC arthroplasty with FCR tendoninterposition first dorsal compartment tenosynovectomy and partial trapezoid excision. 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 on 01/12/2018 Reason For Visit Description Start Date Postop - subsequent visit Preliminary reason f or visit data, not yet signed by the author as of right thumb finger post Righ t thumb CMC arthroplasty with FCR tendoninterposition first dorsal compartment tenosynovectomy and partial trapezoid excision. on 01/12/2018 FOR RECORDS PERTAINING TO PATIENTS WHO ARE OR HAVE BEEN ENROLLED IN A CHEMICAL DEPENDENCY/SUBSTANCEABUSE PROGRAM, SOME INFORMATION MAY BE OMITTED. This clinical summary was aggregated from multiple sources. Caution should be exercised in using it in the provision of clinical care. This summary normalizes information from multiple sources, and as a consequence, information in this document may materially change the coding, format and clinical context of patient data. In addition, data may be omitted in some cases. CLINICAL DECISIONS SHOULD BE BASED ON THE PRIMARY CLINICAL RECORDS. [employer] provides no warranty or guarantee of the accuracy or completeness of information in this document.
[2023-04-15 12:52] LABS: Anion Gap 6 (5-15); BUN 22 mg/dL (7-18); BUN/Creat Ratio 17.7 RATIO (10-20); Calcium,Total 9.3 mg/dL (8.5-10.1); Chloride 109 mmol/L (98-107); Cholesterol 105 mg/dL (200); Creatinine, Serum 1.24 mg/dL (0.70-1.30); EST Glomerular Filtration Rate 62 mL/min (>60); Est Glom Filt Rate - Afr Amer 75 mL/min (>60); Glucose 118 mg/dL (74-106); High Density Lipoprotein 26 mg/dL; PSA,Total - Annual Screen 1.57 ng/mL (0.00-4.00); Potassium 4.3 mmol/L (3.5-5.1); Sodium Level 142 mmol/L (136-145); Triglycerides 149 mg/dL; Very Low Density Lipoprotein 30 mg/dL (5-40)
== END | disposition home or self-care (01) ==
LOC: MFPLAB 10:30
PROVIDERS: PCP Family Medicine; Visit Provider Family Medicine
DX: E11.9 Type 2 diabetes mellitus without complications (principal); Z12.5 Encounter for screening for malignant neoplasm of prostate
CPT/HCPCS: 36415; 80048; 80061; 84153; G0103

== ENCOUNTER → 2023-10-15 | Outpatient (CLI) | payer MEDICARE, SELFPAY ==
[2023-10-15 12:51] LABS: Anion Gap 8 (5-15); BUN 23 mg/dL (7-18); BUN/Creat Ratio 15.8 RATIO (10-20); Calcium,Total 9.3 mg/dL (8.5-10.1); Chloride 105 mmol/L (98-107); Creatinine, Serum 1.46 mg/dL (0.70-1.30); EST Glomerular Filtration Rate 51 mL/min (>60); Est Glom Filt Rate - Afr Amer 62 mL/min (>60); Glucose 142 mg/dL (74-106); Potassium 4.9 mmol/L (3.5-5.1); Sodium Level 138 mmol/L (136-145)
== END | disposition home or self-care (01) ==
LOC: MFPLAB 09:31
PROVIDERS: PCP Family Medicine; Visit Provider Family Medicine
DX: I10 Essential (primary) hypertension (principal)
CPT/HCPCS: 36415; 80048

== ENCOUNTER 2023-10-23 08:50 | Emergency (ER) | payer MEDICARE, SELFPAY ==
[2023-10-23 08:51] VITALS: BP 152/133; PULSE 72; RESP 18; TEMP 36.6; O2SAT 100
--- NOTE | 2023-10-23 08:55 | RAD_ITS ---
STUDY: X-RAY - RIGHT KNEE REASON FOR EXAM: Male, 68 years old. Fall and knee pain TECHNIQUE: 4 view(s) of the knee. COMPARISON: Comparison is made with prior study dated March 13, 2009. FINDINGS: Normal visualized distal femur. Suspect a nondisplaced fracture in the proximal posterior aspect of the tibia medially. Normal proximal tibiofibular articulation. The patient is status post total knee replacement. There are atherosclerotic calcifications. Joint effusion. RAD/Knee 4 or More Views IMPRESSION: Status post total knee replacement. Suspect a nondisplaced fracture along the posterior medial aspect of the proximal tibia. Joint effusion. Electronically Signed: Hemant Perdomo MD at 9:28 EDT ,
--- NOTE | 2023-10-23 09:06 | EDS_ITS ---
HPI History of Present Illness HPI Narrative: 68-year-old male history of CAD with 2 stents, diabetes and bilateral knee replacements I think he had the right done 3 different times. Was going out of his house and his garage slipped fell down about 3 steps injuring his right knee. Denies any other injuries. Did not hit his head. No LOC. Denies any back pain. He went to play golf after he fell he said he could not really bear weight on his leg. Chief Complaint: Lower Extremity Injury Informant: patient and spouse/S.O. Occured/Mechanism Mechanism/Context: Yes injury and Yes blunt trauma Onset/Context/Timing Onset: Today and Hours Context: Sudden Onset Timing: Continuous Quality of Pain: Sharp Current Severity: Moderate Maximum Severity: Moderate Narrative Narrative: 68-year-old male with prior knee replacement slipped and fell today on his steps at home going into his garage. Complaining of right knee pain. Prior similar symptoms: No Recent Illness/Hospitalization: No PFSH PFSH Medical History Thyroid nodule Atherosclerotic heart disease of [place] coronary artery without angina pectoris Erectile dysfunction Gout Type 2 diabetes mellitus Hyperlipidemia Acute superficial venous thrombosis of right lower extremity Obesity Pulmonary nodule Ulcerative colitis Thrombocytopenia GERD (gastroesophageal reflux disease) Restless leg syndrome IBS (irritable bowel syndrome) Home Medications ?Medication ?Instructions ?Recorded ?Last Taken ?Type allopurinol 300 mg tablet 300 mg PO DAILY 03/01/20 Unknown History balsalazide 750 mg capsule 2,250 mg PO BID 03/01/20 Unknown History omeprazole 20 mg capsule,delayed 20 mg PO DAILY 03/01/20 Unknown History release sildenafil 50 mg tablet 50 mg PO DAILY PRN Not Specified 03/20/20 Unknown Hi story aspirin 81 mg tablet,delayed 81 mg PO Q OTHER DAY started for 05/25/20 Unknown History release (Adult Low Dose Aspirin) heart cath sitagliptin phosphate 50 1 tab PO ONCE 12/11/20 Unknown History mg-metformin 1,000 mg tablet (Janumet) atorvastatin 20 mg tablet 20 mg PO QHS #90 tabs 10/03/21 Unknown Rx lisinopril 5 mg tablet 5 mg PO DAILY #90 tabs 10/03/21 Unknown Rx dulaglutide 0.75 mg/0.5 mL 0.75 mg subcut QWEEK 10/02/22 Unknown History subcutaneous pen injector (Trulicity) empagliflozin 25 mg tablet 25 mg PO DAILY 10/02/22 Unknown History (Jardiance) Allergy/AdvReac Type Severity Reaction Status Date / Time No Known Allergies Allergy Verified 10/23/23 08:51 Family History Father Diabetes Heart disease CAD (coronary artery disease) CABG x 3 Grandfather Colon cancer Heart disease Mother Alzheimer disease Grandmother Diabetes Surgical History History of coronary artery stent placement (04/09/20) History of surgery on wrist History of shoulder surgery History of cholecystectomy History of cataract extraction History of revision of total knee arthroplasty History of bilateral knee replacement Social History Smoking Status: Never smoker alcohol intake: current alcohol intake frequency: holidays/special occasions only substance use type: does not use caffeine: Yes (very little) ROS ROS ED ROS Narrative Denies recent illness other than he has shingles on his right chest wall. Constitutional Constitutional ED: Denies chills or fever(s) Eyes Eyes: Denies blurry vision ENT ENT ED: Denies ear pain Cardiovascular Cardiovascular: Denies chest pain Respiratory/Chest Respiratory/Chest: Denies cough Gastrointestinal Gastrointestinal: Denies abdominal pain Genitourinary Genitourinary ED: Denies dysuria Musculoskeletal Musculoskeletal: Denies arthralgias Integumentary Denies abscess Neurologic Neurologic: Denies headache(s) Psychiatric Psychiatric: Denies anxiety Endocrine Endocrinology: Denies polydipsia Hematologic/Lymphatic Hematologic/Lymphatic: Denies easy bleeding Allergic/Immunologic Allergic/Immunologic ED: Denies mouth swelling, tongue swelling or urticaria EXAM Physical Exam Narrative Exam Narrative: 68-year-old male vital signs stable afebrile. Sitting upright in bed. at bedside. H EENT exam unremarkable atraumatic. Neck nontender. Back and spine nontender. Lungs clear. Heart regular rhythm no murmur. Chest wall and ribs nontender. Shingles rash right lateral rib cage. Abdomen soft nontender. 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 No nontender. Left leg nontender. Well-healed left total knee incision. Normal dorsi plantarflexion. Right hip ankle and foot nontender. Neurovascularly intact. Right knee tenderness. Limited range of motion. Pain with range of motion. No significant swelling. No bruising. Patient is awake and alert. Answering questions following commands. GCS of 15. Const Vital Signs: 10/23/23 08:51 10/23/23 11:58 Temperature 98 F Temperature Source Temporal Pulse Rate 72 59 L Respiratory Rate 18 16 Blood Pressure 152/133 H 119/79 Blood Pressure Mean 139 92 Pulse Ox 100 96 Oxygen Delivery Method Room Air Room Air Positive well nourished and well developed; Negative for cachectic, contractures or unkempt General Appearance ED: well developed and NAD; Negative for unkempt, cachectic or contractures Nutritional Appearance: Negative for cachectic HEENT Reports moist mucous membranes normocephalic and atraumatic; Negative for trauma or tenderness Eyes General Eye ED: Negative for other Neck full ROM and supple Thyroid: Negative for tender Lymph Lymphatic: Negative for other Chest Wall inspection of chest normal and palpation of chest normal Chest Narrative: Shingles rash right lateral chest wall Chest: Negative for other Resp normal respiratory effort, no retractions and clear to auscultation bilaterally Effort and Inspection: Negative for pain with movement Auscultation: Negative for rales, rhonchi, wheezes or diminished lung sounds Cardio regular rate, regular rhythm, S1 normal heart sound, S2 normal heart sound and no murmurs Rate: Negative for bradycardia or tachycardic Rhythm: Negative for abnormal rhythm Bruits: Negative for other GI non-tender, non-distended and no masses Inspection: Negative for abdominal distention Auscultation: normoactive bowel sounds Palpation: soft; Negative for tender, guarding or rebound tenderness present Back/Spine no CVA tenderness General Back: Negative for CVA tenderness Cervical Spine: Negative for cervical spine tenderness Thoracic Spine / Upper Back: Negative for thoracic spinal tenderness Lumbar Spine / Lower Back: Negative for lumbar spinal tenderness Extremity normal to inspection and full ROM Extremity Narrative: Except right knee. Tender along the distal aspect of the thigh just above the knee. Also has medial knee joint. No gross bony deformity. Well-healed surgical scar. Right ankle and foot are nontender. Normal dorsi plantarflexion. Normal DP pulse and touch sensation. General Extremety ED: Yes weight-bearing difficulty General Extremity: weight-bearing difficulty Neuro oriented x3, CN's II-XII intact bilaterally and moves all extremities Sensorium / Orientation: alert, oriented to person, oriented to place and oriented to time Motor Exam: strength 5/5 throughout Psych mental status grossly normal Appearance: Negative for unkempt Speech: No other Mood & Affect: Negative for anxious Skin no wounds Lesions: no lesions Rashes: no rashes Trauma: Negative for abrasion or laceration MDM MDM MDM Narrative Medical decision making narrative: 68-year-old male fell going into his garage down about 3 steps injuring his right knee. He has had a prior right knee prosthesis. He does not have any other injuries at this time. We are obtaining a knee x-ray. He currently did not want a thing for pain. Repeat exam unchanged. Patient I discussed his plain x-rays and his CT. Schedule being discharged home and follow-up with his orthopedic doctor. Radiography Diagnostic Testing: Clinical Impression(s) from Imaging Studies Knee X-Ray 10/23/23 08:55 IMPRESSION: Status post total knee replacement. Suspect a nondisplaced fracture along the posterior medial aspect of the proximal tibia. Joint effusion. Electronically Signed: Hemant Perdomo MD at 9:28 EDT , Lower Extremity CT 10/23/23 10:37 IMPRESSION: Right knee replacement. Joint effusion. No fracture seen. Electronically Signed: Syed Smith MD at 12:55 EDT , Right knee x-ray, 4 views, interpreted by myself and the radiologist shows a effusion. Total knee joint hardware looks good. I do not see a specific fracture the radiologist was concerned due to the joint effusion. CAT scan of the knee was obtained and it showed the same effusion but no fracture. Discharge Plan Triage Chief Complaint: Lower Extremity Injury ED Provider: Rajiv Pearson Dx/Rx/DC Orders Clinical Impression: Fall, Sprain of knee, History of total right knee replacement Instructions: ED Knee Sprain Prescriptions: No Action allopurinol 300 mg tablet 300 mg PO DAILY balsalazide 750 mg capsule 2,250 mg PO BID omeprazole 20 mg capsule,delayed release(DR/EC) 20 mg PO DAILY sildenafil 50 mg tablet 50 mg PO DAILY PRN (Reason: Not Specified) Rx Instructions: administer 30 minutes to 4 hours before activity Janumet 50-1,000 mg tablet 1 tab PO ONCE atorvastatin 20 mg tablet 20 mg PO QHS Qty: 90 3RF lisinopril 5 mg tablet 5 mg PO DAILY Qty: 90 3RF Jardiance 25 mg tablet 25 mg PO DAILY Trulicity 0.75 mg/0.5 mL pen injector 0.75 mg subcut QWEEK aspirin [Adult Low Dose Aspirin] 81 mg tablet,delayed release (DR/EC) 81 mg PO Q OTHER DAY Primary Care Provider: Juan Manuel Maguire Referrals: Juan Manuel Maguire MD [Primary Care Provider] - Activity Restrictions/Additional Instructions: Ice to your knee. To decrease pain and swelling. You have swelling in your knee joint. There is no fracture seen. The orthopedic hardware looks good. If not improving follow-up with your orthopedic physician it did your knee and have him reevaluate you. Print Language: French Disposition Disposition: Home, Self Care
[2023-10-23 09:21] VITALS: BMI 34.7
--- NOTE | 2023-10-23 10:37 | CT_ITS ---
STUDY: CT RIGHT KNEE WITHOUT CONTRAST REASON FOR EXAM: Male, 68 years old. Knee injury , fracture RADIATION DOSAGE (If Supplied By Facility): CTDIvol = ( 15.63 ) mGy, DLP = ( 752.06 ) mGycm TECHNIQUE: Transaxial CT imaging of the knee was performed. Coronal and sagittal images were reformatted. Individualized dose optimization techniques were used for this CT. COMPARISON: X-ray FINDINGS: There is demineralization of the medial femoral condyle and medial tibial plateau. There is demineralization of the lateral femoral condyle and lateral tibial plateau. There is total joint replacement. Alignment is near-anatomic. Normal proximal tibiofibular articulation. There is moderate joint effusion. The quadriceps tendon is grossly normal. The patellar tendon is grossly normal. There are vascular calcifications. The remainder of the soft tissues are intact. CT/Extremity Lower without Contra IMPRESSION: Right knee replacement. Joint effusion. No fracture seen. Electronically Signed: Syed Smith MD at 12:55 EDT ,
[2023-10-23 11:58] VITALS: BP 119/79; PULSE 59; RESP 16; O2SAT 96
[2023-10-23 13:30] VITALS: BP 146/76; PULSE 78; RESP 16; TEMP 37.1; O2SAT 100
== END 2023-10-23 13:31 | disposition home or self-care (01) ==
PROVIDERS: Emergency Provider Emergency Medicine; PCP Family Medicine; Visit Provider Emergency Medicine
DX: S83.91XA Sprain of unspecified site of right knee, initial encounter (principal); E11.9 Type 2 diabetes mellitus without complications; Z79.4 Long term (current) use of insulin; I25.10 Atherosclerotic heart disease of native coronary artery without angina pectoris; E78.5 Hyperlipidemia, unspecified; W10.8XXA Fall (on) (from) other stairs and steps, initial encounter; Y92.015 Private garage of single-family (private) house as the place of occurrence of the external cause; N52.9 Male erectile dysfunction, unspecified; M10.9 Gout, unspecified; E66.9 Obesity, unspecified; K21.9 Gastro-esophageal reflux disease without esophagitis; D69.6 Thrombocytopenia, unspecified; G25.81 Restless legs syndrome; K58.9 Irritable bowel syndrome, unspecified; Z79.899 Other long term (current) drug therapy; Z79.82 Long term (current) use of aspirin; Z79.84 Long term (current) use of oral hypoglycemic drugs; Z96.651 Presence of right artificial knee joint; Z95.5 Presence of coronary angioplasty implant and graft
CPT/HCPCS: 73564; 73700; 99282

== ENCOUNTER 2023-11-18 09:30 | Outpatient (RCR) | payer MEDICARE, SELFPAY ==
--- NOTE | 2023-10-28 13:03 | HP.PTEVAL ---
Patient's Visit Information Visit Information Visit Information: DAVID LEW is a 68 year old M referred to Physical Therapy by Dr. John Leone DO with a diagnosis of R MCL sprain. Date of Evaluation: 10/28/23 Physical Therapist: Richar Tam, PT, ATC Visit Plan Frequency: 2-3x /Week Duration: 4-6 Weeks Plan: R knee strengthening, balance and proprio, core stab ex's, nustep, and HEP Subjective Subjective: Pt reports he fell 5 days ago and landed with his R knee flexed all the way to his foot hitting his glute. Pt reports he had his R knee replaced in 2008. Pt reports he was in severe pain when he fell. He was not able to bear weight for the first couple days when this happened, but is not able to bear more than 10-15% of his full body weight. Pt reports he went to the doctor after his fall and was diagnosed with torn scar tissue and a partially torn MCL. Pt had an xray and cat scan which revealed all the structural components of his R TKA are intact and in place. Pt denies tingling or numbness in R LE. Pt reports sleep difficulty secondary to pain. Pt reports he has 3 stairs into his house that he has to negotiate one stair at a time. 2/10 pain while sitting here at rest, 8/10 pain at worst (when his knee vero inward or he transitions from sit to stand) Pain R knee: Pain Intensity (Out of 10): 2 Pain Intensity Range: 8 Objective Objective: Neuro: B LE sensation is WNL to light touch. Girth at joint line: L knee 40 cm, R knee 42 cm ROM: L knee 0-97 degrees; R knee 0-15-45 #F MMT: L knee flex= 33, ext= 39 #F; R knee flex= 19, ext= 14 #F TU sec Balance/Special Test Scores Lower Extremity Functional Score: 10 Goals Goal 1:: Decrease R knee pain x 50% to aid with sleep Goal Time Frame: 4-6 Weeks Goal 2:: Increase R knee flex ROM x 40 degrees to aid with restoring a more normalized gait pattern Goal Time Frame: 4-6 Weeks Goal 3:: Pt will perform TUG test in under 15 seconds to aid with community mobility Goal Time Frame: 4-6 Weeks Goal 4:: Increase R knee strength x 10#F to aid with stair negotiation Goal Time Frame: 4-6 Weeks Goal 5:: I with HEP Goal Time Frame: 4-6 Weeks Rehabilitation Potential Physical Therapy Diagnosis: Pt has R knee pain, weakness, and limited ROM secondary to R MCL sprain Rehabilitation Potential: Good Anticipated Interventions Patient/Client Instruction: Educate patient on: Condition and Plan of Care For the Purpose of:: To improve self management Therapeutic Exercise to Include: Strength training, Endurance training, Balance training, Gait and locomotor training, Passive ROM, Active ROM and Dynamic Lumbar Stabilization For the Purpose of:: To decrease pain, To increase ROM and To improve muscle performance and motor function Cryotherapy (ice pack, ice massage): Yes For the Purpose of:: To decrease pain Text: Thank you for the opportunity to evaluate your patient. For Medicare and Medicare HMO plans, please review the plan of care and approve it. It will need to be FAXED BACK to us at [phone] for Medicare purposes. For Medicare only, by signing this I certify the plan of care. Please let me know if there are questions or concerns regarding this plan of care. Physician Signature: Date:
--- NOTE | 2023-11-18 10:06 | HP.PTDCSUM_ITS ---
Discharge Summary D/C summary: It has been my pleasure to treat DAVID LEW referred by Dr. John Leone DO, with the diagnosis of R MCL sprain for a total of 6 visit(s). Discharge Date: Please see the following information for a summary of their discharge status. Subjective Subjective: Pt reports feeling great and doesn't feel like he needs to continue therapy. Pt reports he has no pain when ambulating or completing other activities. Pain R knee: Pain Intensity (Out of 10): 0 Overall Improvement % Improvement: 90 Objective Objective/Function: Pain level 0/10 and pt notes occasional difficulties with sleep ROM: R knee flexion= 105 deg , ext= 5 deg MMT: R knee flexion= 34, ext= 34 #F TU sec Pt I with HEP Goals Goal 1:: Decrease R knee pain x 50% to aid with sleep Goal Progress: Goal Met Goal 2:: Increase R knee flex ROM x 40 degrees to aid with restoring a more normalized gait pattern Goal Progress: Goal Met Goal 3:: Pt will perform TUG test in under 15 seconds to aid with community mobility Goal Progress: Goal Met Goal 4:: Increase R knee strength x 10#F to aid with stair negotiation Goal Progress: Goal Met Goal 5:: I with HEP Goal Progress: Goal Met Plan Plan: Discharged to [facility]. D/C Information d/c sentence: If there are questions or concerns regarding this patient's physical therapy, miranda giraldo feel free to call me at [phone]. Thank you for the referral of this patient. Sincerely, Richar Tam, PT, ATC Balance/Gait/Functional tests Balance/Special Test Scores Lower Extremity Functional Score: 53 Improvement % Improvement: 90
== END 2023-11-18 10:47 | disposition home or self-care (01) ==
LOC: PT 09:30
PROVIDERS: PCP Family Medicine; Referring Provider Student in an Organized Health Care Education/Training Program; Visit Provider Student in an Organized Health Care Education/Training Program
DX: S83.411D Sprain of medial collateral ligament of right knee, subsequent encounter (principal); Z96.651 Presence of right artificial knee joint
CPT/HCPCS: 97110; 97161; 97530

== ENCOUNTER → 2023-12-01 | Outpatient (CLI) | payer MEDICARE, SELFPAY ==
--- NOTE | 2023-12-01 16:24 | STRESSREP_ITS ---
Stress Test Report Exercise myocardial perfusion stress test. 68-year-old man with a history of coronary artery disease Stress protocol: Resting EKG demonstrates normal sinus rhythm with a rate of 71 bpm resting blood pressure is 118/66 mmHg. The patient exercised according to the regular Carlo protocol for a total duration of 7 minutes and 30 seconds attaining a maximum heart rate of 153 bpm which was 100% of maximum predicted heart rate; the maximum workload was 10.1 metabolic equivalents. At rest there were no ST or T wave changes noted to suggest ischemia and at peak exercise upsloping ST changes only were noted which did not meet the criteria for ischemia. No clinical angina was noted the test was terminated due to the target heart rate being achieved/fatigue. The peak blood pressure was 160/72 mmHg. Rate-pressure product was 24,100. Myocardial perfusion protocol. 14.5 mCi of technetium 99m sestamibi was injected at rest. The patient e xercised according to regular Carlo protocol for total duration of 7 minutes and 30 seconds and at peak exercise 44.6 mCi of technetium 99m sestamibi was injected stress images were obtained stress and rest images were reconstructed in comparing the short axis vertical long and horizontal long axis. Gated images were also obtained. Perfusion SPECT analysis: Review of the stress images demonstrate normal uptake of tracer noted in all areas of the myocardium. The resting images similarly demonstrate normal uptake of tracer noted in all areas of the myocardium. No areas of reversibility are n oted to suggest ischemia no previous infarct was noted. Gated SPECT analysis: The gated ejection fraction is 66%. Conclusion: Normal exercise myocardial perfusion stress test at a high workload Preserved ejection fraction.
== END | disposition home or self-care (01) ==
PROVIDERS: PCP Family Medicine; Referring Provider Internal Medicine Cardiovascular Disease; Visit Provider Internal Medicine Cardiovascular Disease
DX: I25.10 Atherosclerotic heart disease of native coronary artery without angina pectoris (principal); Z95.5 Presence of coronary angioplasty implant and graft
CPT/HCPCS: 78452; 93017; A9500; A4216

== ENCOUNTER → 2024-03-28 | Outpatient (CLI) | payer MEDICARE, SELFPAY ==
[2024-03-28 10:55] LABS: ALB/GLOB Ratio 1.1 RATIO (0.9-2.4); AST(SGOT) 20 U/L (15-37); Alanine Aminotransfer ALT/SGPT 17 U/L (16-61); Albumin, Serum 3.7 g/dL (3.2-5.0); Alkaline Phosphatase 43 U/L (45-117); Anion Gap 7 (5-15); BUN 17 mg/dL (7-18); BUN/Creat Ratio 13.9 RATIO (10-20); Calcium,Total 9.2 mg/dL (8.5-10.1); Chloride 107 mmol/L (98-107); Cholesterol 89 mg/dL (200); Creatinine, Serum 1.22 mg/dL (0.70-1.30); EST Glomerular Filtration Rate 63 mL/min (>60); Est Glom Filt Rate - Afr Amer 76 mL/min (>60); Globulin 3.4 g/dL (2.2-4.2); Glucose 131 mg/dL (74-106); High Density Lipoprotein 29 mg/dL; Potassium 4.3 mmol/L (3.5-5.1); Protein, Total 7.1 g/dL (6.4-8.2); Sodium Level 141 mmol/L (136-145); Triglycerides 166 mg/dL; Very Low Density Lipoprotein 33 mg/dL (5-40)
[2024-03-28 11:11] LABS: Protein, Urine (Random) 9.1 mg/dL (<11.9); Protein:Creat Ratio 73 mg/g CRE (0-200)
== END | disposition home or self-care (01) ==
LOC: MFPLAB 08:29
PROVIDERS: PCP Family Medicine; Referring Provider Family Medicine; Visit Provider Family Medicine
DX: E11.9 Type 2 diabetes mellitus without complications (principal)
CPT/HCPCS: 36415; 80053; 80061; 82570; 84156

== ENCOUNTER → 2024-03-31 | Outpatient (CLI) | payer MEDICARE, SELFPAY ==
[2024-03-31 15:50] LABS: AST(SGOT) 21 U/L (15-37); Alanine Aminotransfer ALT/SGPT 17 U/L (16-61); Albumin, Serum 3.7 g/dL (3.2-5.0); Alkaline Phosphatase 46 U/L (45-117); Bilirubin, Direct 0.42 mg/dL (0.00-0.30); Globulin 3.4 g/dL (2.2-4.2); Protein, Total 7.1 g/dL (6.4-8.2)
== END | disposition home or self-care (01) ==
LOC: MFPLAB 11:11
PROVIDERS: PCP Family Medicine; Visit Provider Family Medicine
DX: R17 Unspecified jaundice (principal)
CPT/HCPCS: 36415; 80076

== ENCOUNTER → 2024-04-01 | Outpatient (CLI) | payer MEDICARE, SELFPAY ==
[2024-04-03 09:07] LABS: HEPATITIS B SURFACE AG Negative (Negative); Hep C Antibodies Non Reactive (Non Reactive); Hepatitis A IgM Antibody Negative (Negative); Hepatitis B Core AB IgM Negative (Negative)
== END | disposition home or self-care (01) ==
LOC: MFPLAB 11:31
PROVIDERS: PCP Family Medicine; Referring Provider Family Medicine; Visit Provider Family Medicine
DX: R17 Unspecified jaundice (principal)
CPT/HCPCS: 36415; 80074

== ENCOUNTER → 2024-05-16 | Outpatient (CLI) | payer MEDICARE, SELFPAY ==
--- NOTE | 2024-05-16 07:49 | US_ITS ---
PROCEDURE: ABD LIMITED W/ ELASTOGRAPHY REASON FOR EXAM: FATTY LIVER COMPARISON: Comparison is made with prior study dated June 04, 2020. TECHNIQUE: Right upper quadrant abdominal ultrasound. [facility] ElastQ Imaging shear wave elastography for non-invasive assessment of liver tissue stiffness. [facility] EPIQ Elite. FINDINGS: LIVER: Size: Unremarkable Length: 17.7 cm Echotexture: Diffusely echogenic suggesting fatty infiltration Contour: Normal Lesions: None identified Elastography: EQI Med: 6.8 kPa EQI Med [place]elo: 1.5 m/s IQR/Med: 6.3 %* GALLBLADDER: Surgically absent. COMMON BILE DUCT: Normal it measures 5.7 mm. PANCREAS: Normal Visualized portions of the right kidney are unremarkable. No right upper quadrant ascites. US/ABD Limited w/ Elastography IMPRESSION: MILD HEPATIC FIBROSIS Fatty infiltration of the liver. Reference Values: SRU <1.37 m/s (5.7kPa): No to mild fibrosis 1.37 m/s - 2.2 m/s: Moderate to severe fibrosis >2.2 m/s (15kPa): Significant fibrosis / cirrhosis METAVIR Score F2 or higher: 1.34 m/s (5.7kPa) F3 or higher: 1.55 m/s (7.3kPa) F4: 1.80 m/s (10kPa) * If the IQR/Med is >30%, the variance in the measurements is a large and the a ccuracy of the measurement may be in question. Reading Location: [place] [id number]
== END | disposition home or self-care (01) ==
LOC: US 07:43
PROVIDERS: PCP Family Medicine; Referring Provider Internal Medicine Gastroenterology; Visit Provider Internal Medicine Gastroenterology
DX: K76.0 Fatty (change of) liver, not elsewhere classified (principal)
CPT/HCPCS: 76705; 76981

== ENCOUNTER → 2024-06-23 | Outpatient (CLI) | payer MEDICARE, SELFPAY ==
[2024-06-23 10:10] LABS: Absolute Neutrophil Count 3.8 X10^3/uL (2.0-7.7); Basophil# 0.04 X10^3/uL; Basophil% 0.6 % (0-1); Eosinophil# 0.31 X10^3/uL; Eosinophils% 4.9 % (0-5); Hematocrit 45.5 % (40-54); Hemoglobin 15.7 g/dL (13.0-16.5); Lymphocyte % 25.1 % (19-41); Mean Corp Hgb Conc 34.5 g/dL (32-36); Mean Corpuscular Hgb 32.5 pg (27.0-32.0); Mean Corpuscular Volume 94.2 fL (80-94); Mean Platelet Vol. 9.2 fl (6.2-12.0); Monocyte# 0.56 X10^3/uL; Monocyte% 8.8 % (0-10); NRBC Flagged by Analyzer 0 % (0-5); Neutrophil # 3.84 X10^3/uL (2.7-7.7); Neutrophil % 60.3 % (47-70); Platelet Count 122 K/mm3 (150-450); RBC Distribution Width CV 13.4 % (11.6-14.6); RBC Distribution Width SD 46.2 fl (35.1-43.9); Red Blood Count 4.83 M/mm3 (4.6-6.2); White Blood Count 6.4 K/mm3 (4.4-11.0)
[2024-06-23 10:43] LABS: ALB/GLOB Ratio 1.6 RATIO (0.9-2.4); AST(SGOT) 18 U/L (<=37); Alanine Aminotransfer ALT/SGPT 9 U/L (<=46); Albumin, Serum 4.2 g/dL (3.4-4.8); Alkaline Phosphatase 41 U/L (40-129); Anion Gap 10 (5-15); BUN 22 mg/dL (4-19); BUN/Creat Ratio 18.8 RATIO (10-20); Calcium,Total 9.3 mg/dL (7.6-11.0); Carbon Dioxide 24.6 mmol/L (21.0-32.0); Chloride 104 mmol/L (98-108); Creatinine, Serum 1.17 mg/dL (0.70-1.20); EST Glomerular Filtration Rate 68 (>60); Globulin 2.7 g/dL (2.2-4.2); Glucose 120 mg/dL (70-99); PSA,Total - Annual Screen 1.98 ng/mL (0.02-4.00); Potassium 4.4 mmol/L (3.3-5.1); Protein, Total 6.9 g/dL (5.9-8.4); Sodium Level 139 mmol/L (133-145); Total Bilirubin 1.74 mg/dL (0.00-1.30)
== END | disposition home or self-care (01) ==
LOC: MFPLAB 09:11
PROVIDERS: PCP Family Medicine; Referring Provider Family Medicine; Visit Provider Family Medicine
DX: Z12.5 Encounter for screening for malignant neoplasm of prostate (principal); R53.83 Other fatigue; R17 Unspecified jaundice
CPT/HCPCS: 36415; 80053; 84153; 84403; 84443; 85025; G0103

== ENCOUNTER → 2024-09-29 | Outpatient (CLI) | payer MEDICARE, SELFPAY ==
[2024-09-29 11:07] LABS: Creatinine, Urine (random) 104.00 mg/dL (39.00-259.00); Microalbumin,Random Urine < 12.0 mg/L (<20 mg/L)
[2024-09-29 11:59] LABS: AST(SGOT) 20 U/L (<=37); Alanine Aminotransfer ALT/SGPT 8 U/L (<=46); Albumin, Serum 4.2 g/dL (3.4-4.8); Alkaline Phosphatase 40 U/L (40-129); Anion Gap 13 (5-15); BUN 23 mg/dL (4-19); BUN/Creat Ratio 17.1 RATIO (10-20); Calcium,Total 9.4 mg/dL (7.6-11.0); Carbon Dioxide 23.9 mmol/L (21.0-32.0); Chloride 101 mmol/L (98-108); Cholesterol 102 mg/dL (<=200); Globulin 2.8 g/dL (2.2-4.2); Glucose 123 mg/dL (70-99); Low Density Lipoprotein Calc. 50 mg/dL; Potassium 4.9 mmol/L (3.3-5.1); Triglycerides 112 mg/dL; Very Low Density Lipoprotein 22 mg/dL (5-40); cholesterol:hdl ratio screen 3.40
== END | disposition home or self-care (01) ==
LOC: MFPLAB 08:46
PROVIDERS: PCP Family Medicine; Referring Provider Family Medicine; Visit Provider Family Medicine
DX: E11.9 Type 2 diabetes mellitus without complications (principal)
CPT/HCPCS: 36415; 80053; 80061; 82043; 82570